=== PATIENT | female | born 1995 | race Caucasian/White ===

== ENCOUNTER 2017-09-11 07:09 | Emergency (ER) | payer OTHER ==
[~2017-09-11] VITALS: Ht 165.1 cm; Wt 75.0 kg
[2017-09-11] MEDS ORDERED: QUET100T PO (07:24)
[2017-09-11] MEDS ORDERED: LURA20TA PO (07:24)
[2017-09-11 08:03] LABS: BASOPHILS % (AUTO) 0.9 % (0.0-2.0); EOSINOPHILS % (AUTO) 3.6 % (1.0-6.0); HEMATOCRIT 35.6 % (36-46); HEMOGLOBIN 11.6 g/dL (12.0-16.0); LYMPHOCYTES % (AUTO) 23.6 % (22.0-44.0); MEAN CORPUSCULAR HEMOGLOBIN 25.1 pg (26.0-34.0); MEAN CORPUSCULAR HGB CONC 32.7 G/dL (31.0-37.0); MEAN CORPUSCULAR VOLUME 77 fL (80-100); MONOCYTES # (AUTO) 0.4 K/uL (0.1-1.0); MONOCYTES % (AUTO) 4.6 % (2.0-9.0); NEUTROPHILS # (AUTO) 5.8 K/uL (1.8-7.7); NEUTROPHILS % (AUTO) 67.3 % (40.0-70.0); PLATELET COUNT (AUTO) 332 K/uL (150-450); RED BLOOD CELL COUNT(AUTO) 4.64 MIL/uL (4.00-5.20); RED CELL DISTRIBUTION WIDTH 16.2 % (11.5-14.5)
[2017-09-11 08:12] LABS: ANION GAP 6 mmol/L (8-16); CALCIUM, TOTAL 8.3 mg/dL (8.8-10.5); CARBON DIOXIDE 27 mmol/L (22-29); CHLORIDE 103 mmol/L (98-107); CREATININE 0.93 mg/dL (0.60-1.30); GLOMERULAR FILTR. RATE CALC > 60 mL/min (>60); GLUCOSE,RANDOM 90 mg/dL (70-110); POTASSIUM 3.7 mmol/L (3.5-5.1); SODIUM SERUM 136 mmol/L (136-145); UREA NITROGEN, BLOOD 14 mg/dL (7-18)
[2017-09-11 08:18] LABS: ALANINE AMINOTRANSFERASE 30 U/L (12-78); ALKALINE PHOSPHATASE 80 U/L (46-116); ASPARTATE AMINOTRANSFERASE 17 U/L (15-37); BILIRUBIN,TOTAL 0.3 mg/dL (0.1-1.0); LIPASE 106 U/L (73-393); TOTAL PROTEIN, SERUM 7.5 g/dL (6.4-8.2)
[2017-09-11 08:30] VITALS: BP 125/68
== END 2017-09-11 09:12 | disposition home or self-care (01) ==
LOC: EMS 07:13
DX: S20.211A Contusion of right front wall of thorax, initial encounter (principal); M94.0 Chondrocostal junction syndrome [Tietze]; F17.210 Nicotine dependence, cigarettes, uncomplicated; X58.XXXA Exposure to other specified factors, initial encounter; Y93.89 Activity, other specified; Y92.89 Other specified places as the place of occurrence of the external cause; Y99.8 Other external cause status
CPT/HCPCS: 71046; 93005; 99285

== ENCOUNTER 2019-12-15 07:29 | Inpatient (IN) | payer MEDICAID, OTHER ==
[~2019-12-15] VITALS: Ht 167.6 cm; Wt 100.0 kg
[~2019-12-15 07:29] MED LIST: LURA20TA PO; QUET100T PO
[2019-12-15 08:11] LABS: BASOPHILS % (AUTO) 0.7 % (0.0-2.0); EOSINOPHILS % (AUTO) 1.8 % (1.0-6.0); HEMATOCRIT 36.5 % (36-46); HEMOGLOBIN 11.8 g/dL (12.0-16.0); LYMPHOCYTES # (AUTO) 2.5 K/uL (1.0-4.8); LYMPHOCYTES % (AUTO) 24.6 % (22.0-44.0); MEAN CORPUSCULAR HEMOGLOBIN 25.4 pg (26.0-34.0); MEAN CORPUSCULAR HGB CONC 32.3 G/dL (31.0-37.0); MEAN CORPUSCULAR VOLUME 79 fL (80-100); MONOCYTES # (AUTO) 0.4 K/uL (0.1-1.0); MONOCYTES % (AUTO) 4.1 % (2.0-9.0); NEUTROPHILS # (AUTO) 7.1 K/uL (1.8-7.7); NEUTROPHILS % (AUTO) 68.8 % (40.0-70.0); PLATELET COUNT (AUTO) 355 K/uL (150-450); RED BLOOD CELL COUNT(AUTO) 4.64 MIL/uL (4.00-5.20); RED CELL DISTRIBUTION WIDTH 14.9 % (11.5-14.5)
[2019-12-15 08:21] LABS: ANION GAP 7 mmol/L (8-16); CALCIUM, TOTAL 8.7 mg/dL (8.8-10.5); CARBON DIOXIDE 27 mmol/L (22-29); CHLORIDE 103 mmol/L (98-107); CREATININE 1.06 mg/dL (0.60-1.30); GLOMERULAR FILTR. RATE CALC > 60 mL/min (>60); GLUCOSE,RANDOM 97 mg/dL (70-110); POTASSIUM 3.6 mmol/L (3.5-5.1); SODIUM SERUM 137 mmol/L (136-145); UREA NITROGEN, BLOOD 12 mg/dL (7-18)
[2019-12-15 08:27] LABS: ALANINE AMINOTRANSFERASE 41 U/L (12-78); ALBUMIN 4.1 g/dL (3.4-5.0); ALKALINE PHOSPHATASE 79 U/L (46-116); ASPARTATE AMINOTRANSFERASE 15 U/L (15-37); BILIRUBIN,TOTAL 0.3 mg/dL (0.1-1.0); TOTAL PROTEIN, SERUM 7.5 g/dL (6.4-8.2)
[2019-12-15] MEDS ORDERED: DiphenhydrAMINE HCL 50 MG/ML VIAL IM ONE (08:30)
[2019-12-15] MEDS ORDERED: HALOPERIDOL LACTATE 5 MG/ML VIAL IM ONE (08:30)
[2019-12-15] MEDS ORDERED: LORazepam 2 MG/ML VIAL IM ONE (08:30)
[2019-12-15 08:57] LABS: AMPHET/METH SCREEN,URINE POSITIVE (NEGATIVE); BARBITURATE SCREEN, URINE NEGATIVE (NEGATIVE); BENZODIAZEPINES SCREEN,URINE NEGATIVE (NEGATIVE); CANNABINOID SCREEN,URINE NEGATIVE (NEGATIVE); COCAINE SCREEN,URINE NEGATIVE (NEGATIVE); METHADONE SCREEN, URINE NEGATIVE (NEGATIVE); OPIATE SCREEN,URINE NEGATIVE (NEGATIVE)
[2019-12-15 08:59] LABS: PHENCYCLIDINE SCREEN,URINE NEGATIVE (NEGATIVE)
[2019-12-15] MEDS ORDERED: LORazepam 2 MG TABLET PO PRN (09:30)
[2019-12-15] MEDS ORDERED: ZOLPIDEM TARTRATE 10 MG TABLET PO PRN (09:30)
[2019-12-15] MEDS ORDERED: HALOPERIDOL 5 MG TABLET PO PRN (09:30)
[2019-12-15 09:39] LABS: COVID AG,FIA SOURCE NASOPHARYNGEAL
[2019-12-15 17:52] VITALS: BP 115/67
[2019-12-16] MEDS ORDERED: LOPERAMIDE HCL 2 MG CAPSULE PO PRN (07:30)
[2019-12-16] MEDS ORDERED: ALBUTEROL SULFATE HFA 90 MCG/PUFF 8 GM INHALER IH PRN (07:30)
[2019-12-16] MEDS ORDERED: DOCUSATE SODIUM 100 MG CAPSULE PO PRN (07:30)
[2019-12-16] MEDS ORDERED: PETROLATUM,WHITE 28 GM JELLY TP PRN (07:30)
[2019-12-16] MEDS ORDERED: MAG HYDROX/AL HYDROX/SIMETH ES 30 ML SUSPENSION UDCUP PO PRN (07:30)
[2019-12-16] MEDS ORDERED: MAGNESIUM HYDROXIDE SUSPENSION 30 ML UDCUP PO PRN (07:30)
[2019-12-16] MEDS ORDERED: GuaiFENesin/D-METHORPHAN [SUGAR-FREE] 200-20MG/10 ML SYRUP UDCUP PO PRN (07:30)
[2019-12-16] MEDS ORDERED: ACETAMINOPHEN 325 MG TABLET PO PRN (07:30)
[2019-12-16] MEDS ORDERED: NICOTINE 14 MG/24 HOUR PATCH TD PRN (07:30)
[2019-12-16] MEDS ORDERED: ONDANSETRON HCL 4 MG TABLET PO PRN (07:30)
[2019-12-16] MEDS ORDERED: IBUPROFEN 400 MG TABLET PO PRN (07:30)
[2019-12-16] MEDS ORDERED: CloNIDine HCL 0.1 MG TABLET PO PRN (07:30)
[2019-12-16 08:00] VITALS: BP 122/70
[2019-12-16] MEDS: QUEtiapine FUMARATE 100 MG TABLET PO SCH (11:03)
[2019-12-16 16:14] VITALS: BP 112/65
[2019-12-16] MEDS: LURASIDONE HCL 20 MG TABLET PO SCH (20:27)
[2019-12-17 07:38] LABS: CHOL/HDL RATIO 2.8 (3.9-5.7)
[2019-12-17] MEDS: QUEtiapine FUMARATE 100 MG TABLET PO SCH (08:42)
[2019-12-17] MEDS: LURASIDONE HCL 20 MG TABLET PO SCH (20:30)
[2019-12-18 08:00] VITALS: BP 124/61
[2019-12-18] MEDS: QUEtiapine FUMARATE 100 MG TABLET PO SCH (08:15)
[2019-12-18] MEDS ORDERED: QUET100T PO (14:44)
[2019-12-18] MEDS ORDERED: LURA20TA PO (14:44)
== END 2019-12-18 14:55 | disposition home or self-care (01) | DRG 750 ==
LOC: EMS 07:30 → 3EC 09:21
PROVIDERS: ADMIT Psychiatry & Neurology Psychiatry; ATTEND Psychiatry & Neurology Psychiatry
DX: F20.9 Schizophrenia, unspecified (principal); F10.10 Alcohol abuse, uncomplicated; F17.200 Nicotine dependence, unspecified, uncomplicated; G44.209 Tension-type headache, unspecified, not intractable; F29 Unspecified psychosis not due to a substance or known physiological condition; R45.850 Homicidal ideations; Z59.0 Homelessness; Z79.899 Other long term (current) drug therapy; Z03.818 Encounter for observation for suspected exposure to other biological agents ruled out
CPT/HCPCS: 87426; 99291; G0480; J1200; J1630; J2060

== ENCOUNTER 2020-08-19 17:39 | Inpatient (IN) | payer MEDICAID ==
[~2020-08-19] VITALS: Ht 170.2 cm; Wt 109.3 kg
[2020-08-20] MEDS ORDERED: LORazepam 2 MG TABLET PO PRN (08:45)
[2020-08-20] MEDS ORDERED: HALOPERIDOL 5 MG TABLET PO PRN (08:45)
[2020-08-20] MEDS ORDERED: ZOLPIDEM TARTRATE 10 MG TABLET PO PRN (08:45)
[2020-08-20 16:25] VITALS: BP 122/73
[2020-08-20] MEDS ORDERED: ONDANSETRON HCL 4 MG TABLET PO PRN (23:45)
[2020-08-20] MEDS ORDERED: PETROLATUM,WHITE 28 GM JELLY TP PRN (23:45)
[2020-08-20] MEDS ORDERED: MAGNESIUM HYDROXIDE SUSPENSION 30 ML UDCUP PO PRN (23:45)
[2020-08-20] MEDS ORDERED: LOPERAMIDE HCL 2 MG CAPSULE PO PRN (23:45)
[2020-08-20] MEDS ORDERED: BACITRACIN 28 GM OINTMENT TP PRN (23:45)
[2020-08-20] MEDS ORDERED: ACETAMINOPHEN 325 MG TABLET PO PRN (23:45)
[2020-08-20] MEDS ORDERED: ALBUTEROL SULFATE HFA 90 MCG/PUFF 8 GM INHALER IH PRN (23:45)
[2020-08-20] MEDS ORDERED: OMEPRAZOLE 20 MG CAPSULE PO PRN (23:45)
[2020-08-20] MEDS ORDERED: MAG HYDROX/AL HYDROX/SIMETH ES 30 ML SUSPENSION UDCUP PO PRN (23:45)
[2020-08-20] MEDS ORDERED: BENZOCAINE/MENTHOL LOZENGE PO PRN (23:45)
[2020-08-20] MEDS ORDERED: CloNIDine HCL 0.1 MG TABLET PO PRN (23:45)
[2020-08-20] MEDS ORDERED: DOCUSATE SODIUM 100 MG CAPSULE PO PRN (23:45)
[2020-08-21 04:18] VITALS: BP 118/76
[2020-08-21 07:36] LABS: BASOPHILS % (AUTO) 1.1 % (0.0-2.0); EOSINOPHILS % (AUTO) 4.4 % (1.0-6.0); HEMATOCRIT 36.4 % (36-46); HEMOGLOBIN 11.5 g/dL (12.0-16.0); LYMPHOCYTES # (AUTO) 2.6 K/uL (1.0-4.8); LYMPHOCYTES % (AUTO) 36.8 % (22.0-44.0); MEAN CORPUSCULAR HGB CONC 31.5 G/dL (31.0-37.0); MEAN CORPUSCULAR VOLUME 82 fL (80-100); MONOCYTES # (AUTO) 0.3 K/uL (0.1-1.0); MONOCYTES % (AUTO) 4.1 % (2.0-9.0); NEUTROPHILS # (AUTO) 3.8 K/uL (1.8-7.7); NEUTROPHILS % (AUTO) 53.6 % (40.0-70.0); PLATELET COUNT (AUTO) 289 K/uL (150-450); RED BLOOD CELL COUNT(AUTO) 4.42 MIL/uL (4.00-5.20); RED CELL DISTRIBUTION WIDTH 14.3 % (11.5-14.5)
[2020-08-21 07:51] LABS: HEMOGLOBIN A1C 5.6 % (3.8-5.6)
[2020-08-21 08:08] LABS: ALANINE AMINOTRANSFERASE 51 U/L (12-78); ALBUMIN 2.8 g/dL (3.4-5.0); ALKALINE PHOSPHATASE 104 U/L (46-116); ANION GAP 10 mmol/L (8-16); ASPARTATE AMINOTRANSFERASE 23 U/L (15-37); BILIRUBIN,TOTAL 0.3 mg/dL (0.1-1.0); CALCIUM, TOTAL 8.2 mg/dL (8.8-10.5); CARBON DIOXIDE 23 mmol/L (22-29); CHLORIDE 110 mmol/L (98-107); CHOLESTEROL 131 mg/dL (131-200); CREATININE 0.87 mg/dL (0.60-1.30); FREE T4 (FREE THYROXINE) 0.72 ng/dL (0.76-1.46); GLOMERULAR FILTR. RATE CALC > 60 mL/min (>60); GLUCOSE,RANDOM 92 mg/dL (70-110); HCG,QUANTITATIVE 1 mIU/mL (0-6); HDL CHOLESTEROL 44 mg/dL (40-60); LDL CHOL (CALC.) 72 mg/dL (0-130); POTASSIUM 4.2 mmol/L (3.5-5.1); SODIUM SERUM 143 mmol/L (136-145); THYROID STIMULATING HORMONE 0.61 uIU/mL (0.36-3.74); TOTAL PROTEIN, SERUM 5.8 g/dL (6.4-8.2); TRIGLYCERIDES 77 mg/dL (15-150); UREA NITROGEN, BLOOD 14 mg/dL (7-18)
[2020-08-21 08:19] VITALS: BP 101/56
[2020-08-21 16:06] VITALS: BP 109/63
[2020-08-21] MEDS: OLANZapine 5 MG TABLET PO SCH (20:29)
[2020-08-22 04:06] VITALS: BP 126/76
[2020-08-22 16:08] VITALS: BP 103/68
[2020-08-22] MEDS: OLANZapine 5 MG TABLET PO SCH (19:54)
[2020-08-22] MEDS: IBUPROFEN 600 MG TABLET PO PRN (20:00)
[2020-08-23 00:54] VITALS: BP 141/85
[2020-08-23 08:15] VITALS: BP 119/58
[2020-08-23 16:12] VITALS: BP 112/63
[2020-08-23] MEDS: OLANZapine 5 MG TABLET PO SCH (20:22)
[2020-08-24 03:03] VITALS: BP 116/75
[2020-08-24 08:05] VITALS: BP 114/72
[2020-08-24 13:53] VITALS: BP 128/66
[2020-08-24] MEDS: IBUPROFEN 600 MG TABLET PO PRN ×2 (13:53→20:39)
[2020-08-24 16:21] VITALS: BP 121/72
[2020-08-24] MEDS: OLANZapine 5 MG TABLET PO SCH (20:23)
[2020-08-25 00:16] VITALS: BP 135/86
[2020-08-25] MEDS: IBUPROFEN 600 MG TABLET PO PRN ×2 (04:14→11:55)
[2020-08-25 08:48] VITALS: BP 120/71
[2020-08-25] MEDS ORDERED: OLAN5TAB52 PO (11:06)
[2020-08-25 11:48] VITALS: BP 120/74
== END 2020-08-25 12:45 | disposition home or self-care (01) | DRG 750 ==
LOC: B3A 08-20 08:45
PROVIDERS: ADMIT Psychiatry & Neurology Psychiatry; ATTEND Psychiatry & Neurology Psychiatry
DX: F20.0 Paranoid schizophrenia (principal); Z59.0 Homelessness; R45.851 Suicidal ideations; F41.9 Anxiety disorder, unspecified; G47.00 Insomnia, unspecified; K59.00 Constipation, unspecified; F15.10 Other stimulant abuse, uncomplicated
CPT/HCPCS: 80053; 80061; 83036; 84436; 84439; 84443; 84702; 85025

== ENCOUNTER 2021-07-22 09:05 | Inpatient (IN) | payer MEDICAID, OTHER ==
[~2021-07-22] VITALS: Ht 170.2 cm; Wt 115.6 kg
[~2021-07-22 09:05] MED LIST changes: -LURA20TA PO; +OLAN5TAB52 PO; -QUET100T PO
[2021-07-22 09:54] LABS: BASOPHILS % (AUTO) 0.9 % (0.0-2.0); HEMATOCRIT 37.5 % (36-46); HEMOGLOBIN 12.3 g/dL (12.0-16.0); LYMPHOCYTES # (AUTO) 2.3 K/uL (1.0-4.8); LYMPHOCYTES % (AUTO) 23.8 % (22.0-44.0); MEAN CORPUSCULAR HEMOGLOBIN 25.5 pg (26.0-34.0); MEAN CORPUSCULAR HGB CONC 32.7 G/dL (31.0-37.0); MEAN CORPUSCULAR VOLUME 78 fL (80-100); MONOCYTES # (AUTO) 0.4 K/uL (0.1-1.0); MONOCYTES % (AUTO) 4.2 % (2.0-9.0); NEUTROPHILS # (AUTO) 6.7 K/uL (1.8-7.7); NEUTROPHILS % (AUTO) 70.1 % (40.0-70.0); PLATELET COUNT (AUTO) 345 K/uL (150-450); RED BLOOD CELL COUNT(AUTO) 4.82 MIL/uL (4.00-5.20); RED CELL DISTRIBUTION WIDTH 14.7 % (11.5-14.5)
[2021-07-22 10:09] LABS: ANION GAP 9 mmol/L (8-16); CALCIUM, TOTAL 9.1 mg/dL (8.8-10.5); CARBON DIOXIDE 26 mmol/L (22-29); CHLORIDE 105 mmol/L (98-107); GLOMERULAR FILTR. RATE CALC > 60 mL/min (>60); GLUCOSE,RANDOM 90 mg/dL (70-110); POTASSIUM 3.5 mmol/L (3.5-5.1); SODIUM SERUM 140 mmol/L (136-145); UREA NITROGEN, BLOOD 13 mg/dL (7-18)
[2021-07-22 10:12] LABS: ALANINE AMINOTRANSFERASE 62 U/L (12-78); ALBUMIN 4.2 g/dL (3.4-5.0); ALKALINE PHOSPHATASE 134 U/L (46-116); ASPARTATE AMINOTRANSFERASE 21 U/L (15-37); BILIRUBIN,TOTAL 0.5 mg/dL (0.1-1.0); TOTAL PROTEIN, SERUM 8.1 g/dL (6.4-8.2)
[2021-07-22 10:12] LABS: AMPHET/METH SCREEN,URINE POSITIVE (NEGATIVE); BARBITURATE SCREEN, URINE NEGATIVE (NEGATIVE); BENZODIAZEPINES SCREEN,URINE NEGATIVE (NEGATIVE); CANNABINOID SCREEN,URINE NEGATIVE (NEGATIVE); COCAINE SCREEN,URINE NEGATIVE (NEGATIVE); METHADONE SCREEN, URINE NEGATIVE (NEGATIVE); OPIATE SCREEN,URINE NEGATIVE (NEGATIVE)
[2021-07-22 10:15] LABS: PHENCYCLIDINE SCREEN,URINE NEGATIVE (NEGATIVE)
[2021-07-22 15:43] LABS: COVID AG,FIA SOURCE NASOPHARYNGEAL
[2021-07-22 22:27] VITALS: BP 130/81
[2021-07-23] VITALS: BP 126/76
[2021-07-23 08:10] LABS: FREE T4 (FREE THYROXINE) 1.03 ng/dL (0.76-1.46); THYROID STIMULATING HORMONE 0.48 uIU/mL (0.36-3.74)
[2021-07-23] MEDS ORDERED: ALBUTEROL SULFATE HFA 90 MCG/PUFF 8 GM INHALER IH PRN (12:00)
[2021-07-23] MEDS ORDERED: ONDANSETRON HCL 4 MG TABLET PO PRN (12:00)
[2021-07-23] MEDS ORDERED: DOCUSATE SODIUM 100 MG CAPSULE PO PRN (12:00)
[2021-07-23] MEDS ORDERED: ACETAMINOPHEN 325 MG TABLET PO PRN (12:00)
[2021-07-23] MEDS ORDERED: GuaiFENesin/D-METHORPHAN [SUGAR-FREE] 200-20MG/10 ML SYRUP UDCUP PO PRN (12:00)
[2021-07-23] MEDS ORDERED: MAG HYDROX/AL HYDROX/SIMETH ES 30 ML SUSPENSION UDCUP PO PRN (12:00)
[2021-07-23] MEDS ORDERED: IBUPROFEN 400 MG TABLET PO PRN (12:00)
[2021-07-23] MEDS ORDERED: PETROLATUM,WHITE 28 GM JELLY TP PRN (12:00)
[2021-07-23] MEDS ORDERED: LOPERAMIDE HCL 2 MG CAPSULE PO PRN (12:00)
[2021-07-23] MEDS ORDERED: CloNIDine HCL 0.1 MG TABLET PO PRN (12:00)
[2021-07-23] MEDS ORDERED: MAGNESIUM HYDROXIDE SUSPENSION 30 ML UDCUP PO PRN (12:00)
[2021-07-23] MEDS: OLANZapine 5 MG TABLET PO SCH ×2 (12:45→20:01)
[2021-07-23] MEDS ORDERED: LORazepam 2 MG/ML VIAL ONE (13:42)
[2021-07-23] MEDS ORDERED: HALOPERIDOL LACTATE 5 MG/ML VIAL ONE (13:42)
[2021-07-23] MEDS ORDERED: DiphenhydrAMINE HCL 50 MG/ML VIAL ONE (13:43)
[2021-07-23] MEDS ORDERED: HALOPERIDOL LACTATE 5 MG/ML VIAL IM ONE (14:00)
[2021-07-23] MEDS ORDERED: DiphenhydrAMINE HCL 50 MG/ML VIAL IM ONE (14:00)
[2021-07-23] MEDS ORDERED: LORazepam 2 MG/ML VIAL IM ONE (14:00)
[2021-07-23 16:13] VITALS: BP 104/66
[2021-07-24 00:46] VITALS: BP 101/63
[2021-07-24 08:10] VITALS: BP 110/69
[2021-07-24] MEDS: OLANZapine 5 MG TABLET PO SCH ×2 (09:54→20:08)
[2021-07-24] MEDS: LORazepam 2 MG TABLET PO PRN (12:11)
[2021-07-24 16:12] VITALS: BP 133/87
[2021-07-25 07:27] VITALS: BP 133/85
[2021-07-25 08:07] VITALS: BP 118/79
[2021-07-25] MEDS: OLANZapine 5 MG TABLET PO SCH ×2 (09:37→20:10)
[2021-07-25 16:18] VITALS: BP 110/60
[2021-07-25] MEDS: OLANZapine 5 MG RAPDIS TABLET PO PRN (16:51)
[2021-07-26 04:30] VITALS: BP 100/60
[2021-07-26 08:09] VITALS: BP 126/74
[2021-07-26] MEDS: OLANZapine 5 MG RAPDIS TABLET PO PRN ×5 (08:29→16:13)
[2021-07-26] MEDS: OLANZapine 5 MG TABLET PO SCH ×3 (08:29→20:05)
[2021-07-26 16:39] VITALS: BP 106/52
[2021-07-27 00:15] VITALS: BP 112/68
[2021-07-27] MEDS: OLANZapine 5 MG TABLET PO SCH ×2 (08:00→20:08)
[2021-07-27 08:59] VITALS: BP 105/61
[2021-07-27 16:02] VITALS: BP 146/82
[2021-07-27] MEDS: NICOTINE 14 MG/24 HOUR PATCH TD PRN (21:32)
[2021-07-28 05:10] VITALS: BP 112/72
[2021-07-28] MEDS: OLANZapine 5 MG TABLET PO SCH (08:11)
[2021-07-28 08:17] VITALS: BP 112/66
[2021-07-28 16:01] VITALS: BP 113/74
[2021-07-28] MEDS: LORazepam 2 MG TABLET PO PRN (16:37)
[2021-07-28] MEDS: OLANZapine 5 MG RAPDIS TABLET PO PRN (16:38)
[2021-07-28] MEDS: OLANZapine 7.5 MG TABLET PO SCH (20:25)
[2021-07-28] MEDS: ZOLPIDEM TARTRATE 10 MG TABLET PO PRN (20:25)
[2021-07-29 05:29] VITALS: BP 112/68
[2021-07-29 08:04] VITALS: BP 110/62
[2021-07-29 08:20] LABS: CHOL/HDL RATIO 3.4 (3.9-5.7)
[2021-07-29] MEDS: OLANZapine 7.5 MG TABLET PO SCH ×2 (09:17→20:30)
[2021-07-29] MEDS: OLANZapine 5 MG RAPDIS TABLET PO PRN (16:27)
[2021-07-29] MEDS: LORazepam 2 MG TABLET PO PRN (16:27)
[2021-07-29 16:36] VITALS: BP 108/63
[2021-07-29] MEDS: ZOLPIDEM TARTRATE 10 MG TABLET PO PRN (20:30)
[2021-07-30 00:52] VITALS: BP 110/68
[2021-07-30 08:00] VITALS: BP 118/60
[2021-07-30] MEDS: OLANZapine 7.5 MG TABLET PO SCH ×2 (08:06→20:08)
[2021-07-30 17:23] VITALS: BP 116/67
[2021-07-31 00:44] VITALS: BP 113/73
[2021-07-31] MEDS: OLANZapine 5 MG RAPDIS TABLET PO PRN (08:11)
[2021-07-31] MEDS: OLANZapine 7.5 MG TABLET PO SCH ×2 (09:14→20:23)
[2021-07-31] MEDS: CIPROFLOXACIN HCL 0.2%/HYDROCORT 1% 10 ML OTIC SUSPENSION AS SCH (16:05)
[2021-07-31 16:23] VITALS: BP 116/65
[2021-08-01 07:16] VITALS: BP 124/68
[2021-08-01 07:57] VITALS: BP 132/76
[2021-08-01] MEDS: CIPROFLOXACIN HCL 0.2%/HYDROCORT 1% 10 ML OTIC SUSPENSION AS SCH ×3 (08:02→16:13)
[2021-08-01] MEDS: OLANZapine 7.5 MG TABLET PO SCH ×2 (08:03→20:18)
[2021-08-01 08:06] VITALS: BP 123/66
[2021-08-01 16:19] VITALS: BP 118/80
[2021-08-01] MEDS: ZOLPIDEM TARTRATE 10 MG TABLET PO PRN (20:18)
[2021-08-02 05:52] VITALS: BP 121/65
[2021-08-02 08:10] VITALS: BP 126/74
[2021-08-02] MEDS: CIPROFLOXACIN HCL 0.2%/HYDROCORT 1% 10 ML OTIC SUSPENSION AS SCH ×3 (08:24→16:16)
[2021-08-02] MEDS: OLANZapine 7.5 MG TABLET PO SCH ×2 (08:24→20:08)
[2021-08-02 16:22] VITALS: BP 118/71
[2021-08-03 01:09] VITALS: BP 112/68
[2021-08-03 08:09] VITALS: BP 120/89
[2021-08-03] MEDS: OLANZapine 7.5 MG TABLET PO SCH ×2 (08:10→20:13)
[2021-08-03] MEDS: CIPROFLOXACIN HCL 0.2%/HYDROCORT 1% 10 ML OTIC SUSPENSION AS SCH ×3 (08:10→16:14)
[2021-08-03 16:03] VITALS: BP 118/79
[2021-08-04 00:51] VITALS: BP 114/72
[2021-08-04 08:13] VITALS: BP 120/66
[2021-08-04] MEDS: OLANZapine 7.5 MG TABLET PO SCH ×2 (08:29→20:03)
[2021-08-04] MEDS: CIPROFLOXACIN HCL 0.2%/HYDROCORT 1% 10 ML OTIC SUSPENSION AS SCH ×3 (08:30→16:03)
[2021-08-04 16:25] VITALS: BP 136/64
[2021-08-04] MEDS: ZOLPIDEM TARTRATE 10 MG TABLET PO PRN (21:39)
[2021-08-05 00:04] VITALS: BP 131/60
[2021-08-05 08:00] VITALS: BP 133/67
[2021-08-05] MEDS: OLANZapine 7.5 MG TABLET PO SCH ×2 (08:08→20:18)
[2021-08-05] MEDS: CIPROFLOXACIN HCL 0.2%/HYDROCORT 1% 10 ML OTIC SUSPENSION AS SCH ×3 (08:08→16:12)
[2021-08-05 16:21] LABS: GLUCOMETER DEV NAME(LOC) POC.BV
[2021-08-05 17:12] VITALS: BP 129/82
[2021-08-05] MEDS: NICOTINE 14 MG/24 HOUR PATCH TD PRN (20:18)
[2021-08-05] MEDS: ZOLPIDEM TARTRATE 10 MG TABLET PO PRN (20:49)
[2021-08-06 05:42] VITALS: BP 151/84
[2021-08-06 07:12] VITALS: BP 112/67
[2021-08-06] MEDS: OLANZapine 7.5 MG TABLET PO SCH ×2 (08:06→20:04)
[2021-08-06] MEDS: CIPROFLOXACIN HCL 0.2%/HYDROCORT 1% 10 ML OTIC SUSPENSION AS SCH ×3 (08:07→16:07)
[2021-08-06 16:05] VITALS: BP 131/68
[2021-08-06] MEDS: ZOLPIDEM TARTRATE 10 MG TABLET PO PRN (20:05)
[2021-08-06] MEDS: NICOTINE 14 MG/24 HOUR PATCH TD PRN (20:06)
[2021-08-07 00:09] VITALS: BP 126/70
[2021-08-07] MEDS ORDERED: OLAN7.5T22 PO (04:51)
[2021-08-07 08:37] VITALS: BP 118/65
[2021-08-07] MEDS: CIPROFLOXACIN HCL 0.2%/HYDROCORT 1% 10 ML OTIC SUSPENSION AS SCH (09:03)
[2021-08-07] MEDS: OLANZapine 7.5 MG TABLET PO SCH (09:07)
== END 2021-08-07 10:00 | disposition home or self-care (01) | DRG 750 ==
LOC: EMS 09:05 → B3A 14:59
PROVIDERS: ADMIT Psychiatry & Neurology Psychiatry; ATTEND Psychiatry & Neurology Psychiatry
DX: F20.0 Paranoid schizophrenia (principal); R45.850 Homicidal ideations; E66.9 Obesity, unspecified; Z20.822 Contact with and (suspected) exposure to COVID-19; F15.20 Other stimulant dependence, uncomplicated; G47.00 Insomnia, unspecified; F17.210 Nicotine dependence, cigarettes, uncomplicated; F41.9 Anxiety disorder, unspecified; Z68.39 Body mass index [BMI] 39.0-39.9, adult; Z91.51 Personal history of suicidal behavior
CPT/HCPCS: 80053; 80061; 84439; 84443; 85025; 99285; G0480; J1200; J1630; J2060

== ENCOUNTER 2021-10-18 03:49 | Emergency (ER) | payer MEDICAID ==
[~2021-10-18] VITALS: Ht 162.6 cm; Wt 113.6 kg
[~2021-10-18 03:49] MED LIST changes: -OLAN5TAB52 PO; +OLAN7.5T22 PO
[2021-10-18 04:00] VITALS: BP 108/66
[2021-10-18] MEDS ORDERED: OLANZapine 5 MG TABLET PO ONE (04:45)
== END 2021-10-18 06:27 | disposition home or self-care (01) ==
LOC: EMS 03:49
DX: F20.9 Schizophrenia, unspecified (principal); F15.10 Other stimulant abuse, uncomplicated; F41.9 Anxiety disorder, unspecified; F17.210 Nicotine dependence, cigarettes, uncomplicated; Z79.899 Other long term (current) drug therapy
CPT/HCPCS: 99283; Z7502

== ENCOUNTER 2022-01-25 23:14 | Emergency (ER) | payer OTHER ==
[~2022-01-25] VITALS: Ht 172.7 cm; Wt 113.6 kg
[2022-01-26 00:28] LABS: BASOPHILS % (AUTO) 0.8 % (0.0-2.0); EOSINOPHILS % (AUTO) 2.6 % (1.0-6.0); HEMATOCRIT 37.2 % (36-46); HEMOGLOBIN 11.6 g/dL (12.0-16.0); LYMPHOCYTES # (AUTO) 3.1 K/uL (1.0-4.8); LYMPHOCYTES % (AUTO) 32.9 % (22.0-44.0); MEAN CORPUSCULAR HGB CONC 31.3 G/dL (31.0-37.0); MEAN CORPUSCULAR VOLUME 80 fL (80-100); MONOCYTES # (AUTO) 0.4 K/uL (0.1-1.0); MONOCYTES % (AUTO) 4.8 % (2.0-9.0); NEUTROPHILS # (AUTO) 5.5 K/uL (1.8-7.7); NEUTROPHILS % (AUTO) 58.9 % (40.0-70.0); PLATELET COUNT (AUTO) 315 K/uL (150-450); RED BLOOD CELL COUNT(AUTO) 4.65 MIL/uL (4.00-5.20); RED CELL DISTRIBUTION WIDTH 14.5 % (11.5-14.5)
[2022-01-26] MEDS ORDERED: HALOPERIDOL 5 MG TABLET PO ONE (00:30)
[2022-01-26 00:36] LABS: ANION GAP 8 mmol/L (8-16); CALCIUM, TOTAL 9.3 mg/dL (8.8-10.5); CARBON DIOXIDE 27 mmol/L (22-29); CHLORIDE 104 mmol/L (98-107); CREATININE 0.99 mg/dL (0.60-1.30); GLUCOSE,RANDOM 73 mg/dL (70-110); POTASSIUM 3.3 mmol/L (3.5-5.1); SODIUM SERUM 139 mmol/L (136-145); UREA NITROGEN, BLOOD 17 mg/dL (7-18)
[2022-01-26 00:40] LABS: GLOMERULAR FILTR. RATE CALC > 60 mL/min (>60)
[2022-01-26 00:42] LABS: ALANINE AMINOTRANSFERASE 44 U/L (12-78); ALBUMIN 3.8 g/dL (3.4-5.0); ALKALINE PHOSPHATASE 120 U/L (46-116); ASPARTATE AMINOTRANSFERASE 14 U/L (15-37); BILIRUBIN,TOTAL 0.4 mg/dL (0.1-1.0); TOTAL PROTEIN, SERUM 7.1 g/dL (6.4-8.2)
[2022-01-26 02:13] LABS: COVID AG,FIA SOURCE NASAL SWAB
[2022-01-26 06:50] VITALS: BP 137/79
== END 2022-01-26 10:23 ==
LOC: EMS 23:15
DX: F20.9 Schizophrenia, unspecified (principal); F15.10 Other stimulant abuse, uncomplicated; F41.9 Anxiety disorder, unspecified; F17.210 Nicotine dependence, cigarettes, uncomplicated; Z20.822 Contact with and (suspected) exposure to COVID-19
CPT/HCPCS: 99285; 87426; 80053; 85025; 36415; G0480

== ENCOUNTER 2022-03-01 17:37 | Emergency (ER) | payer OTHER ==
[~2022-03-01] VITALS: Ht 167.6 cm; Wt 68.0 kg
[2022-03-01 19:44] VITALS: BP 120/73
[2022-03-01 20:42] LABS: BASOPHILS % (AUTO) 0.5 % (0.0-2.0); EOSINOPHILS % (AUTO) 2.4 % (1.0-6.0); HEMATOCRIT 38.2 % (36-46); LYMPHOCYTES # (AUTO) 3.1 K/uL (1.0-4.8); LYMPHOCYTES % (AUTO) 26.9 % (22.0-44.0); MEAN CORPUSCULAR HEMOGLOBIN 24.7 pg (26.0-34.0); MEAN CORPUSCULAR HGB CONC 31.5 G/dL (31.0-37.0); MEAN CORPUSCULAR VOLUME 78 fL (80-100); MONOCYTES # (AUTO) 0.6 K/uL (0.1-1.0); NEUTROPHILS # (AUTO) 7.4 K/uL (1.8-7.7); NEUTROPHILS % (AUTO) 65.2 % (40.0-70.0); PLATELET COUNT (AUTO) 319 K/uL (150-450); RED BLOOD CELL COUNT(AUTO) 4.88 MIL/uL (4.00-5.20); RED CELL DISTRIBUTION WIDTH 14.6 % (11.5-14.5)
[2022-03-01 20:51] LABS: ANION GAP 6 mmol/L (8-16); CALCIUM, TOTAL 9.3 mg/dL (8.8-10.5); CARBON DIOXIDE 28 mmol/L (22-29); CHLORIDE 103 mmol/L (98-107); CREATININE 0.98 mg/dL (0.60-1.30); GLUCOSE,RANDOM 82 mg/dL (70-110); POTASSIUM 3.8 mmol/L (3.5-5.1); SODIUM SERUM 137 mmol/L (136-145); UREA NITROGEN, BLOOD 12 mg/dL (7-18)
[2022-03-01 20:54] LABS: GLOMERULAR FILTR. RATE CALC > 60 mL/min (>60)
[2022-03-01 20:55] LABS: INR 1.1 (0.9-1.1); PROTHROMBIN TIME 11.3 SEC (9.4-11.6)
[2022-03-01 20:57] LABS: ALANINE AMINOTRANSFERASE 47 U/L (12-78); ALBUMIN 3.6 g/dL (3.4-5.0); ALKALINE PHOSPHATASE 120 U/L (46-116); ASPARTATE AMINOTRANSFERASE 16 U/L (15-37); BILIRUBIN,TOTAL 0.4 mg/dL (0.1-1.0); LIPASE 116 U/L (73-393); TOTAL PROTEIN, SERUM 7.3 g/dL (6.4-8.2)
== END 2022-03-02 01:49 | disposition home or self-care (01) ==
LOC: EMS 17:54
DX: K52.9 Noninfective gastroenteritis and colitis, unspecified (principal); F41.9 Anxiety disorder, unspecified; J45.909 Unspecified asthma, uncomplicated; F20.9 Schizophrenia, unspecified; F17.210 Nicotine dependence, cigarettes, uncomplicated; F15.90 Other stimulant use, unspecified, uncomplicated
CPT/HCPCS: 80053; 83690; 85025; 85610; 85730; 99285

== ENCOUNTER 2022-03-02 01:40 | Emergency (ER) | payer OTHER ==
[~2022-03-02] VITALS: Ht 167.6 cm; Wt 84.0 kg
[2022-03-02 01:43] VITALS: BP 120/75
== END 2022-03-02 04:36 | disposition home or self-care (01) ==
LOC: EMS 01:43
DX: K52.9 Noninfective gastroenteritis and colitis, unspecified (principal); F41.9 Anxiety disorder, unspecified; J45.909 Unspecified asthma, uncomplicated; F20.9 Schizophrenia, unspecified; F17.210 Nicotine dependence, cigarettes, uncomplicated; F15.90 Other stimulant use, unspecified, uncomplicated; Z02.79 Encounter for issue of other medical certificate
CPT/HCPCS: 99283

== ENCOUNTER 2022-12-26 08:57 | Inpatient (IN) | payer MEDICAID, OTHER ==
[~2022-12-26] VITALS: Ht 170.2 cm; Wt 133.4 kg
[2022-12-26 09:17] LABS: COVID AG,FIA SOURCE NASAL SWAB
[2022-12-26 09:39] LABS: SARS-COV2 (COVID) ANTIGEN,FIA Negative (Negative)
[2022-12-26] MEDS ORDERED: DiphenhydrAMINE HCL 50 MG/ML VIAL IM ONE (10:00)
[2022-12-26] MEDS ORDERED: HALOPERIDOL LACTATE 5 MG/ML VIAL IM ONE (10:00)
[2022-12-26] MEDS ORDERED: LORazepam 2 MG/ML VIAL IM ONE (10:00)
[2022-12-26] MEDS ORDERED: ZOLPIDEM TARTRATE 10 MG TABLET PO PRN (10:15)
[2022-12-26] MEDS ORDERED: TUBERCULIN, PURIFIED PROTEIN DERIVATIVE 5 TU/0.1 ML SYRINGE ID ONE (10:15)
[2022-12-26] MEDS ORDERED: HydrOXYzine PAMOATE 50 MG CAPSULE PO PRN (10:15)
[2022-12-26] MEDS ORDERED: ACETAMINOPHEN 325 MG TABLET PO PRN (10:15)
[2022-12-26] MEDS ORDERED: OLANZapine 5 MG RAPDIS TABLET PO PRN (10:15)
[2022-12-26] MEDS ORDERED: GuaiFENesin/D-METHORPHAN [SUGAR-FREE] 200-20MG/10 ML SYRUP UDCUP PO PRN (10:15)
[2022-12-26] MEDS ORDERED: LOPERAMIDE HCL 2 MG CAPSULE PO PRN (10:15)
[2022-12-26] MEDS ORDERED: MAG HYDROX/AL HYDROX/SIMETH ES 30 ML SUSPENSION UDCUP PO PRN (10:15)
[2022-12-26] MEDS ORDERED: PROMETHAZINE HCL 25 MG TABLET PO PRN (10:15)
[2022-12-26] MEDS ORDERED: MAGNESIUM HYDROXIDE SUSPENSION 30 ML UDCUP PO PRN (10:15)
[2022-12-26 10:37] LABS: BASOPHILS % (AUTO) 0.8 % (0.0-2.0); EOSINOPHILS % (AUTO) 1.4 % (1.0-6.0); HEMATOCRIT 39.4 % (36-46); HEMOGLOBIN 12.6 g/dL (12.0-16.0); LYMPHOCYTES # (AUTO) 2.7 K/uL (1.0-4.8); LYMPHOCYTES % (AUTO) 26.8 % (22.0-44.0); MEAN CORPUSCULAR HEMOGLOBIN 25.1 pg (26.0-34.0); MEAN CORPUSCULAR HGB CONC 31.9 G/dL (31.0-37.0); MEAN CORPUSCULAR VOLUME 79 fL (80-100); MONOCYTES # (AUTO) 0.4 K/uL (0.1-1.0); MONOCYTES % (AUTO) 4.2 % (2.0-9.0); NEUTROPHILS # (AUTO) 6.7 K/uL (1.8-7.7); NEUTROPHILS % (AUTO) 66.8 % (40.0-70.0); PLATELET COUNT (AUTO) 308 K/uL (150-450); RED CELL DISTRIBUTION WIDTH 14.3 % (11.5-14.5)
[2022-12-26 10:45] LABS: ANION GAP 14 mmol/L (8-16); CALCIUM, TOTAL 9.2 mg/dL (8.8-10.5); CARBON DIOXIDE 22 mmol/L (22-29); CHLORIDE 103 mmol/L (98-107); CREATININE 0.86 mg/dL (0.60-1.30); GLOMERULAR FILTR. RATE CALC > 60 mL/min (>60); GLUCOSE,RANDOM 235 mg/dL (70-110); POTASSIUM 3.4 mmol/L (3.5-5.1); SODIUM SERUM 139 mmol/L (136-145); UREA NITROGEN, BLOOD 17 mg/dL (7-18)
[2022-12-26 10:51] LABS: ALANINE AMINOTRANSFERASE 55 U/L (12-78); ALBUMIN 3.7 g/dL (3.4-5.0); ALKALINE PHOSPHATASE 131 U/L (46-116); ASPARTATE AMINOTRANSFERASE 33 U/L (15-37); BILIRUBIN,TOTAL 0.5 mg/dL (0.1-1.0); TOTAL PROTEIN, SERUM 7.4 g/dL (6.4-8.2)
[2022-12-26 11:02] LABS: PH,URINE DRUG SCREEN 5.5 (5.0-8.0)
[2022-12-26 11:08] LABS: ALCOHOL, URINE DRUG SCREEN NEGATIVE (NEGATIVE); AMPHET/METH SCREEN,URINE POSITIVE (NEGATIVE); BARBITURATE SCREEN, URINE NEGATIVE (NEGATIVE); BENZODIAZEPINES SCREEN,URINE NEGATIVE (NEGATIVE); CANNABINOID SCREEN,URINE NEGATIVE (NEGATIVE); COCAINE SCREEN,URINE NEGATIVE (NEGATIVE); METHADONE SCREEN, URINE NEGATIVE (NEGATIVE); OPIATE SCREEN,URINE NEGATIVE (NEGATIVE); PHENCYCLIDINE SCREEN,URINE NEGATIVE (NEGATIVE)
[2022-12-26 11:15] LABS: ALCOHOL, BLOOD (SERUM) < 3 mg/dL (0-10)
[2022-12-26] MEDS ORDERED: PALIPERIDONE PALMITATE 234 MG/1.5 ML SYRINGE IM ONE (15:00)
[2022-12-26 16:00] VITALS: BP 120/71; PULSE 103; RESP 18; TEMP 97.8; O2SAT 97
[2022-12-26] MEDS ORDERED: POTASSIUM CHLORIDE 20 MEQ ER TABLET PO ONE (16:00)
[2022-12-26] MEDS: THIAMINE 100 MG TABLET PO SCH (18:21)
[2022-12-26] MEDS: DIVALPROEX SODIUM 500 MG ER TABLET PO SCH (20:00)
[2022-12-26] MEDS: MELATONIN 5 MG TABLET PO SCH (20:01)
[2022-12-26] MEDS: OLANZapine 5 MG RAPDIS TABLET PO SCH (20:01)
[2022-12-26 20:05] VITALS: BP 121/72; PULSE 100; RESP 19; TEMP 97.7; O2SAT 97
[2022-12-27] MEDS: OMEGA-3/DHA/EPA/FISH OIL 1,000 MG CAPSULE PO SCH (08:01)
[2022-12-27] MEDS: MULTIVITAMINS WITH MINERALS, THERAPEUTIC TABLET PO SCH (08:01)
[2022-12-27] MEDS: LORazepam 2 MG TABLET PO PRN ×2 (08:01→16:18)
[2022-12-27] MEDS: THIAMINE 100 MG TABLET PO SCH ×2 (08:01→16:18)
[2022-12-27] MEDS: FOLIC ACID 1 MG TABLET PO SCH (08:01)
[2022-12-27 08:47] LABS: ANION GAP 10 mmol/L (8-16); CALCIUM, TOTAL 8.3 mg/dL (8.8-10.5); CARBON DIOXIDE 22 mmol/L (22-29); CHLORIDE 103 mmol/L (98-107); CHOL/HDL RATIO 5.1 (3.9-5.7); CHOLESTEROL 152 mg/dL (131-200); CREATININE 0.81 mg/dL (0.60-1.30); FREE T4 (FREE THYROXINE) 0.97 ng/dL (0.76-1.46); GLOMERULAR FILTR. RATE CALC > 60 mL/min (>60); GLUCOSE,RANDOM 294 mg/dL (70-110); HDL CHOLESTEROL 30 mg/dL (40-60); LDL CHOL (CALC.) 88 mg/dL (0-130); POTASSIUM 4.2 mmol/L (3.5-5.1); SODIUM SERUM 135 mmol/L (136-145); THYROID STIMULATING HORMONE 1.98 uIU/mL (0.36-3.74); TRIGLYCERIDES 171 mg/dL (15-150); UREA NITROGEN, BLOOD 14 mg/dL (7-18)
[2022-12-27 08:55] LABS: HEMOGLOBIN A1C 9.7 % (3.8-5.6)
[2022-12-27 10:24] VITALS: BP 118/69; PULSE 88; RESP 18; TEMP 98; O2SAT 98
[2022-12-27 19:59] VITALS: BP 142/67; PULSE 100; RESP 17; TEMP 97.5; O2SAT 98
[2022-12-27] MEDS: DIVALPROEX SODIUM 500 MG ER TABLET PO SCH (20:13)
[2022-12-27] MEDS: MELATONIN 5 MG TABLET PO SCH (20:13)
[2022-12-27] MEDS: OLANZapine 5 MG RAPDIS TABLET PO SCH (20:14)
[2022-12-28 03:12] VITALS: RESP 16
[2022-12-28] MEDS: FOLIC ACID 1 MG TABLET PO SCH (08:11)
[2022-12-28] MEDS: OMEGA-3/DHA/EPA/FISH OIL 1,000 MG CAPSULE PO SCH (08:11)
[2022-12-28] MEDS: MULTIVITAMINS WITH MINERALS, THERAPEUTIC TABLET PO SCH (08:11)
[2022-12-28] MEDS: THIAMINE 100 MG TABLET PO SCH ×2 (08:11→16:06)
[2022-12-28 12:30] VITALS: BP 126/64; PULSE 88; RESP 18; TEMP 97.3; O2SAT 98
[2022-12-28 20:06] VITALS: BP 123/72; PULSE 98; RESP 18; TEMP 98; O2SAT 97
[2022-12-28] MEDS: MELATONIN 5 MG TABLET PO SCH (20:13)
[2022-12-28] MEDS: DIVALPROEX SODIUM 500 MG ER TABLET PO SCH (20:13)
[2022-12-28] MEDS ORDERED: OLANZapine 5 MG RAPDIS TABLET PO SCH (21:00)
[2022-12-29 08:16] VITALS: BP 120/77; PULSE 90; RESP 18; TEMP 97.7; O2SAT 99
[2022-12-29] MEDS: OMEGA-3/DHA/EPA/FISH OIL 1,000 MG CAPSULE PO SCH (08:37)
[2022-12-29] MEDS: THIAMINE 100 MG TABLET PO SCH ×2 (08:37→17:12)
[2022-12-29] MEDS: FOLIC ACID 1 MG TABLET PO SCH (08:37)
[2022-12-29] MEDS: MULTIVITAMINS WITH MINERALS, THERAPEUTIC TABLET PO SCH (08:37)
[2022-12-29] MEDS ORDERED: MELA5TAB40 PO (16:00)
[2022-12-29] MEDS ORDERED: DIVA500T69 PO (16:00)
[2022-12-29] MEDS ORDERED: OMEG-135 PO (16:00)
[2022-12-29] MEDS ORDERED: PALI117D IM (16:00)
[2022-12-29] MEDS ORDERED: NALT50TA6 PO (16:00)
[2022-12-29] MEDS: MELATONIN 5 MG TABLET PO SCH (20:13)
[2022-12-29] MEDS: DIVALPROEX SODIUM 500 MG ER TABLET PO SCH (20:13)
[2022-12-29 21:12] VITALS: BP 115/65; PULSE 94; RESP 18; TEMP 97.1; O2SAT 98
[2022-12-30] MEDS ORDERED: PALIPERIDONE PALMITATE 156 MG/ML SYRINGE IM ONE (09:00)
[2022-12-30] MEDS: OMEGA-3/DHA/EPA/FISH OIL 1,000 MG CAPSULE PO SCH (09:49)
[2022-12-30] MEDS: MULTIVITAMINS WITH MINERALS, THERAPEUTIC TABLET PO SCH (09:49)
[2022-12-30] MEDS: THIAMINE 100 MG TABLET PO SCH (09:50)
[2022-12-30] MEDS: FOLIC ACID 1 MG TABLET PO SCH (09:50)
== END 2022-12-30 13:16 | disposition home or self-care (01) | DRG 750 ==
LOC: EMS 08:57 → B3A 12:40
PROVIDERS: ADMIT Psychiatry & Neurology Psychiatry; ATTEND Psychiatry & Neurology Psychiatry
DX: F25.9 Schizoaffective disorder, unspecified (principal); R45.851 Suicidal ideations; E87.6 Hypokalemia; F41.1 Generalized anxiety disorder; F12.20 Cannabis dependence, uncomplicated; F15.20 Other stimulant dependence, uncomplicated; Z20.822 Contact with and (suspected) exposure to COVID-19; F10.20 Alcohol dependence, uncomplicated; J45.909 Unspecified asthma, uncomplicated; F17.210 Nicotine dependence, cigarettes, uncomplicated; T43.506A Underdosing of unspecified antipsychotics and neuroleptics, initial encounter; Y92.89 Other specified places as the place of occurrence of the external cause; Z55.9 Problems related to education and literacy, unspecified; Z59.9 Problem related to housing and economic circumstances, unspecified; Z63.9 Problem related to primary support group, unspecified; Z65.3 Problems related to other legal circumstances; Z88.6 Allergy status to analgesic agent
CPT/HCPCS: 80048; 80053; 80061; 80164; 80307; 83036; 84439; 84443; 85025; 86592; G0480; J1200; J1630; J2060; Q9967

== ENCOUNTER 2023-01-01 20:26 | Emergency (ER) | payer MEDICAID, OTHER ==
[~2023-01-01] VITALS: Ht 170.2 cm; Wt 133.0 kg
[~2023-01-01 20:26] MED LIST changes: +DIVA500T69 PO; +MELA5TAB40 PO; +NALT50TA6 PO; -OLAN7.5T22 PO; +OMEG-135 PO; +PALI117D IM
[2023-01-01 20:40] VITALS: BP 130/65; PULSE 97; RESP 18; TEMP 98.3
[2023-01-01] MEDS ORDERED: ACETAMINOPHEN 500 MG TABLET PO ONE (21:00)
[2023-01-01] MEDS ORDERED: CEPHALEXIN MONOHYDRATE 500 MG CAPSULE PO ONE (21:00)
[2023-01-01] MEDS ORDERED: PHENAZOPYRIDINE HCL 100 MG TABLET PO ONE (21:00)
[2023-01-01] MEDS ORDERED: CEPH-558 PO (21:03)
[2023-01-01] MEDS ORDERED: ACET-66 PO (21:03)
[2023-01-01] MEDS ORDERED: PHEN-674 PO (21:03)
== END 2023-01-01 21:11 | disposition home or self-care (01) ==
LOC: EMS 20:30
DX: N39.0 Urinary tract infection, site not specified (principal); F25.9 Schizoaffective disorder, unspecified; F41.9 Anxiety disorder, unspecified; J45.909 Unspecified asthma, uncomplicated; F17.210 Nicotine dependence, cigarettes, uncomplicated; F15.90 Other stimulant use, unspecified, uncomplicated; Z88.6 Allergy status to analgesic agent
CPT/HCPCS: 99284; Z7502; Z7610

== ENCOUNTER 2023-02-13 15:17 | Inpatient (IN) | payer OTHER ==
[~2023-02-13] VITALS: Ht 157.5 cm; Wt 118.2 kg
[~2023-02-13 15:17] MED LIST changes: +ACET-66 PO; +CEPH-558 PO; +PHEN-674 PO
[2023-02-13] MEDS ORDERED: OLANZapine 5 MG TABLET PO ONE (16:30)
[2023-02-13] MEDS ORDERED: LORazepam 1 MG TABLET PO ONE (16:30)
[2023-02-13] MEDS ORDERED: OLANZapine 5 MG RAPDIS TABLET PO PRN (16:45)
[2023-02-13] MEDS ORDERED: ZOLPIDEM TARTRATE 10 MG TABLET PO PRN (16:45)
[2023-02-13] MEDS ORDERED: LORazepam 2 MG TABLET PO PRN (16:45)
[2023-02-13] MEDS ORDERED: OLAN20TA35 PO (16:52)
[2023-02-13 16:53] LABS: BASOPHILS % (AUTO) 0.6 % (0.0-2.0); EOSINOPHILS % (AUTO) 1.8 % (1.0-6.0); HEMATOCRIT 38.5 % (36-46); HEMOGLOBIN 12.7 g/dL (12.0-16.0); LYMPHOCYTES # (AUTO) 2.8 K/uL (1.0-4.8); LYMPHOCYTES % (AUTO) 26.4 % (22.0-44.0); MEAN CORPUSCULAR HEMOGLOBIN 26.1 pg (26.0-34.0); MEAN CORPUSCULAR HGB CONC 32.9 G/dL (31.0-37.0); MEAN CORPUSCULAR VOLUME 79 fL (80-100); MONOCYTES # (AUTO) 0.4 K/uL (0.1-1.0); NEUTROPHILS # (AUTO) 7.2 K/uL (1.8-7.7); NEUTROPHILS % (AUTO) 67.2 % (40.0-70.0); PLATELET COUNT (AUTO) 335 K/uL (150-450); RED BLOOD CELL COUNT(AUTO) 4.85 MIL/uL (4.00-5.20); RED CELL DISTRIBUTION WIDTH 14.6 % (11.5-14.5); WHITE BLOOD COUNT (AUTO) 10.7 K/uL (4.5-11.0)
[2023-02-13 17:02] LABS: ANION GAP 12 mmol/L (8-16); CALCIUM, TOTAL 8.9 mg/dL (8.8-10.5); CARBON DIOXIDE 24 mmol/L (22-29); CHLORIDE 104 mmol/L (98-107); CREATININE 1.06 mg/dL (0.60-1.30); GLOMERULAR FILTR. RATE CALC > 60 mL/min (>60); GLUCOSE,RANDOM 150 mg/dL (70-110); POTASSIUM 3.2 mmol/L (3.5-5.1); SODIUM SERUM 139 mmol/L (136-145); UREA NITROGEN, BLOOD 15 mg/dL (7-18)
[2023-02-13 17:11] LABS: ALCOHOL, BLOOD (SERUM) < 3 mg/dL (0-10)
[2023-02-13 17:13] LABS: ALANINE AMINOTRANSFERASE 101 U/L (12-78); ALKALINE PHOSPHATASE 129 U/L (46-116); ASPARTATE AMINOTRANSFERASE 41 U/L (15-37); BILIRUBIN,TOTAL 0.4 mg/dL (0.1-1.0); HCG,QUANTITATIVE < 1 mIU/mL (0-6); TOTAL PROTEIN, SERUM 8.2 g/dL (6.4-8.2)
[2023-02-13 18:59] LABS: ALCOHOL, URINE DRUG SCREEN NEGATIVE (NEGATIVE); AMPHET/METH SCREEN,URINE POSITIVE (NEGATIVE); BARBITURATE SCREEN, URINE NEGATIVE (NEGATIVE); BENZODIAZEPINES SCREEN,URINE NEGATIVE (NEGATIVE); CANNABINOID SCREEN,URINE NEGATIVE (NEGATIVE); COCAINE SCREEN,URINE NEGATIVE (NEGATIVE); METHADONE SCREEN, URINE NEGATIVE (NEGATIVE); OPIATE SCREEN,URINE NEGATIVE (NEGATIVE); PHENCYCLIDINE SCREEN,URINE NEGATIVE (NEGATIVE)
[2023-02-13 19:02] LABS: COVID AG,FIA SOURCE NASAL SWAB
[2023-02-13 19:31] LABS: APPEARANCE,URINE TURBID (CLEAR); BILIRUBIN,URINE NEGATIVE (NEGATIVE); COLOR,URINE ORANGE (YELLOW); GLUCOSE, URINE (UA) TRACE mg/dL (NEGATIVE); KETONES,URINE NEGATIVE (NEGATIVE); LEUKOCYTE ESTERASE ,URINE TRACE (NEGATIVE); NITRATE,URINE NEGATIVE (NEGATIVE); OCCULT BLOOD,URINE NEGATIVE (NEGATIVE); PROTEIN,URINE 30-70 mg/dL (NEGATIVE); SPECIFIC GRAVITIY, URINE 1.042 (1.003-1.030); UROBILINOGEN,URINE <=1.0 mg/dL (<=1.0)
[2023-02-13 19:50] LABS: RBC,URINE None Seen /HPF (0-2)
[2023-02-13 19:52] LABS: BACTERIA,URINE Moderate /HPF (None Seen)
[2023-02-13 20:10] LABS: SARS-COV2 (COVID) ANTIGEN,FIA Positive (Negative)
[2023-02-13] MEDS ORDERED: PANTOPRAZOLE SODIUM 40 MG DR TABLET PO ONE (22:45)
[2023-02-13] MEDS ORDERED: IPRATROPIUM BROMIDE 0.5 MG/2.5 ML NEB SOLUTION NEB PRN (22:45)
[2023-02-13] MEDS ORDERED: ONDANSETRON HCL 4 MG/2 ML VIAL IVP PRN ×2 (22:45)
[2023-02-13] MEDS ORDERED: MAGNESIUM HYDROXIDE SUSPENSION 30 ML UDCUP PO PRN (22:45)
[2023-02-13] MEDS ORDERED: BISACODYL 10 MG RECTAL RECTAL SUPPOSITORY PR PRN (22:45)
[2023-02-13] MEDS ORDERED: ZOLPIDEM TARTRATE 5 MG TABLET PO PRN (22:45)
[2023-02-13] MEDS ORDERED: 0.9% SODIUM CHLORIDE 10 ML SYRINGE IVP PRN (22:45)
[2023-02-13] MEDS ORDERED: ACETAMINOPHEN 325 MG TABLET PO PRN ×2 (22:45)
[2023-02-13] MEDS ORDERED: ALBUTEROL SULFATE 2.5 MG/0.5 ML NEB SOLUTION NEB PRN (22:45)
[2023-02-14] MEDS: HEPARIN SODIUM,PORCINE 5,000 UNITS/ML VIAL SQ SCH ×4 (08:00→23:59)
[2023-02-14 08:20] LABS: BASOPHILS % (AUTO) 0.9 % (0.0-2.0); HEMATOCRIT 38.8 % (36-46); HEMOGLOBIN 12.8 g/dL (12.0-16.0); LYMPHOCYTES # (AUTO) 2.5 K/uL (1.0-4.8); LYMPHOCYTES % (AUTO) 25.1 % (22.0-44.0); MEAN CORPUSCULAR HEMOGLOBIN 26.4 pg (26.0-34.0); MEAN CORPUSCULAR HGB CONC 33.1 G/dL (31.0-37.0); MEAN CORPUSCULAR VOLUME 80 fL (80-100); MONOCYTES # (AUTO) 0.5 K/uL (0.1-1.0); MONOCYTES % (AUTO) 4.7 % (2.0-9.0); NEUTROPHILS # (AUTO) 6.5 K/uL (1.8-7.7); NEUTROPHILS % (AUTO) 66.3 % (40.0-70.0); PLATELET COUNT (AUTO) 331 K/uL (150-450); RED BLOOD CELL COUNT(AUTO) 4.86 MIL/uL (4.00-5.20); RED CELL DISTRIBUTION WIDTH 14.6 % (11.5-14.5); WHITE BLOOD COUNT (AUTO) 9.8 K/uL (4.5-11.0)
[2023-02-14 08:57] LABS: ALANINE AMINOTRANSFERASE 151 U/L (12-78); ALBUMIN 3.6 g/dL (3.4-5.0); ALKALINE PHOSPHATASE 127 U/L (46-116); ANION GAP 12 mmol/L (8-16); ASPARTATE AMINOTRANSFERASE 65 U/L (15-37); BILIRUBIN,TOTAL 0.2 mg/dL (0.1-1.0); CALCIUM, TOTAL 8.7 mg/dL (8.8-10.5); CARBON DIOXIDE 22 mmol/L (22-29); CHLORIDE 104 mmol/L (98-107); CREATININE 0.91 mg/dL (0.60-1.30); GLOMERULAR FILTR. RATE CALC > 60 mL/min (>60); GLUCOSE,RANDOM 135 mg/dL (70-110); POTASSIUM 4.2 mmol/L (3.5-5.1); SODIUM SERUM 138 mmol/L (136-145); TOTAL PROTEIN, SERUM 7.8 g/dL (6.4-8.2); UREA NITROGEN, BLOOD 15 mg/dL (7-18)
[2023-02-14 09:00] VITALS: BP 114/58; PULSE 74; RESP 18; TEMP 98.1
[2023-02-14] MEDS ORDERED: OLANZapine 5 MG RAPDIS TABLET PO PRN (10:15)
[2023-02-14] MEDS ORDERED: PALIPERIDONE PALMITATE 117 MG/0.75 ML SYRINGE IM ONE (11:00)
[2023-02-14 16:02] VITALS: BP 125/79; PULSE 95; RESP 19; TEMP 97.9
[2023-02-14 20:38] VITALS: BP 117/57; PULSE 98; RESP 19; TEMP 98.4
[2023-02-14] MEDS: MELATONIN 5 MG TABLET PO SCH (21:00)
[2023-02-14] MEDS: DIVALPROEX SODIUM 500 MG ER TABLET PO SCH (21:15)
[2023-02-14] MEDS: OLANZapine 5 MG RAPDIS TABLET PO SCH (21:15)
[2023-02-15 05:12] VITALS: BP 109/54; PULSE 68; RESP 18; TEMP 98.3
[2023-02-15 07:19] VITALS: BP 114/56; PULSE 86; RESP 18; TEMP 98.4
[2023-02-15] MEDS: NALTREXONE HCL 50 MG TABLET PO SCH (08:01)
[2023-02-15] MEDS: HEPARIN SODIUM,PORCINE 5,000 UNITS/ML VIAL SQ SCH ×2 (08:01→16:12)
[2023-02-15] MEDS: OMEGA-3/DHA/EPA/FISH OIL 1,000 MG CAPSULE PO SCH (08:01)
[2023-02-15 15:10] VITALS: BP 122/76; PULSE 90; RESP 19; TEMP 98.1
[2023-02-15 19:23] VITALS: BP 107/52; PULSE 97; RESP 18; TEMP 98.2
[2023-02-15] MEDS: MELATONIN 5 MG TABLET PO SCH (20:43)
[2023-02-15] MEDS: OLANZapine 5 MG RAPDIS TABLET PO SCH (20:43)
[2023-02-15] MEDS: DIVALPROEX SODIUM 500 MG ER TABLET PO SCH (20:43)
[2023-02-16] MEDS: HEPARIN SODIUM,PORCINE 5,000 UNITS/ML VIAL SQ SCH ×3 (00:22→16:31)
[2023-02-16 05:14] VITALS: BP 119/75; PULSE 82; RESP 19; TEMP 98.4
[2023-02-16 08:07] VITALS: BP 126/94; PULSE 90; RESP 20; TEMP 98.5
[2023-02-16] MEDS: NALTREXONE HCL 50 MG TABLET PO SCH (08:29)
[2023-02-16] MEDS: OMEGA-3/DHA/EPA/FISH OIL 1,000 MG CAPSULE PO SCH (08:29)
[2023-02-16 15:00] VITALS: BP 106/60; PULSE 75; RESP 20; TEMP 98.8
[2023-02-16 19:30] VITALS: BP 87/52; PULSE 83; RESP 18; TEMP 98.2
[2023-02-16] MEDS: MELATONIN 5 MG TABLET PO SCH (20:45)
[2023-02-16] MEDS: OLANZapine 5 MG RAPDIS TABLET PO SCH (20:46)
[2023-02-16 20:49] VITALS: BP 118/59; PULSE 90; RESP 17
[2023-02-16] MEDS: DIVALPROEX SODIUM 500 MG ER TABLET PO SCH (21:39)
[2023-02-17] MEDS: HEPARIN SODIUM,PORCINE 5,000 UNITS/ML VIAL SQ SCH ×2 (01:02→08:51)
[2023-02-17 04:00] VITALS: BP 117/62; PULSE 88; RESP 18; TEMP 98.3
[2023-02-17 06:17] VITALS: BP 135/67; PULSE 86; RESP 18; TEMP 98.5
[2023-02-17] MEDS: OMEGA-3/DHA/EPA/FISH OIL 1,000 MG CAPSULE PO SCH (08:53)
[2023-02-17] MEDS: NALTREXONE HCL 50 MG TABLET PO SCH (08:53)
[2023-02-17 14:57] VITALS: BP 96/48; PULSE 66; RESP 20; TEMP 99
[2023-03-14] MEDS ORDERED: PALIPERIDONE PALMITATE 117 MG/0.75 ML SYRINGE IM SCH (09:00)
== END 2023-02-17 17:55 | disposition home or self-care (01) | DRG 137 ==
LOC: EMS 15:17 → AHU 02-14 07:15 → 6N 02-14 08:02
PROVIDERS: ADMIT Hospitalist; ATTEND Hospitalist
DX: U07.1 COVID-19 (principal); F25.9 Schizoaffective disorder, unspecified; E66.01 Morbid (severe) obesity due to excess calories; F15.10 Other stimulant abuse, uncomplicated; N39.0 Urinary tract infection, site not specified; F32.A Depression, unspecified; F17.210 Nicotine dependence, cigarettes, uncomplicated; J45.909 Unspecified asthma, uncomplicated; Z88.6 Allergy status to analgesic agent; Z79.899 Other long term (current) drug therapy; Z68.42 Body mass index [BMI] 45.0-49.9, adult
CPT/HCPCS: 80053; 80307; 81001; 84702; 85025; 87086; 87186; 99285; G0480; J1644; Q9967

== ENCOUNTER 2023-02-22 12:32 | Inpatient (IN) | payer MEDICAID ==
[~2023-02-22] VITALS: Ht 170.2 cm; Wt 134.7 kg
[~2023-02-22 12:32] MED LIST changes: -CEPH-558 PO; +NALT50TA33 PO; -NALT50TA6 PO; +OLAN20TA35 PO; -PHEN-674 PO
[2023-02-22] MEDS ORDERED: LOPERAMIDE HCL 2 MG CAPSULE PO PRN (13:30)
[2023-02-22] MEDS ORDERED: HydrOXYzine PAMOATE 50 MG CAPSULE PO PRN (13:30)
[2023-02-22] MEDS ORDERED: LORazepam 2 MG TABLET PO PRN (13:30)
[2023-02-22] MEDS ORDERED: MAG HYDROX/ALUMINUM HYD/SIMETH ES 30 ML SUSPENSION UDCUP PO PRN (13:30)
[2023-02-22] MEDS ORDERED: ZOLPIDEM TARTRATE 10 MG TABLET PO PRN (13:30)
[2023-02-22] MEDS ORDERED: GuaiFENesin/D-METHORPHAN [SUGAR-FREE] 200-20MG/10 ML SYRUP UDCUP PO PRN (13:30)
[2023-02-22] MEDS ORDERED: ACET650S24 PR (15:25)
[2023-02-22 16:15] VITALS: BP 133/66; PULSE 83; RESP 18; TEMP 97.6; O2SAT 100
[2023-02-22] MEDS ORDERED: INFLUENZA VIRUS VACCINE QVS 2023-24 (6MO+)/PF 60 MCG/0.5 ML SYRINGE IM. ONE (16:30)
[2023-02-22] MEDS ORDERED: ALBUTEROL SULFATE HFA 90 MCG/PUFF 8 GM INHALER IH PRN (17:00)
[2023-02-22] MEDS: THIAMINE 100 MG TABLET PO SCH (18:46)
[2023-02-22] MEDS ORDERED: PALIPERIDONE PALMITATE 117 MG/0.75 ML SYRINGE IM ONE (20:00)
[2023-02-22] MEDS: MELATONIN 5 MG TABLET PO SCH (20:53)
[2023-02-22] MEDS: DIVALPROEX SODIUM 500 MG ER TABLET PO SCH (20:53)
[2023-02-22] MEDS: OLANZapine 5 MG RAPDIS TABLET PO SCH (20:53)
[2023-02-22 21:42] VITALS: BP 111/57; PULSE 83; RESP 18; TEMP 97.3; O2SAT 96
[2023-02-22] MEDS ORDERED: GLUCAGON,HUMAN RECOMBINANT 1 MG VIAL IM PRN (23:00)
[2023-02-23] MEDS: MetFORMIN HCL 500 MG TABLET PO SCH ×2 (06:54→16:29)
[2023-02-23] MEDS: INSULIN LISPRO 100 UNITS/ML SQ PRN ×2 (07:02→17:04)
[2023-02-23] MEDS: NALTREXONE HCL 50 MG TABLET PO SCH (09:25)
[2023-02-23] MEDS: MULTIVITAMINS WITH MINERALS, THERAPEUTIC TABLET PO SCH (09:25)
[2023-02-23] MEDS: OMEGA-3/DHA/EPA/FISH OIL 1,000 MG CAPSULE PO SCH (09:25)
[2023-02-23] MEDS: NICOTINE 14 MG/24 HOUR PATCH TD SCH (09:25)
[2023-02-23] MEDS: FOLIC ACID 1 MG TABLET PO SCH (09:26)
[2023-02-23] MEDS: THIAMINE 100 MG TABLET PO SCH ×2 (09:28→16:29)
[2023-02-23 17:06] LABS: GLUCOMETER DEV NAME(LOC) 3E.C; GLUCOSE,POINT OF CARE 158 MG/DL (70-110)
[2023-02-23 20:45] VITALS: BP 124/81; PULSE 76; RESP 18; TEMP 98.1; O2SAT 98
[2023-02-23] MEDS: DIVALPROEX SODIUM 500 MG ER TABLET PO SCH (21:06)
[2023-02-23] MEDS: OLANZapine 5 MG RAPDIS TABLET PO SCH (21:06)
[2023-02-23] MEDS: MELATONIN 5 MG TABLET PO SCH (21:06)
[2023-02-24 05:37] LABS: GLUCOMETER DEV NAME(LOC) 3E.C; GLUCOSE,POINT OF CARE 128 MG/DL (70-110)
[2023-02-24] MEDS: MetFORMIN HCL 500 MG TABLET PO SCH ×2 (06:34→16:57)
[2023-02-24 10:42] VITALS: BP 101/51; PULSE 72; RESP 18; TEMP 96.9; O2SAT 96
[2023-02-24] MEDS: THIAMINE 100 MG TABLET PO SCH ×2 (11:43→16:57)
[2023-02-24] MEDS: MULTIVITAMINS WITH MINERALS, THERAPEUTIC TABLET PO SCH (11:43)
[2023-02-24] MEDS: FOLIC ACID 1 MG TABLET PO SCH (11:44)
[2023-02-24] MEDS: NALTREXONE HCL 50 MG TABLET PO SCH (11:44)
[2023-02-24] MEDS: OMEGA-3/DHA/EPA/FISH OIL 1,000 MG CAPSULE PO SCH (11:44)
[2023-02-24] MEDS: NICOTINE 14 MG/24 HOUR PATCH TD SCH (11:46)
[2023-02-24] MEDS ORDERED: DEXTROSE 50%-WATER 25 GM/50 ML SYRINGE IVP PRN (17:00)
[2023-02-24 17:11] LABS: GLUCOMETER DEV NAME(LOC) 3E.C; GLUCOSE,POINT OF CARE 103 MG/DL (70-110)
[2023-02-24] MEDS ORDERED: ACET-2247 PO (17:22)
[2023-02-24] MEDS: MELATONIN 5 MG TABLET PO SCH (20:59)
[2023-02-24] MEDS: DIVALPROEX SODIUM 500 MG ER TABLET PO SCH (20:59)
[2023-02-24] MEDS: OLANZapine 10 MG RAPDIS TABLET PO SCH (21:00)
[2023-02-24 22:46] VITALS: BP 122/78; PULSE 78; RESP 18; TEMP 98; O2SAT 97
[2023-02-25 06:16] LABS: GLUCOMETER DEV NAME(LOC) 3E.C; GLUCOSE,POINT OF CARE 107 MG/DL (70-110)
[2023-02-25] MEDS: MetFORMIN HCL 500 MG TABLET PO SCH ×2 (07:00→16:25)
[2023-02-25] MEDS: INSULIN LISPRO 100 UNITS/ML SQ PRN (07:03)
[2023-02-25 08:57] VITALS: BP 106/59; PULSE 73; RESP 19; TEMP 98.1; O2SAT 95
[2023-02-25] MEDS: OMEGA-3/DHA/EPA/FISH OIL 1,000 MG CAPSULE PO SCH (08:57)
[2023-02-25] MEDS: FOLIC ACID 1 MG TABLET PO SCH (08:58)
[2023-02-25] MEDS: MULTIVITAMINS WITH MINERALS, THERAPEUTIC TABLET PO SCH (08:58)
[2023-02-25] MEDS: PARoxetine HCL 20 MG TABLET PO SCH (08:58)
[2023-02-25] MEDS: NALTREXONE HCL 50 MG TABLET PO SCH (08:58)
[2023-02-25] MEDS: THIAMINE 100 MG TABLET PO SCH ×2 (08:59→16:26)
[2023-02-25] MEDS: NICOTINE 14 MG/24 HOUR PATCH TD SCH ×2 (08:59→09:00)
[2023-02-25] MEDS ORDERED: PARoxetine HCL 20 MG TABLET PO SCH (09:00)
[2023-02-25 17:06] LABS: GLUCOMETER DEV NAME(LOC) 3E.C; GLUCOSE,POINT OF CARE 92 MG/DL (70-110)
[2023-02-25] MEDS: MELATONIN 5 MG TABLET PO SCH (20:50)
[2023-02-25] MEDS: DIVALPROEX SODIUM 500 MG ER TABLET PO SCH (20:51)
[2023-02-25] MEDS: OLANZapine 10 MG RAPDIS TABLET PO SCH (20:51)
[2023-02-25 21:09] VITALS: RESP 18
[2023-02-26 06:26] LABS: GLUCOMETER DEV NAME(LOC) 3E.C; GLUCOSE,POINT OF CARE 93 MG/DL (70-110)
[2023-02-26] MEDS: INSULIN LISPRO 100 UNITS/ML SQ PRN (06:32)
[2023-02-26] MEDS: MetFORMIN HCL 500 MG TABLET PO SCH ×2 (07:04→17:29)
[2023-02-26 08:00] VITALS: BP 118/75; PULSE 80; RESP 18; TEMP 98.4; O2SAT 95
[2023-02-26] MEDS: THIAMINE 100 MG TABLET PO SCH ×2 (09:49→17:29)
[2023-02-26] MEDS: MULTIVITAMINS WITH MINERALS, THERAPEUTIC TABLET PO SCH (09:49)
[2023-02-26] MEDS: NALTREXONE HCL 50 MG TABLET PO SCH (09:49)
[2023-02-26] MEDS: FOLIC ACID 1 MG TABLET PO SCH (09:49)
[2023-02-26] MEDS: OMEGA-3/DHA/EPA/FISH OIL 1,000 MG CAPSULE PO SCH (09:49)
[2023-02-26] MEDS: PARoxetine HCL 20 MG TABLET PO SCH (09:49)
[2023-02-26] MEDS: NICOTINE 14 MG/24 HOUR PATCH TD SCH (09:50)
[2023-02-26 17:36] LABS: GLUCOMETER DEV NAME(LOC) 3E.C; GLUCOSE,POINT OF CARE 96 MG/DL (70-110)
[2023-02-26 20:33] VITALS: BP 107/63; PULSE 86; RESP 18; TEMP 98; O2SAT 98
[2023-02-26] MEDS: DIVALPROEX SODIUM 500 MG ER TABLET PO SCH (20:50)
[2023-02-26] MEDS: MELATONIN 5 MG TABLET PO SCH (20:50)
[2023-02-26] MEDS: OLANZapine 10 MG RAPDIS TABLET PO SCH (20:50)
[2023-02-27] MEDS: MetFORMIN HCL 500 MG TABLET PO SCH ×2 (06:35→17:43)
[2023-02-27] MEDS: INSULIN LISPRO 100 UNITS/ML SQ PRN ×2 (06:36→18:04)
[2023-02-27 06:46] LABS: GLUCOMETER DEV NAME(LOC) 3E.C; GLUCOSE,POINT OF CARE 111 MG/DL (70-110)
[2023-02-27 08:42] VITALS: BP 128/57; PULSE 95; RESP 18; TEMP 97.5; O2SAT 100
[2023-02-27 08:56] LABS: GLUCOMETER DEV NAME(LOC) 3E.C; GLUCOSE,POINT OF CARE 178 MG/DL (70-110)
[2023-02-27] MEDS: FOLIC ACID 1 MG TABLET PO SCH (10:10)
[2023-02-27] MEDS: MULTIVITAMINS WITH MINERALS, THERAPEUTIC TABLET PO SCH (10:10)
[2023-02-27] MEDS: OMEGA-3/DHA/EPA/FISH OIL 1,000 MG CAPSULE PO SCH (10:10)
[2023-02-27] MEDS: NALTREXONE HCL 50 MG TABLET PO SCH (10:10)
[2023-02-27] MEDS: PARoxetine HCL 20 MG TABLET PO SCH (10:11)
[2023-02-27 10:56] LABS: GLUCOMETER DEV NAME(LOC) 3E.C; GLUCOSE,POINT OF CARE 119 MG/DL (70-110)
[2023-02-27] MEDS: THIAMINE 100 MG TABLET PO SCH ×2 (13:08→17:43)
[2023-02-27] MEDS: NICOTINE 14 MG/24 HOUR PATCH TD SCH (13:08)
[2023-02-27 17:57] LABS: GLUCOMETER DEV NAME(LOC) 3E.C; GLUCOSE,POINT OF CARE 118 MG/DL (70-110)
[2023-02-27] MEDS: DIVALPROEX SODIUM 500 MG ER TABLET PO SCH (20:41)
[2023-02-27] MEDS: MELATONIN 5 MG TABLET PO SCH (20:41)
[2023-02-27] MEDS: OLANZapine 10 MG RAPDIS TABLET PO SCH (20:47)
[2023-02-27 21:19] VITALS: RESP 18
[2023-02-27 21:20] VITALS: RESP 18; TEMP 98
[2023-02-28] MEDS: MetFORMIN HCL 500 MG TABLET PO SCH ×2 (06:23→16:33)
[2023-02-28] MEDS: INSULIN LISPRO 100 UNITS/ML SQ PRN (06:49)
[2023-02-28 07:05] LABS: GLUCOMETER DEV NAME(LOC) 3E.C; GLUCOSE,POINT OF CARE 103 MG/DL (70-110)
[2023-02-28 08:15] VITALS: BP 120/58; PULSE 92; RESP 18; TEMP 97.5; O2SAT 97
[2023-02-28] MEDS ORDERED: PARoxetine HCL 20 MG TABLET PO SCH (09:00)
[2023-02-28] MEDS: NICOTINE 14 MG/24 HOUR PATCH TD SCH (09:26)
[2023-02-28] MEDS: FOLIC ACID 1 MG TABLET PO SCH (09:26)
[2023-02-28] MEDS: OMEGA-3/DHA/EPA/FISH OIL 1,000 MG CAPSULE PO SCH (09:26)
[2023-02-28] MEDS: NALTREXONE HCL 50 MG TABLET PO SCH (09:26)
[2023-02-28] MEDS: MULTIVITAMINS WITH MINERALS, THERAPEUTIC TABLET PO SCH (09:26)
[2023-02-28] MEDS: THIAMINE 100 MG TABLET PO SCH ×2 (09:26→16:33)
[2023-02-28 16:45] LABS: GLUCOMETER DEV NAME(LOC) 3E.C; GLUCOSE,POINT OF CARE 116 MG/DL (70-110)
[2023-02-28 21:00] VITALS: BP 114/72; PULSE 74; RESP 18; TEMP 98; O2SAT 99
[2023-02-28] MEDS: MELATONIN 5 MG TABLET PO SCH (21:24)
[2023-02-28] MEDS: DIVALPROEX SODIUM 500 MG ER TABLET PO SCH (21:25)
[2023-02-28] MEDS: OLANZapine 10 MG RAPDIS TABLET PO SCH (21:26)
[2023-03-01 06:01] LABS: GLUCOMETER DEV NAME(LOC) 3E.C; GLUCOSE,POINT OF CARE 116 MG/DL (70-110)
[2023-03-01] MEDS: INSULIN LISPRO 100 UNITS/ML SQ PRN (06:44)
[2023-03-01] MEDS: MetFORMIN HCL 500 MG TABLET PO SCH ×2 (06:56→16:38)
[2023-03-01 08:30] VITALS: BP 142/99; PULSE 68; RESP 18; TEMP 98; O2SAT 99
[2023-03-01] MEDS ORDERED: PARoxetine HCL 20 MG TABLET PO SCH (09:00)
[2023-03-01] MEDS: NICOTINE 14 MG/24 HOUR PATCH TD SCH (09:57)
[2023-03-01] MEDS: OMEGA-3/DHA/EPA/FISH OIL 1,000 MG CAPSULE PO SCH (09:57)
[2023-03-01] MEDS: MULTIVITAMINS WITH MINERALS, THERAPEUTIC TABLET PO SCH (09:58)
[2023-03-01] MEDS: THIAMINE 100 MG TABLET PO SCH ×2 (09:59→16:38)
[2023-03-01] MEDS: FOLIC ACID 1 MG TABLET PO SCH (09:59)
[2023-03-01] MEDS: NALTREXONE HCL 50 MG TABLET PO SCH (09:59)
[2023-03-01 12:01] LABS: GLUCOMETER DEV NAME(LOC) 3E.C; GLUCOSE,POINT OF CARE 128 MG/DL (70-110)
[2023-03-01 17:31] LABS: GLUCOMETER DEV NAME(LOC) 3E.C; GLUCOSE,POINT OF CARE 100 MG/DL (70-110)
[2023-03-01 19:01] LABS: COVID AG,FIA SOURCE NASAL SWAB
[2023-03-01 19:22] LABS: SARS-COV2 (COVID) ANTIGEN,FIA Negative (Negative)
[2023-03-01] MEDS: DIVALPROEX SODIUM 500 MG ER TABLET PO SCH (20:55)
[2023-03-01] MEDS: OLANZapine 10 MG RAPDIS TABLET PO SCH (20:55)
[2023-03-01] MEDS: MELATONIN 5 MG TABLET PO SCH (20:56)
[2023-03-01 21:09] VITALS: BP 120/56; PULSE 70; RESP 18; TEMP 98.4; O2SAT 95
[2023-03-02 06:21] LABS: GLUCOMETER DEV NAME(LOC) 3E.C; GLUCOSE,POINT OF CARE 134 MG/DL (70-110)
[2023-03-02] MEDS: MetFORMIN HCL 500 MG TABLET PO SCH ×2 (06:56→16:37)
[2023-03-02] MEDS: INSULIN LISPRO 100 UNITS/ML SQ PRN ×2 (07:07→16:40)
[2023-03-02 08:00] VITALS: BP 104/62; PULSE 91; RESP 16; TEMP 98.3; O2SAT 97
[2023-03-02] MEDS: FOLIC ACID 1 MG TABLET PO SCH (08:27)
[2023-03-02] MEDS: THIAMINE 100 MG TABLET PO SCH ×2 (08:27→16:37)
[2023-03-02] MEDS: MULTIVITAMINS WITH MINERALS, THERAPEUTIC TABLET PO SCH (08:27)
[2023-03-02] MEDS: OMEGA-3/DHA/EPA/FISH OIL 1,000 MG CAPSULE PO SCH (08:27)
[2023-03-02] MEDS: PARoxetine HCL 20 MG TABLET PO SCH (08:28)
[2023-03-02] MEDS: NALTREXONE HCL 50 MG TABLET PO SCH (08:28)
[2023-03-02] MEDS: NICOTINE 14 MG/24 HOUR PATCH TD SCH (08:28)
[2023-03-02 15:19] LABS: HEMOGLOBIN A1C 7.3 % (3.8-5.6)
[2023-03-02 15:40] LABS: ALANINE AMINOTRANSFERASE 50 U/L (12-78); ALBUMIN 3.1 g/dL (3.4-5.0); ALKALINE PHOSPHATASE 101 U/L (46-116); ANION GAP 9 mmol/L (8-16); ASPARTATE AMINOTRANSFERASE 19 U/L (15-37); BILIRUBIN,TOTAL 0.2 mg/dL (0.1-1.0); CALCIUM, TOTAL 8.8 mg/dL (8.8-10.5); CARBON DIOXIDE 27 mmol/L (22-29); CHLORIDE 104 mmol/L (98-107); CREATININE 0.87 mg/dL (0.60-1.30); GLOMERULAR FILTR. RATE CALC > 60 mL/min (>60); GLUCOSE,RANDOM 155 mg/dL (70-110); POTASSIUM 3.9 mmol/L (3.5-5.1); SODIUM SERUM 140 mmol/L (136-145); UREA NITROGEN, BLOOD 10 mg/dL (7-18)
[2023-03-02 16:46] LABS: GLUCOMETER DEV NAME(LOC) 3E.C; GLUCOSE,POINT OF CARE 157 MG/DL (70-110)
[2023-03-02] MEDS: OLANZapine 10 MG RAPDIS TABLET PO SCH (20:01)
[2023-03-02] MEDS: MELATONIN 5 MG TABLET PO SCH (20:01)
[2023-03-02] MEDS: DIVALPROEX SODIUM 500 MG ER TABLET PO SCH (20:01)
[2023-03-02 20:30] VITALS: BP 125/74; PULSE 84; RESP 18; TEMP 98.5; O2SAT 97
[2023-03-03 06:21] LABS: GLUCOMETER DEV NAME(LOC) 3E.C; GLUCOSE,POINT OF CARE 120 MG/DL (70-110)
[2023-03-03] MEDS: MetFORMIN HCL 500 MG TABLET PO SCH ×2 (06:30→17:31)
[2023-03-03 07:21] LABS: CHOL/HDL RATIO 4.8 (3.9-5.7)
[2023-03-03] MEDS: MULTIVITAMINS WITH MINERALS, THERAPEUTIC TABLET PO SCH (09:56)
[2023-03-03] MEDS: THIAMINE 100 MG TABLET PO SCH ×2 (09:56→17:15)
[2023-03-03] MEDS: OMEGA-3/DHA/EPA/FISH OIL 1,000 MG CAPSULE PO SCH (09:56)
[2023-03-03] MEDS: PARoxetine HCL 20 MG TABLET PO SCH (09:56)
[2023-03-03] MEDS: FOLIC ACID 1 MG TABLET PO SCH (09:56)
[2023-03-03] MEDS: NALTREXONE HCL 50 MG TABLET PO SCH (09:57)
[2023-03-03] MEDS: MODAFINIL 100 MG TABLET PO SCH (09:57)
[2023-03-03] MEDS: NICOTINE 14 MG/24 HOUR PATCH TD SCH (09:58)
[2023-03-03 10:41] VITALS: BP 129/64; PULSE 89; RESP 19; TEMP 97.6; O2SAT 95
[2023-03-03 16:05] LABS: GLUCOMETER DEV NAME(LOC) 3E.C; GLUCOSE,POINT OF CARE 193 MG/DL (70-110)
[2023-03-03] MEDS ORDERED: GABAPENTIN 300 MG CAPSULE PO PRN (17:00)
[2023-03-03] MEDS ORDERED: ESZOPICLONE 3 MG TABLET PO PRN (17:00)
[2023-03-03] MEDS: INSULIN LISPRO 100 UNITS/ML SQ PRN (17:17)
[2023-03-03] MEDS: DIVALPROEX SODIUM 500 MG ER TABLET PO SCH (21:02)
[2023-03-03] MEDS: OLANZapine 10 MG RAPDIS TABLET PO SCH (21:02)
[2023-03-03] MEDS: MELATONIN 5 MG TABLET PO SCH (21:02)
[2023-03-03 21:25] VITALS: BP 133/60; PULSE 84; RESP 19; TEMP 98.9; O2SAT 98
[2023-03-04 06:42] LABS: GLUCOMETER DEV NAME(LOC) 3E.C; GLUCOSE,POINT OF CARE 164 MG/DL (70-110)
[2023-03-04] MEDS: MetFORMIN HCL 500 MG TABLET PO SCH ×2 (06:59→16:28)
[2023-03-04] MEDS: INSULIN LISPRO 100 UNITS/ML SQ PRN ×2 (07:06→16:31)
[2023-03-04 08:46] VITALS: BP 133/62; PULSE 74; RESP 18; TEMP 97.6; O2SAT 95
[2023-03-04] MEDS: FOLIC ACID 1 MG TABLET PO SCH (09:04)
[2023-03-04] MEDS: NICOTINE 14 MG/24 HOUR PATCH TD SCH (09:04)
[2023-03-04] MEDS: PARoxetine HCL 20 MG TABLET PO SCH (09:04)
[2023-03-04] MEDS: MODAFINIL 100 MG TABLET PO SCH (09:04)
[2023-03-04] MEDS: NALTREXONE HCL 50 MG TABLET PO SCH (09:04)
[2023-03-04] MEDS: MULTIVITAMINS WITH MINERALS, THERAPEUTIC TABLET PO SCH (09:04)
[2023-03-04] MEDS: THIAMINE 100 MG TABLET PO SCH (09:04)
[2023-03-04] MEDS: OMEGA-3/DHA/EPA/FISH OIL 1,000 MG CAPSULE PO SCH (09:05)
[2023-03-04 16:22] LABS: GLUCOMETER DEV NAME(LOC) 3E.C; GLUCOSE,POINT OF CARE 156 MG/DL (70-110)
[2023-03-04 21:40] VITALS: BP 116/70; PULSE 74; RESP 18; TEMP 97; O2SAT 96
[2023-03-04] MEDS: MELATONIN 5 MG TABLET PO SCH (21:42)
[2023-03-04] MEDS: OLANZapine 10 MG RAPDIS TABLET PO SCH (21:42)
[2023-03-04] MEDS: DIVALPROEX SODIUM 500 MG ER TABLET PO SCH (21:43)
[2023-03-05 06:06] LABS: GLUCOMETER DEV NAME(LOC) 3E.C; GLUCOSE,POINT OF CARE 192 MG/DL (70-110)
[2023-03-05] MEDS: INSULIN LISPRO 100 UNITS/ML SQ PRN ×2 (06:36→17:27)
[2023-03-05] MEDS: MetFORMIN HCL 500 MG TABLET PO SCH ×2 (06:51→16:14)
[2023-03-05 08:31] VITALS: BP 122/51; PULSE 66; RESP 18; TEMP 98.2; O2SAT 95
[2023-03-05] MEDS: OMEGA-3/DHA/EPA/FISH OIL 1,000 MG CAPSULE PO SCH (09:10)
[2023-03-05] MEDS: MULTIVITAMINS WITH MINERALS, THERAPEUTIC TABLET PO SCH (09:11)
[2023-03-05] MEDS: PARoxetine HCL 20 MG TABLET PO SCH (09:11)
[2023-03-05] MEDS: NALTREXONE HCL 50 MG TABLET PO SCH (09:11)
[2023-03-05] MEDS: MODAFINIL 100 MG TABLET PO SCH (09:11)
[2023-03-05] MEDS: NICOTINE 14 MG/24 HOUR PATCH TD SCH (09:12)
[2023-03-05 16:51] LABS: GLUCOMETER DEV NAME(LOC) 3E.C; GLUCOSE,POINT OF CARE 189 MG/DL (70-110)
[2023-03-05] MEDS: MELATONIN 5 MG TABLET PO SCH (21:09)
[2023-03-05] MEDS: DIVALPROEX SODIUM 500 MG ER TABLET PO SCH (21:09)
[2023-03-05] MEDS: OLANZapine 10 MG RAPDIS TABLET PO SCH (21:09)
[2023-03-05 21:13] VITALS: BP 134/84; PULSE 75; RESP 18; TEMP 97.7; O2SAT 98
[2023-03-06 06:36] LABS: GLUCOMETER DEV NAME(LOC) 3E.C; GLUCOSE,POINT OF CARE 202 MG/DL (70-110)
[2023-03-06] MEDS: INSULIN LISPRO 100 UNITS/ML SQ PRN ×2 (06:40→17:00)
[2023-03-06] MEDS: MetFORMIN HCL 500 MG TABLET PO SCH ×2 (07:08→17:00)
[2023-03-06] MEDS: NALTREXONE HCL 50 MG TABLET PO SCH (09:16)
[2023-03-06] MEDS: NICOTINE 14 MG/24 HOUR PATCH TD SCH (09:17)
[2023-03-06] MEDS: MULTIVITAMINS WITH MINERALS, THERAPEUTIC TABLET PO SCH (09:17)
[2023-03-06] MEDS: MODAFINIL 100 MG TABLET PO SCH (09:17)
[2023-03-06] MEDS: PARoxetine HCL 20 MG TABLET PO SCH (09:17)
[2023-03-06] MEDS: OMEGA-3/DHA/EPA/FISH OIL 1,000 MG CAPSULE PO SCH (09:17)
[2023-03-06 16:46] LABS: GLUCOMETER DEV NAME(LOC) 3E.C; GLUCOSE,POINT OF CARE 234 MG/DL (70-110)
[2023-03-06 17:21] VITALS: BP 94/54; PULSE 68; RESP 18; TEMP 97.7; O2SAT 95
[2023-03-06 20:23] VITALS: BP 109/51; PULSE 63; RESP 18; TEMP 97.1; O2SAT 97
[2023-03-06] MEDS: MELATONIN 5 MG TABLET PO SCH (20:45)
[2023-03-06] MEDS: DIVALPROEX SODIUM 500 MG ER TABLET PO SCH (20:46)
[2023-03-06] MEDS: OLANZapine 10 MG RAPDIS TABLET PO SCH (20:46)
[2023-03-07 05:41] LABS: GLUCOMETER DEV NAME(LOC) 3E.C; GLUCOSE,POINT OF CARE 192 MG/DL (70-110)
[2023-03-07] MEDS: INSULIN LISPRO 100 UNITS/ML SQ PRN ×2 (06:37→17:55)
[2023-03-07] MEDS: MetFORMIN HCL 500 MG TABLET PO SCH ×2 (06:41→17:41)
[2023-03-07 08:38] VITALS: RESP 18; TEMP 97.5
[2023-03-07] MEDS: OMEGA-3/DHA/EPA/FISH OIL 1,000 MG CAPSULE PO SCH (08:41)
[2023-03-07] MEDS: PARoxetine HCL 20 MG TABLET PO SCH (08:44)
[2023-03-07] MEDS: NALTREXONE HCL 50 MG TABLET PO SCH (08:44)
[2023-03-07] MEDS: MULTIVITAMINS WITH MINERALS, THERAPEUTIC TABLET PO SCH (08:44)
[2023-03-07] MEDS: NICOTINE 14 MG/24 HOUR PATCH TD SCH (08:46)
[2023-03-07] MEDS ORDERED: MODAFINIL 100 MG TABLET PO SCH (09:00)
[2023-03-07 16:46] LABS: GLUCOMETER DEV NAME(LOC) 3E.C; GLUCOSE,POINT OF CARE 207 MG/DL (70-110)
[2023-03-07] MEDS: MAGNESIUM HYDROXIDE SUSPENSION 30 ML UDCUP PO PRN (18:00)
[2023-03-07 21:01] VITALS: BP 107/63; PULSE 74; RESP 18; TEMP 98.9; O2SAT 95
[2023-03-07] MEDS: MELATONIN 5 MG TABLET PO SCH (21:19)
[2023-03-07] MEDS: OLANZapine 10 MG RAPDIS TABLET PO SCH (21:19)
[2023-03-07] MEDS: DIVALPROEX SODIUM 500 MG ER TABLET PO SCH (21:20)
[2023-03-08 06:36] LABS: GLUCOMETER DEV NAME(LOC) 3E.C; GLUCOSE,POINT OF CARE 233 MG/DL (70-110)
[2023-03-08] MEDS: INSULIN LISPRO 100 UNITS/ML SQ PRN ×2 (06:36→17:00)
[2023-03-08] MEDS: MetFORMIN HCL 500 MG TABLET PO SCH ×2 (07:01→16:59)
[2023-03-08] MEDS: MODAFINIL 100 MG TABLET PO SCH (08:40)
[2023-03-08] MEDS: NICOTINE 14 MG/24 HOUR PATCH TD SCH ×2 (08:40→09:00)
[2023-03-08] MEDS: MULTIVITAMINS WITH MINERALS, THERAPEUTIC TABLET PO SCH (08:40)
[2023-03-08] MEDS: OMEGA-3/DHA/EPA/FISH OIL 1,000 MG CAPSULE PO SCH (08:40)
[2023-03-08] MEDS: NALTREXONE HCL 50 MG TABLET PO SCH (08:41)
[2023-03-08] MEDS: PARoxetine HCL 20 MG TABLET PO SCH (08:41)
[2023-03-08 09:00] VITALS: BP 117/66; PULSE 79; RESP 18; TEMP 96.8; O2SAT 95
[2023-03-08 16:42] LABS: GLUCOMETER DEV NAME(LOC) 3E.C; GLUCOSE,POINT OF CARE 204 MG/DL (70-110)
[2023-03-08] MEDS: BusPIRone HCL 10 MG TABLET PO SCH (16:59)
[2023-03-08] MEDS: DIVALPROEX SODIUM 500 MG ER TABLET PO SCH (20:38)
[2023-03-08] MEDS: OLANZapine 10 MG RAPDIS TABLET PO SCH (20:38)
[2023-03-08] MEDS: MELATONIN 5 MG TABLET PO SCH (20:38)
[2023-03-08 22:03] VITALS: BP 129/86; PULSE 85; RESP 18; TEMP 96.8; O2SAT 97
[2023-03-09 06:01] LABS: GLUCOMETER DEV NAME(LOC) 3E.C; GLUCOSE,POINT OF CARE 245 MG/DL (70-110)
[2023-03-09] MEDS: MetFORMIN HCL 500 MG TABLET PO SCH ×2 (06:30→16:33)
[2023-03-09] MEDS: INSULIN LISPRO 100 UNITS/ML SQ PRN ×2 (06:31→17:47)
[2023-03-09] MEDS: NICOTINE 14 MG/24 HOUR PATCH TD SCH (09:00)
[2023-03-09] MEDS: OMEGA-3/DHA/EPA/FISH OIL 1,000 MG CAPSULE PO SCH (09:09)
[2023-03-09] MEDS: PARoxetine HCL 20 MG TABLET PO SCH (09:10)
[2023-03-09] MEDS: BusPIRone HCL 10 MG TABLET PO SCH ×2 (09:10→16:33)
[2023-03-09] MEDS: MODAFINIL 100 MG TABLET PO SCH (09:10)
[2023-03-09] MEDS: MULTIVITAMINS WITH MINERALS, THERAPEUTIC TABLET PO SCH (09:10)
[2023-03-09] MEDS: NALTREXONE HCL 50 MG TABLET PO SCH (09:10)
[2023-03-09 09:44] VITALS: BP 102/51; PULSE 71; RESP 18; TEMP 97.2
[2023-03-09 17:21] LABS: GLUCOMETER DEV NAME(LOC) 3E.C; GLUCOSE,POINT OF CARE 245 MG/DL (70-110)
[2023-03-09 18:03] VITALS: BP 118/60; PULSE 78; RESP 18; TEMP 98; O2SAT 98
[2023-03-09] MEDS: ACETAMINOPHEN 325 MG TABLET PO PRN (18:03)
[2023-03-09] MEDS: MELATONIN 5 MG TABLET PO SCH (20:56)
[2023-03-09] MEDS: OLANZapine 10 MG RAPDIS TABLET PO SCH (20:56)
[2023-03-09] MEDS: DIVALPROEX SODIUM 500 MG ER TABLET PO SCH (20:56)
[2023-03-09] MEDS: MAGNESIUM HYDROXIDE SUSPENSION 30 ML UDCUP PO PRN (21:43)
[2023-03-09 21:46] VITALS: BP 137/83; PULSE 74; RESP 18; TEMP 97; O2SAT 97
[2023-03-10 06:02] LABS: GLUCOMETER DEV NAME(LOC) 3E.C; GLUCOSE,POINT OF CARE 147 MG/DL (70-110)
[2023-03-10] MEDS: MetFORMIN HCL 500 MG TABLET PO SCH ×2 (06:31→17:59)
[2023-03-10] MEDS: INSULIN LISPRO 100 UNITS/ML SQ PRN ×2 (06:32→16:25)
[2023-03-10] MEDS: MULTIVITAMINS WITH MINERALS, THERAPEUTIC TABLET PO SCH (08:19)
[2023-03-10] MEDS: BusPIRone HCL 10 MG TABLET PO SCH ×2 (08:19→16:23)
[2023-03-10] MEDS: NALTREXONE HCL 50 MG TABLET PO SCH (08:19)
[2023-03-10] MEDS: PARoxetine HCL 20 MG TABLET PO SCH (08:19)
[2023-03-10] MEDS: MODAFINIL 100 MG TABLET PO SCH (08:19)
[2023-03-10] MEDS: OMEGA-3/DHA/EPA/FISH OIL 1,000 MG CAPSULE PO SCH (08:19)
[2023-03-10] MEDS: NICOTINE 14 MG/24 HOUR PATCH TD SCH (08:23)
[2023-03-10 09:17] VITALS: BP 113/65; PULSE 74; RESP 18; TEMP 97.8; O2SAT 96
[2023-03-10 16:36] LABS: GLUCOMETER DEV NAME(LOC) 3E.C; GLUCOSE,POINT OF CARE 276 MG/DL (70-110)
[2023-03-10] MEDS: DIVALPROEX SODIUM 500 MG ER TABLET PO SCH (20:38)
[2023-03-10] MEDS: OLANZapine 10 MG RAPDIS TABLET PO SCH (20:38)
[2023-03-10] MEDS: MELATONIN 5 MG TABLET PO SCH (20:38)
[2023-03-10] MEDS: MAGNESIUM HYDROXIDE SUSPENSION 30 ML UDCUP PO PRN (20:45)
[2023-03-10 20:54] VITALS: BP 123/72; PULSE 80; RESP 18; TEMP 97.3; O2SAT 96
[2023-03-11 06:26] LABS: GLUCOMETER DEV NAME(LOC) 3E.C; GLUCOSE,POINT OF CARE 184 MG/DL (70-110)
[2023-03-11] MEDS: MetFORMIN HCL 500 MG TABLET PO SCH ×2 (06:50→17:00)
[2023-03-11] MEDS: INSULIN LISPRO 100 UNITS/ML SQ PRN ×2 (06:55→17:01)
[2023-03-11] MEDS: PARoxetine HCL 20 MG TABLET PO SCH (08:22)
[2023-03-11] MEDS: MODAFINIL 100 MG TABLET PO SCH (08:22)
[2023-03-11] MEDS: NICOTINE 14 MG/24 HOUR PATCH TD SCH (08:22)
[2023-03-11] MEDS: MULTIVITAMINS WITH MINERALS, THERAPEUTIC TABLET PO SCH (08:23)
[2023-03-11] MEDS: BusPIRone HCL 10 MG TABLET PO SCH ×2 (08:23→17:00)
[2023-03-11] MEDS: OMEGA-3/DHA/EPA/FISH OIL 1,000 MG CAPSULE PO SCH (08:23)
[2023-03-11] MEDS: NALTREXONE HCL 50 MG TABLET PO SCH (08:23)
[2023-03-11 09:31] VITALS: BP 127/72; PULSE 66; RESP 17; TEMP 98.2; O2SAT 97
[2023-03-11 16:26] LABS: GLUCOMETER DEV NAME(LOC) 3E.C; GLUCOSE,POINT OF CARE 247 MG/DL (70-110)
[2023-03-11] MEDS: DIVALPROEX SODIUM 500 MG ER TABLET PO SCH (20:01)
[2023-03-11] MEDS: OLANZapine 10 MG RAPDIS TABLET PO SCH (20:01)
[2023-03-11] MEDS: MELATONIN 5 MG TABLET PO SCH (20:01)
[2023-03-11] MEDS: OLANZapine 5 MG RAPDIS TABLET PO PRN (21:17)
[2023-03-11 21:49] VITALS: BP 144/75; PULSE 86; RESP 18; TEMP 97.9; O2SAT 96
[2023-03-12 05:41] LABS: GLUCOMETER DEV NAME(LOC) 3E.C; GLUCOSE,POINT OF CARE 257 MG/DL (70-110)
[2023-03-12] MEDS: INSULIN LISPRO 100 UNITS/ML SQ PRN ×2 (06:31→17:28)
[2023-03-12] MEDS: MetFORMIN HCL 500 MG TABLET PO SCH ×2 (06:31→16:56)
[2023-03-12 09:38] VITALS: BP 98/52; PULSE 70; TEMP 97.4
[2023-03-12] MEDS: NALTREXONE HCL 50 MG TABLET PO SCH (10:21)
[2023-03-12] MEDS: MODAFINIL 100 MG TABLET PO SCH (10:21)
[2023-03-12] MEDS: BusPIRone HCL 10 MG TABLET PO SCH ×2 (10:21→16:55)
[2023-03-12] MEDS: OMEGA-3/DHA/EPA/FISH OIL 1,000 MG CAPSULE PO SCH (10:22)
[2023-03-12] MEDS: MULTIVITAMINS WITH MINERALS, THERAPEUTIC TABLET PO SCH (10:22)
[2023-03-12] MEDS: PARoxetine HCL 20 MG TABLET PO SCH (10:22)
[2023-03-12] MEDS: NICOTINE 14 MG/24 HOUR PATCH TD SCH (10:24)
[2023-03-12 17:16] VITALS: BP 110/65; PULSE 80; RESP 20; TEMP 97.8; O2SAT 96
[2023-03-12] MEDS: ACETAMINOPHEN 325 MG TABLET PO PRN (17:16)
[2023-03-12 17:27] LABS: GLUCOMETER DEV NAME(LOC) 3E.C; GLUCOSE,POINT OF CARE 232 MG/DL (70-110)
[2023-03-12 21:02] VITALS: BP 141/87; PULSE 83; RESP 18; TEMP 98.1; O2SAT 96
[2023-03-12] MEDS: OLANZapine 10 MG RAPDIS TABLET PO SCH (21:10)
[2023-03-12] MEDS: DIVALPROEX SODIUM 500 MG ER TABLET PO SCH (21:10)
[2023-03-12] MEDS: MELATONIN 5 MG TABLET PO SCH (21:10)
[2023-03-13 06:06] LABS: GLUCOMETER DEV NAME(LOC) 3E.C; GLUCOSE,POINT OF CARE 181 MG/DL (70-110)
[2023-03-13] MEDS: MetFORMIN HCL 500 MG TABLET PO SCH ×2 (06:31→17:31)
[2023-03-13] MEDS: INSULIN LISPRO 100 UNITS/ML SQ PRN ×3 (06:31→21:18)
[2023-03-13 08:52] VITALS: BP 150/90; PULSE 85; RESP 18; TEMP 97.6; O2SAT 98
[2023-03-13] MEDS: NALTREXONE HCL 50 MG TABLET PO SCH (09:41)
[2023-03-13] MEDS: MULTIVITAMINS WITH MINERALS, THERAPEUTIC TABLET PO SCH (09:41)
[2023-03-13] MEDS: OMEGA-3/DHA/EPA/FISH OIL 1,000 MG CAPSULE PO SCH (09:41)
[2023-03-13] MEDS: PARoxetine HCL 20 MG TABLET PO SCH (09:41)
[2023-03-13] MEDS: MODAFINIL 100 MG TABLET PO SCH (09:42)
[2023-03-13] MEDS: NICOTINE 14 MG/24 HOUR PATCH TD SCH (09:42)
[2023-03-13] MEDS: BusPIRone HCL 10 MG TABLET PO SCH ×2 (09:42→17:31)
[2023-03-13 16:31] LABS: GLUCOMETER DEV NAME(LOC) 3E.C; GLUCOSE,POINT OF CARE 228 MG/DL (70-110)
[2023-03-13 20:00] VITALS: BP 144/90; PULSE 93; RESP 20; TEMP 97.1; O2SAT 97
[2023-03-13 20:36] LABS: GLUCOMETER DEV NAME(LOC) 3E.C; GLUCOSE,POINT OF CARE 308 MG/DL (70-110)
[2023-03-13] MEDS: OLANZapine 10 MG RAPDIS TABLET PO SCH (21:08)
[2023-03-13] MEDS: MELATONIN 5 MG TABLET PO SCH (21:08)
[2023-03-13] MEDS: DIVALPROEX SODIUM 500 MG ER TABLET PO SCH (21:08)
[2023-03-14 06:21] LABS: GLUCOMETER DEV NAME(LOC) 3E.C; GLUCOSE,POINT OF CARE 172 MG/DL (70-110)
[2023-03-14] MEDS: INSULIN LISPRO 100 UNITS/ML SQ PRN ×4 (06:35→21:28)
[2023-03-14] MEDS: MetFORMIN HCL 500 MG TABLET PO SCH ×2 (06:51→16:20)
[2023-03-14 08:35] VITALS: BP_SYST 97; BP_DIAS 46; BP_DIAS 59; PULSE 70; RESP 18; TEMP 97.9; O2SAT 97
[2023-03-14] MEDS: OMEGA-3/DHA/EPA/FISH OIL 1,000 MG CAPSULE PO SCH (09:21)
[2023-03-14] MEDS: NALTREXONE HCL 50 MG TABLET PO SCH (09:21)
[2023-03-14] MEDS: PARoxetine HCL 20 MG TABLET PO SCH (09:22)
[2023-03-14] MEDS: NICOTINE 14 MG/24 HOUR PATCH TD SCH (09:22)
[2023-03-14] MEDS: BusPIRone HCL 10 MG TABLET PO SCH ×2 (09:22→16:20)
[2023-03-14] MEDS: MODAFINIL 100 MG TABLET PO SCH (09:22)
[2023-03-14] MEDS: MULTIVITAMINS WITH MINERALS, THERAPEUTIC TABLET PO SCH (09:22)
[2023-03-14 16:31] LABS: GLUCOMETER DEV NAME(LOC) 3E.C; GLUCOSE,POINT OF CARE 225 MG/DL (70-110)
[2023-03-14 20:25] LABS: GLUCOMETER DEV NAME(LOC) 3E.C; GLUCOSE,POINT OF CARE 245 MG/DL (70-110)
[2023-03-14 20:46] VITALS: BP 118/64; PULSE 82; RESP 18; TEMP 97.3; O2SAT 97
[2023-03-14] MEDS: MELATONIN 5 MG TABLET PO SCH (20:52)
[2023-03-14] MEDS: DIVALPROEX SODIUM 500 MG ER TABLET PO SCH (20:52)
[2023-03-14] MEDS: OLANZapine 10 MG RAPDIS TABLET PO SCH (20:53)
[2023-03-15 06:26] LABS: GLUCOMETER DEV NAME(LOC) 3E.C; GLUCOSE,POINT OF CARE 188 MG/DL (70-110)
[2023-03-15] MEDS: MetFORMIN HCL 500 MG TABLET PO SCH ×2 (07:02→16:27)
[2023-03-15] MEDS: INSULIN LISPRO 100 UNITS/ML SQ PRN ×2 (07:13→17:45)
[2023-03-15 08:00] VITALS: BP 105/57; PULSE 80; RESP 17; TEMP 98.5; O2SAT 99
[2023-03-15] MEDS: PARoxetine HCL 20 MG TABLET PO SCH (08:52)
[2023-03-15] MEDS: BusPIRone HCL 10 MG TABLET PO SCH ×2 (08:52→16:28)
[2023-03-15] MEDS: MULTIVITAMINS WITH MINERALS, THERAPEUTIC TABLET PO SCH (08:52)
[2023-03-15] MEDS: NALTREXONE HCL 50 MG TABLET PO SCH (08:52)
[2023-03-15] MEDS: MODAFINIL 100 MG TABLET PO SCH (08:52)
[2023-03-15] MEDS: NICOTINE 14 MG/24 HOUR PATCH TD SCH (08:53)
[2023-03-15] MEDS: OMEGA-3/DHA/EPA/FISH OIL 1,000 MG CAPSULE PO SCH (08:54)
[2023-03-15 16:41] LABS: GLUCOMETER DEV NAME(LOC) 3E.C; GLUCOSE,POINT OF CARE 217 MG/DL (70-110)
[2023-03-15] MEDS: MELATONIN 5 MG TABLET PO SCH (20:55)
[2023-03-15] MEDS: OLANZapine 10 MG RAPDIS TABLET PO SCH (20:55)
[2023-03-15] MEDS: DIVALPROEX SODIUM 500 MG ER TABLET PO SCH (20:55)
[2023-03-15 21:14] VITALS: BP 149/83; PULSE 71; RESP 18; TEMP 97.1; O2SAT 98
[2023-03-16 06:56] LABS: GLUCOMETER DEV NAME(LOC) 3E.C; GLUCOSE,POINT OF CARE 156 MG/DL (70-110)
[2023-03-16] MEDS: MetFORMIN HCL 500 MG TABLET PO SCH ×2 (07:00→17:38)
[2023-03-16] MEDS: INSULIN LISPRO 100 UNITS/ML SQ PRN ×2 (07:03→16:53)
[2023-03-16] MEDS: NICOTINE 14 MG/24 HOUR PATCH TD SCH (09:00)
[2023-03-16] MEDS: BusPIRone HCL 10 MG TABLET PO SCH ×2 (09:19→16:53)
[2023-03-16] MEDS: PARoxetine HCL 20 MG TABLET PO SCH (09:19)
[2023-03-16] MEDS: NALTREXONE HCL 50 MG TABLET PO SCH (09:20)
[2023-03-16] MEDS: MODAFINIL 100 MG TABLET PO SCH (09:20)
[2023-03-16] MEDS: OMEGA-3/DHA/EPA/FISH OIL 1,000 MG CAPSULE PO SCH (09:20)
[2023-03-16] MEDS: MULTIVITAMINS WITH MINERALS, THERAPEUTIC TABLET PO SCH (09:20)
[2023-03-16 10:10] VITALS: BP 113/62; PULSE 79; RESP 18; TEMP 98.1; O2SAT 95
[2023-03-16 16:47] LABS: GLUCOMETER DEV NAME(LOC) 3E.C; GLUCOSE,POINT OF CARE 151 MG/DL (70-110)
[2023-03-16 20:55] VITALS: BP 135/61; PULSE 86; RESP 19; TEMP 98; O2SAT 96
[2023-03-16] MEDS: DIVALPROEX SODIUM 500 MG ER TABLET PO SCH (21:28)
[2023-03-16] MEDS: MELATONIN 5 MG TABLET PO SCH (21:28)
[2023-03-16] MEDS: OLANZapine 10 MG RAPDIS TABLET PO SCH (21:29)
[2023-03-17 05:41] LABS: GLUCOMETER DEV NAME(LOC) 3E.C; GLUCOSE,POINT OF CARE 215 MG/DL (70-110)
[2023-03-17] MEDS: MetFORMIN HCL 500 MG TABLET PO SCH ×2 (06:32→17:26)
[2023-03-17] MEDS: INSULIN LISPRO 100 UNITS/ML SQ PRN ×2 (06:34→17:29)
[2023-03-17 08:45] VITALS: BP 104/62; PULSE 65; RESP 18; TEMP 97.5; O2SAT 97
[2023-03-17] MEDS: NICOTINE 14 MG/24 HOUR PATCH TD SCH (09:29)
[2023-03-17] MEDS: MULTIVITAMINS WITH MINERALS, THERAPEUTIC TABLET PO SCH (09:30)
[2023-03-17] MEDS: NALTREXONE HCL 50 MG TABLET PO SCH (09:30)
[2023-03-17] MEDS: MODAFINIL 100 MG TABLET PO SCH (09:30)
[2023-03-17] MEDS: PARoxetine HCL 20 MG TABLET PO SCH (09:30)
[2023-03-17] MEDS: OMEGA-3/DHA/EPA/FISH OIL 1,000 MG CAPSULE PO SCH (09:30)
[2023-03-17] MEDS: BusPIRone HCL 10 MG TABLET PO SCH ×2 (09:36→17:27)
[2023-03-17 16:11] LABS: GLUCOMETER DEV NAME(LOC) 3E.C; GLUCOSE,POINT OF CARE 286 MG/DL (70-110)
[2023-03-17] MEDS: OLANZapine 10 MG RAPDIS TABLET PO SCH (21:03)
[2023-03-17] MEDS: MELATONIN 5 MG TABLET PO SCH (21:03)
[2023-03-17] MEDS: DIVALPROEX SODIUM 500 MG ER TABLET PO SCH (21:03)
[2023-03-17 21:17] VITALS: BP 115/66; PULSE 85; RESP 19; TEMP 98.1; O2SAT 98
[2023-03-17 21:51] VITALS: BP 115/66; PULSE 80; RESP 19; TEMP 98.1; O2SAT 97
[2023-03-18 06:36] LABS: GLUCOMETER DEV NAME(LOC) 3E.C; GLUCOSE,POINT OF CARE 194 MG/DL (70-110)
[2023-03-18] MEDS: MetFORMIN HCL 500 MG TABLET PO SCH ×2 (06:56→16:52)
[2023-03-18] MEDS: INSULIN LISPRO 100 UNITS/ML SQ PRN ×2 (07:06→17:24)
[2023-03-18 09:14] VITALS: BP 120/56; PULSE 81; RESP 18; TEMP 98.4; O2SAT 97
[2023-03-18] MEDS: NALTREXONE HCL 50 MG TABLET PO SCH (09:21)
[2023-03-18] MEDS: PARoxetine HCL 20 MG TABLET PO SCH (09:21)
[2023-03-18] MEDS: BusPIRone HCL 10 MG TABLET PO SCH ×2 (09:21→16:52)
[2023-03-18] MEDS: MULTIVITAMINS WITH MINERALS, THERAPEUTIC TABLET PO SCH (09:21)
[2023-03-18] MEDS: MODAFINIL 100 MG TABLET PO SCH (09:21)
[2023-03-18] MEDS: OMEGA-3/DHA/EPA/FISH OIL 1,000 MG CAPSULE PO SCH (09:22)
[2023-03-18] MEDS: NICOTINE 14 MG/24 HOUR PATCH TD SCH (09:22)
[2023-03-18 17:26] LABS: GLUCOMETER DEV NAME(LOC) 3E.C; GLUCOSE,POINT OF CARE 198 MG/DL (70-110)
[2023-03-18 20:15] VITALS: BP 116/52; PULSE 71; RESP 18; TEMP 97.8; O2SAT 96
[2023-03-18] MEDS: MELATONIN 5 MG TABLET PO SCH (20:37)
[2023-03-18] MEDS: OLANZapine 10 MG RAPDIS TABLET PO SCH (20:37)
[2023-03-18] MEDS: DIVALPROEX SODIUM 500 MG ER TABLET PO SCH (20:37)
[2023-03-18 22:39] VITALS: BP 116/65; PULSE 71; RESP 18; TEMP 97.8; O2SAT 95
[2023-03-19] MEDS: OLANZapine 5 MG RAPDIS TABLET PO PRN (03:24)
[2023-03-19 06:22] LABS: GLUCOMETER DEV NAME(LOC) 3E.C; GLUCOSE,POINT OF CARE 208 MG/DL (70-110)
[2023-03-19] MEDS: INSULIN LISPRO 100 UNITS/ML SQ PRN ×2 (07:00→17:30)
[2023-03-19] MEDS: MetFORMIN HCL 500 MG TABLET PO SCH ×2 (07:00→16:42)
[2023-03-19] MEDS: NICOTINE 14 MG/24 HOUR PATCH TD SCH (09:00)
[2023-03-19] MEDS: OMEGA-3/DHA/EPA/FISH OIL 1,000 MG CAPSULE PO SCH (09:08)
[2023-03-19] MEDS: MULTIVITAMINS WITH MINERALS, THERAPEUTIC TABLET PO SCH (09:08)
[2023-03-19] MEDS: PARoxetine HCL 20 MG TABLET PO SCH (09:09)
[2023-03-19] MEDS: NALTREXONE HCL 50 MG TABLET PO SCH (09:09)
[2023-03-19] MEDS: BusPIRone HCL 10 MG TABLET PO SCH ×2 (09:10→17:32)
[2023-03-19] MEDS: MODAFINIL 100 MG TABLET PO SCH (09:10)
[2023-03-19 17:01] LABS: GLUCOMETER DEV NAME(LOC) 3E.C; GLUCOSE,POINT OF CARE 204 MG/DL (70-110)
[2023-03-19 20:42] VITALS: BP 113/64; PULSE 77; RESP 19; TEMP 97.5; O2SAT 96
[2023-03-19] MEDS: MELATONIN 5 MG TABLET PO SCH (20:57)
[2023-03-19] MEDS: DIVALPROEX SODIUM 500 MG ER TABLET PO SCH (20:57)
[2023-03-19] MEDS: OLANZapine 10 MG RAPDIS TABLET PO SCH (20:57)
[2023-03-20] MEDS: MetFORMIN HCL 500 MG TABLET PO SCH ×2 (06:37→17:28)
[2023-03-20] MEDS: INSULIN LISPRO 100 UNITS/ML SQ PRN ×2 (06:45→17:32)
[2023-03-20 06:51] LABS: GLUCOMETER DEV NAME(LOC) 3E.C; GLUCOSE,POINT OF CARE 193 MG/DL (70-110)
[2023-03-20 08:57] VITALS: RESP 18; TEMP 97.8
[2023-03-20] MEDS: NICOTINE 14 MG/24 HOUR PATCH TD SCH (09:00)
[2023-03-20] MEDS: BusPIRone HCL 10 MG TABLET PO SCH ×2 (09:50→17:28)
[2023-03-20] MEDS: MODAFINIL 100 MG TABLET PO SCH (09:50)
[2023-03-20] MEDS: NALTREXONE HCL 50 MG TABLET PO SCH (09:50)
[2023-03-20] MEDS: MULTIVITAMINS WITH MINERALS, THERAPEUTIC TABLET PO SCH (09:50)
[2023-03-20] MEDS: OMEGA-3/DHA/EPA/FISH OIL 1,000 MG CAPSULE PO SCH (09:51)
[2023-03-20] MEDS: PARoxetine HCL 20 MG TABLET PO SCH (09:51)
[2023-03-20 16:21] LABS: GLUCOMETER DEV NAME(LOC) 3E.C; GLUCOSE,POINT OF CARE 229 MG/DL (70-110)
[2023-03-20] MEDS: DIVALPROEX SODIUM 500 MG ER TABLET PO SCH (21:00)
[2023-03-20] MEDS: OLANZapine 10 MG RAPDIS TABLET PO SCH (21:01)
[2023-03-20] MEDS: MELATONIN 5 MG TABLET PO SCH (21:01)
[2023-03-20 21:05] VITALS: BP 119/80; PULSE 84; RESP 18; TEMP 97.5; O2SAT 97
[2023-03-21 06:36] LABS: GLUCOMETER DEV NAME(LOC) 3E.C; GLUCOSE,POINT OF CARE 189 MG/DL (70-110)
[2023-03-21] MEDS: INSULIN LISPRO 100 UNITS/ML SQ PRN ×2 (06:38→17:23)
[2023-03-21] MEDS: MetFORMIN HCL 500 MG TABLET PO SCH ×2 (06:58→16:42)
[2023-03-21] MEDS: NICOTINE 14 MG/24 HOUR PATCH TD SCH (09:00)
[2023-03-21 09:25] VITALS: BP 107/58; PULSE 73; RESP 17; TEMP 97.1; O2SAT 98
[2023-03-21] MEDS: MODAFINIL 100 MG TABLET PO SCH (10:32)
[2023-03-21] MEDS: OMEGA-3/DHA/EPA/FISH OIL 1,000 MG CAPSULE PO SCH (10:34)
[2023-03-21] MEDS: MULTIVITAMINS WITH MINERALS, THERAPEUTIC TABLET PO SCH (10:34)
[2023-03-21] MEDS: PARoxetine HCL 20 MG TABLET PO SCH (10:34)
[2023-03-21] MEDS: NALTREXONE HCL 50 MG TABLET PO SCH (10:34)
[2023-03-21] MEDS: BusPIRone HCL 10 MG TABLET PO SCH (10:35)
[2023-03-21] MEDS ORDERED: BusPIRone HCL 10 MG TABLET PO SCH (17:00)
[2023-03-21 17:01] LABS: GLUCOMETER DEV NAME(LOC) 3E.C; GLUCOSE,POINT OF CARE 205 MG/DL (70-110)
[2023-03-21] MEDS: DIVALPROEX SODIUM 500 MG ER TABLET PO SCH (21:17)
[2023-03-21] MEDS: OLANZapine 10 MG RAPDIS TABLET PO SCH (21:18)
[2023-03-21] MEDS: MELATONIN 5 MG TABLET PO SCH (21:19)
[2023-03-21 21:31] VITALS: BP 114/66; PULSE 72; RESP 18; TEMP 97.3; O2SAT 100
[2023-03-22 06:21] LABS: GLUCOMETER DEV NAME(LOC) 3E.C; GLUCOSE,POINT OF CARE 151 MG/DL (70-110)
[2023-03-22] MEDS: INSULIN LISPRO 100 UNITS/ML SQ PRN ×2 (06:39→17:42)
[2023-03-22] MEDS: MetFORMIN HCL 500 MG TABLET PO SCH ×2 (06:53→17:15)
[2023-03-22 07:07] LABS: BASOPHILS % (AUTO) 1.3 % (0.0-2.0); EOSINOPHILS % (AUTO) 3.6 % (1.0-6.0); HEMATOCRIT 36.9 % (36-46); LYMPHOCYTES # (AUTO) 3.6 K/uL (1.0-4.8); MEAN CORPUSCULAR HEMOGLOBIN 26.4 pg (26.0-34.0); MEAN CORPUSCULAR HGB CONC 32.6 G/dL (31.0-37.0); MEAN CORPUSCULAR VOLUME 81 fL (80-100); MONOCYTES # (AUTO) 0.4 K/uL (0.1-1.0); MONOCYTES % (AUTO) 4.7 % (2.0-9.0); NEUTROPHILS % (AUTO) 52.4 % (40.0-70.0); PLATELET COUNT (AUTO) 300 K/uL (150-450); RED BLOOD CELL COUNT(AUTO) 4.55 MIL/uL (4.00-5.20); RED CELL DISTRIBUTION WIDTH 15.6 % (11.5-14.5); WHITE BLOOD COUNT (AUTO) 9.5 K/uL (4.5-11.0)
[2023-03-22 07:25] LABS: ANION GAP 11 mmol/L (8-16); CARBON DIOXIDE 23 mmol/L (22-29); CHLORIDE 104 mmol/L (98-107); CREATININE 0.95 mg/dL (0.60-1.30); GLUCOSE,RANDOM 210 mg/dL (70-110); SODIUM SERUM 138 mmol/L (136-145); UREA NITROGEN, BLOOD 14 mg/dL (7-18)
[2023-03-22 07:26] LABS: ALANINE AMINOTRANSFERASE 26 U/L (12-78); ALKALINE PHOSPHATASE 93 U/L (46-116); ASPARTATE AMINOTRANSFERASE 15 U/L (15-37); BILIRUBIN,TOTAL 0.2 mg/dL (0.1-1.0); CALCIUM, TOTAL 8.4 mg/dL (8.8-10.5); CHOL/HDL RATIO 5.4 (3.9-5.7); CHOLESTEROL 172 mg/dL (131-200); GLOMERULAR FILTR. RATE CALC > 60 mL/min (>60); HDL CHOLESTEROL 32 mg/dL (40-60); LDL CHOL (CALC.) 103 mg/dL (0-130); TOTAL PROTEIN, SERUM 6.8 g/dL (6.4-8.2); TRIGLYCERIDES 183 mg/dL (15-150)
[2023-03-22 07:28] LABS: HEMOGLOBIN A1C 7.8 % (3.8-5.6)
[2023-03-22] MEDS ORDERED: PALIPERIDONE PALMITATE 117 MG/0.75 ML SYRINGE IM SCH (09:00)
[2023-03-22] MEDS: NICOTINE 14 MG/24 HOUR PATCH TD SCH (09:00)
[2023-03-22] MEDS: OMEGA-3/DHA/EPA/FISH OIL 1,000 MG CAPSULE PO SCH (09:54)
[2023-03-22] MEDS: MULTIVITAMINS WITH MINERALS, THERAPEUTIC TABLET PO SCH (09:54)
[2023-03-22] MEDS: PARoxetine HCL 20 MG TABLET PO SCH (09:54)
[2023-03-22] MEDS: NALTREXONE HCL 50 MG TABLET PO SCH (09:54)
[2023-03-22] MEDS: MODAFINIL 100 MG TABLET PO SCH (09:54)
[2023-03-22 09:55] VITALS: BP 108/62; PULSE 75; RESP 16; TEMP 97.9; O2SAT 97
[2023-03-22] MEDS: BusPIRone HCL 15 MG TABLET PO SCH ×2 (09:55→17:15)
[2023-03-22] MEDS: OLANZapine 5 MG RAPDIS TABLET PO PRN (17:14)
[2023-03-22 17:16] LABS: GLUCOMETER DEV NAME(LOC) 3E.C; GLUCOSE,POINT OF CARE 197 MG/DL (70-110)
[2023-03-22] MEDS: MELATONIN 5 MG TABLET PO SCH (21:01)
[2023-03-22] MEDS: OLANZapine 10 MG RAPDIS TABLET PO SCH (21:02)
[2023-03-22] MEDS: DIVALPROEX SODIUM 500 MG ER TABLET PO SCH (21:02)
[2023-03-22 22:28] VITALS: BP 153/86; PULSE 98; RESP 19; TEMP 97.1; O2SAT 98
[2023-03-23 06:42] LABS: GLUCOMETER DEV NAME(LOC) 3E.C; GLUCOSE,POINT OF CARE 163 MG/DL (70-110)
[2023-03-23] MEDS: MetFORMIN HCL 500 MG TABLET PO SCH ×2 (07:01→16:24)
[2023-03-23] MEDS: INSULIN LISPRO 100 UNITS/ML SQ PRN ×2 (07:02→17:06)
[2023-03-23] MEDS: OMEGA-3/DHA/EPA/FISH OIL 1,000 MG CAPSULE PO SCH (08:38)
[2023-03-23] MEDS: PARoxetine HCL 20 MG TABLET PO SCH (08:38)
[2023-03-23] MEDS: MULTIVITAMINS WITH MINERALS, THERAPEUTIC TABLET PO SCH (08:38)
[2023-03-23] MEDS: MODAFINIL 100 MG TABLET PO SCH (08:39)
[2023-03-23] MEDS: NICOTINE 14 MG/24 HOUR PATCH TD SCH (08:39)
[2023-03-23] MEDS: BusPIRone HCL 15 MG TABLET PO SCH ×2 (08:39→16:24)
[2023-03-23] MEDS: NALTREXONE HCL 50 MG TABLET PO SCH (08:39)
[2023-03-23 09:38] VITALS: BP 123/77; PULSE 77; RESP 18; TEMP 98.2; O2SAT 96
[2023-03-23 17:11] LABS: GLUCOMETER DEV NAME(LOC) 3E.C; GLUCOSE,POINT OF CARE 261 MG/DL (70-110)
[2023-03-23 20:11] VITALS: BP 138/78; PULSE 98; RESP 18; TEMP 97.1; O2SAT 98
[2023-03-23] MEDS: DIVALPROEX SODIUM 500 MG ER TABLET PO SCH (20:32)
[2023-03-23] MEDS: MELATONIN 5 MG TABLET PO SCH (20:32)
[2023-03-23] MEDS: OLANZapine 10 MG RAPDIS TABLET PO SCH (20:33)
[2023-03-24] MEDS: MetFORMIN HCL 500 MG TABLET PO SCH ×2 (06:45→16:32)
[2023-03-24 06:51] LABS: GLUCOMETER DEV NAME(LOC) 3E.C; GLUCOSE,POINT OF CARE 154 MG/DL (70-110)
[2023-03-24] MEDS: INSULIN LISPRO 100 UNITS/ML SQ PRN ×2 (06:53→17:38)
[2023-03-24] MEDS: OMEGA-3/DHA/EPA/FISH OIL 1,000 MG CAPSULE PO SCH (08:33)
[2023-03-24] MEDS: NALTREXONE HCL 50 MG TABLET PO SCH (08:34)
[2023-03-24] MEDS: MODAFINIL 100 MG TABLET PO SCH (08:34)
[2023-03-24] MEDS: MULTIVITAMINS WITH MINERALS, THERAPEUTIC TABLET PO SCH (08:34)
[2023-03-24] MEDS: PARoxetine HCL 20 MG TABLET PO SCH (08:34)
[2023-03-24] MEDS: NICOTINE 14 MG/24 HOUR PATCH TD SCH (08:34)
[2023-03-24] MEDS: BusPIRone HCL 15 MG TABLET PO SCH ×2 (08:35→16:32)
[2023-03-24 09:04] VITALS: BP 151/91; PULSE 83; RESP 18; TEMP 98.2; O2SAT 97
[2023-03-24 17:11] LABS: GLUCOMETER DEV NAME(LOC) 3E.C; GLUCOSE,POINT OF CARE 304 MG/DL (70-110)
[2023-03-24 20:15] VITALS: BP 152/90; PULSE 94; RESP 18; TEMP 97.5; O2SAT 98
[2023-03-24 20:17] VITALS: BP 152/90; PULSE 94; RESP 18; TEMP 97.5; O2SAT 97
[2023-03-24] MEDS: OLANZapine 10 MG RAPDIS TABLET PO SCH (20:42)
[2023-03-24] MEDS: MELATONIN 5 MG TABLET PO SCH (20:42)
[2023-03-24] MEDS: DIVALPROEX SODIUM 500 MG ER TABLET PO SCH (20:42)
[2023-03-25 06:36] LABS: GLUCOMETER DEV NAME(LOC) 3E.C; GLUCOSE,POINT OF CARE 181 MG/DL (70-110)
[2023-03-25] MEDS: MetFORMIN HCL 500 MG TABLET PO SCH ×2 (06:46→16:58)
[2023-03-25] MEDS: INSULIN LISPRO 100 UNITS/ML SQ PRN (06:47)
[2023-03-25 08:30] VITALS: BP 131/85; PULSE 87; RESP 18; TEMP 97.4; O2SAT 95
[2023-03-25] MEDS: BusPIRone HCL 15 MG TABLET PO SCH ×2 (11:12→16:58)
[2023-03-25] MEDS: PARoxetine HCL 20 MG TABLET PO SCH (11:15)
[2023-03-25] MEDS: OMEGA-3/DHA/EPA/FISH OIL 1,000 MG CAPSULE PO SCH (11:16)
[2023-03-25] MEDS: NALTREXONE HCL 50 MG TABLET PO SCH (11:19)
[2023-03-25] MEDS: MODAFINIL 100 MG TABLET PO SCH (11:19)
[2023-03-25] MEDS: MULTIVITAMINS WITH MINERALS, THERAPEUTIC TABLET PO SCH (11:20)
[2023-03-25] MEDS: LISINOPRIL 5 MG TABLET PO SCH (11:22)
[2023-03-25] MEDS: NICOTINE 14 MG/24 HOUR PATCH TD SCH (11:28)
[2023-03-25 17:01] LABS: GLUCOMETER DEV NAME(LOC) 3E.C; GLUCOSE,POINT OF CARE 137 MG/DL (70-110)
[2023-03-25 20:26] VITALS: BP 99/52; PULSE 82; RESP 18; TEMP 98.4; O2SAT 95
[2023-03-25] MEDS: MELATONIN 5 MG TABLET PO SCH (20:55)
[2023-03-25] MEDS: DIVALPROEX SODIUM 500 MG ER TABLET PO SCH (20:55)
[2023-03-25] MEDS: OLANZapine 10 MG RAPDIS TABLET PO SCH (20:56)
[2023-03-26] MEDS: MetFORMIN HCL 500 MG TABLET PO SCH ×2 (07:03→16:33)
[2023-03-26] MEDS: INSULIN LISPRO 100 UNITS/ML SQ PRN (07:04)
[2023-03-26 07:06] LABS: GLUCOMETER DEV NAME(LOC) 3E.C; GLUCOSE,POINT OF CARE 215 MG/DL (70-110)
[2023-03-26] MEDS: MULTIVITAMINS WITH MINERALS, THERAPEUTIC TABLET PO SCH (08:21)
[2023-03-26] MEDS: MODAFINIL 100 MG TABLET PO SCH (08:21)
[2023-03-26] MEDS: NALTREXONE HCL 50 MG TABLET PO SCH (08:22)
[2023-03-26] MEDS: OMEGA-3/DHA/EPA/FISH OIL 1,000 MG CAPSULE PO SCH (08:22)
[2023-03-26] MEDS: PARoxetine HCL 20 MG TABLET PO SCH (08:22)
[2023-03-26] MEDS: LISINOPRIL 5 MG TABLET PO SCH ×2 (08:22→08:27)
[2023-03-26] MEDS: NICOTINE 14 MG/24 HOUR PATCH TD SCH (08:23)
[2023-03-26] MEDS: BusPIRone HCL 15 MG TABLET PO SCH ×2 (08:23→16:33)
[2023-03-26 08:31] VITALS: BP 101/59; PULSE 75; RESP 17; TEMP 98.1; O2SAT 95
[2023-03-26 17:21] LABS: GLUCOMETER DEV NAME(LOC) 3E.C; GLUCOSE,POINT OF CARE 134 MG/DL (70-110)
[2023-03-26] MEDS: OLANZapine 10 MG RAPDIS TABLET PO SCH (20:04)
[2023-03-26] MEDS: DIVALPROEX SODIUM 500 MG ER TABLET PO SCH (20:04)
[2023-03-26] MEDS: MELATONIN 5 MG TABLET PO SCH (20:05)
[2023-03-26 21:21] VITALS: RESP 18; TEMP 98
[2023-03-27 06:06] LABS: GLUCOMETER DEV NAME(LOC) 3E.C; GLUCOSE,POINT OF CARE 187 MG/DL (70-110)
[2023-03-27] MEDS: INSULIN LISPRO 100 UNITS/ML SQ PRN ×2 (06:42→17:10)
[2023-03-27] MEDS: MetFORMIN HCL 500 MG TABLET PO SCH ×2 (06:42→16:43)
[2023-03-27 08:06] VITALS: BP 115/58; PULSE 93; RESP 18; TEMP 97.3; O2SAT 95
[2023-03-27] MEDS: NICOTINE 14 MG/24 HOUR PATCH TD SCH (09:06)
[2023-03-27] MEDS: BusPIRone HCL 15 MG TABLET PO SCH ×2 (09:06→16:43)
[2023-03-27] MEDS: NALTREXONE HCL 50 MG TABLET PO SCH (09:07)
[2023-03-27] MEDS: MULTIVITAMINS WITH MINERALS, THERAPEUTIC TABLET PO SCH (09:07)
[2023-03-27] MEDS: PARoxetine HCL 20 MG TABLET PO SCH (09:07)
[2023-03-27] MEDS: MODAFINIL 100 MG TABLET PO SCH (09:07)
[2023-03-27] MEDS: LinaGLIPtin 5 MG TABLET PO SCH (09:07)
[2023-03-27] MEDS: OMEGA-3/DHA/EPA/FISH OIL 1,000 MG CAPSULE PO SCH (09:07)
[2023-03-27] MEDS: LISINOPRIL 5 MG TABLET PO SCH (09:08)
[2023-03-27] MEDS ORDERED: BISACODYL 5 MG EC TABLET PO PRN (16:15)
[2023-03-27] MEDS: DOCUSATE SODIUM 100 MG CAPSULE PO SCH (16:43)
[2023-03-27 17:01] LABS: GLUCOMETER DEV NAME(LOC) 3E.C; GLUCOSE,POINT OF CARE 202 MG/DL (70-110)
[2023-03-27 20:14] VITALS: BP 122/76; PULSE 93; RESP 18; TEMP 98.1; O2SAT 98
[2023-03-27] MEDS ORDERED: HALOPERIDOL 10 MG TABLET PO ONE (20:30)
[2023-03-27] MEDS ORDERED: HALOPERIDOL 5 MG TABLET PO PRN (20:30)
[2023-03-27] MEDS: MELATONIN 5 MG TABLET PO SCH (20:42)
[2023-03-27] MEDS: DIVALPROEX SODIUM 500 MG ER TABLET PO SCH (20:42)
[2023-03-27] MEDS ORDERED: OLANZapine 10 MG RAPDIS TABLET PO SCH (21:00)
[2023-03-27] MEDS ORDERED: HALOPERIDOL 10 MG TABLET PO SCH (21:00)
[2023-03-28 06:41] LABS: GLUCOMETER DEV NAME(LOC) 3E.C; GLUCOSE,POINT OF CARE 136 MG/DL (70-110)
[2023-03-28] MEDS: MetFORMIN HCL 500 MG TABLET PO SCH ×2 (06:50→16:17)
[2023-03-28] MEDS: OMEGA-3/DHA/EPA/FISH OIL 1,000 MG CAPSULE PO SCH (08:23)
[2023-03-28] MEDS: NICOTINE 14 MG/24 HOUR PATCH TD SCH (08:23)
[2023-03-28] MEDS: MODAFINIL 100 MG TABLET PO SCH (08:24)
[2023-03-28] MEDS: PARoxetine HCL 20 MG TABLET PO SCH (08:24)
[2023-03-28] MEDS: MULTIVITAMINS WITH MINERALS, THERAPEUTIC TABLET PO SCH (08:24)
[2023-03-28] MEDS: BusPIRone HCL 15 MG TABLET PO SCH ×2 (08:24→16:17)
[2023-03-28] MEDS: NALTREXONE HCL 50 MG TABLET PO SCH (08:24)
[2023-03-28] MEDS: DOCUSATE SODIUM 100 MG CAPSULE PO SCH ×2 (08:24→16:17)
[2023-03-28] MEDS: LinaGLIPtin 5 MG TABLET PO SCH (08:24)
[2023-03-28] MEDS: LISINOPRIL 5 MG TABLET PO SCH (09:00)
[2023-03-28 09:45] VITALS: BP 108/55; PULSE 74; RESP 16; TEMP 98; O2SAT 96
[2023-03-28 11:56] LABS: GLUCOMETER DEV NAME(LOC) 3E.C; GLUCOSE,POINT OF CARE 137 MG/DL (70-110)
[2023-03-28 17:11] LABS: GLUCOMETER DEV NAME(LOC) 3E.C; GLUCOSE,POINT OF CARE 143 MG/DL (70-110)
[2023-03-28] MEDS: INSULIN LISPRO 100 UNITS/ML SQ PRN (17:14)
[2023-03-28 20:32] VITALS: BP 115/68; PULSE 78; RESP 18; TEMP 97.8; O2SAT 98
[2023-03-28] MEDS: HALOPERIDOL 10 MG TABLET PO SCH (20:43)
[2023-03-28] MEDS: MELATONIN 5 MG TABLET PO SCH (20:43)
[2023-03-28] MEDS: DIVALPROEX SODIUM 500 MG ER TABLET PO SCH (20:43)
[2023-03-28] MEDS ORDERED: OLANZapine 10 MG RAPDIS TABLET PO SCH (21:00)
[2023-03-28] MEDS ORDERED: HALOPERIDOL 10 MG TABLET PO SCH (21:00)
[2023-03-29] MEDS: INSULIN LISPRO 100 UNITS/ML SQ PRN ×2 (06:47→17:58)
[2023-03-29] MEDS: MetFORMIN HCL 500 MG TABLET PO SCH ×2 (06:48→17:56)
[2023-03-29 06:56] LABS: GLUCOMETER DEV NAME(LOC) 3E.C; GLUCOSE,POINT OF CARE 100 MG/DL (70-110)
[2023-03-29] MEDS: MULTIVITAMINS WITH MINERALS, THERAPEUTIC TABLET PO SCH (08:59)
[2023-03-29] MEDS: OMEGA-3/DHA/EPA/FISH OIL 1,000 MG CAPSULE PO SCH (08:59)
[2023-03-29] MEDS: DOCUSATE SODIUM 100 MG CAPSULE PO SCH ×2 (08:59→17:56)
[2023-03-29] MEDS: NALTREXONE HCL 50 MG TABLET PO SCH (08:59)
[2023-03-29] MEDS: PARoxetine HCL 20 MG TABLET PO SCH (08:59)
[2023-03-29] MEDS: MODAFINIL 100 MG TABLET PO SCH (09:00)
[2023-03-29] MEDS: LISINOPRIL 5 MG TABLET PO SCH (09:00)
[2023-03-29] MEDS: NICOTINE 14 MG/24 HOUR PATCH TD SCH (09:00)
[2023-03-29] MEDS: LinaGLIPtin 5 MG TABLET PO SCH (09:01)
[2023-03-29] MEDS: BusPIRone HCL 15 MG TABLET PO SCH ×2 (09:01→17:56)
[2023-03-29 09:05] VITALS: BP 100/56; PULSE 84; RESP 18; TEMP 98.4; O2SAT 95
[2023-03-29] MEDS: PROMETHAZINE HCL 25 MG TABLET PO PRN ×2 (15:20→20:24)
[2023-03-29 15:32] LABS: GLUCOMETER DEV NAME(LOC) 3E.C; GLUCOSE,POINT OF CARE 117 MG/DL (70-110)
[2023-03-29] MEDS ORDERED: HALO10TA21 PO (15:38)
[2023-03-29] MEDS ORDERED: PARO-37 PO (15:38)
[2023-03-29] MEDS ORDERED: OMEG-135 PO (15:38)
[2023-03-29] MEDS ORDERED: DIVA500T69 PO (15:38)
[2023-03-29] MEDS ORDERED: MODA100T65 PO (15:38)
[2023-03-29] MEDS ORDERED: MELA5TAB40 PO (15:38)
[2023-03-29] MEDS ORDERED: BUSP15 PO (15:38)
[2023-03-29] MEDS: DIVALPROEX SODIUM 500 MG ER TABLET PO SCH (20:15)
[2023-03-29] MEDS: MELATONIN 5 MG TABLET PO SCH (20:15)
[2023-03-29] MEDS: HALOPERIDOL 10 MG TABLET PO SCH (20:15)
[2023-03-29 21:34] VITALS: BP 119/75; PULSE 73; RESP 19; TEMP 97.3; O2SAT 99
[2023-03-30 06:11] LABS: GLUCOMETER DEV NAME(LOC) 3E.C; GLUCOSE,POINT OF CARE 138 MG/DL (70-110)
[2023-03-30] MEDS: MetFORMIN HCL 500 MG TABLET PO SCH (06:34)
[2023-03-30] MEDS: NICOTINE 14 MG/24 HOUR PATCH TD SCH (08:46)
[2023-03-30] MEDS: BusPIRone HCL 15 MG TABLET PO SCH (08:46)
[2023-03-30] MEDS: LinaGLIPtin 5 MG TABLET PO SCH (08:46)
[2023-03-30] MEDS: NALTREXONE HCL 50 MG TABLET PO SCH (08:46)
[2023-03-30] MEDS: MULTIVITAMINS WITH MINERALS, THERAPEUTIC TABLET PO SCH (08:47)
[2023-03-30] MEDS: OMEGA-3/DHA/EPA/FISH OIL 1,000 MG CAPSULE PO SCH (08:47)
[2023-03-30] MEDS: DOCUSATE SODIUM 100 MG CAPSULE PO SCH (08:47)
[2023-03-30] MEDS: MODAFINIL 100 MG TABLET PO SCH (08:47)
[2023-03-30] MEDS: PARoxetine HCL 20 MG TABLET PO SCH (08:48)
[2023-03-30] MEDS: LISINOPRIL 5 MG TABLET PO SCH (08:48)
[2023-03-30 09:30] VITALS: BP 106/56; PULSE 84; RESP 18; TEMP 96.8; O2SAT 96
[2023-03-30] MEDS ORDERED: NALT50TA33 PO (11:39)
[2023-03-30] MEDS ORDERED: DOCU-385 PO (14:39)
[2023-03-30] MEDS ORDERED: LISI-892 PO (14:39)
[2023-03-30] MEDS ORDERED: LINA5TAB PO (14:39)
[2023-03-30] MEDS ORDERED: METF-1211 PO (14:42)
[2023-03-30] MEDS ORDERED: [UNRECOGNIZED DRUG - CODE] PO (14:42)
== END 2023-03-30 16:39 | disposition home or self-care (01) | DRG 750 ==
LOC: 3EI 17:58
PROVIDERS: ADMIT Psychiatry & Neurology Psychiatry; ATTEND Psychiatry & Neurology Psychiatry
PROC: GZHZZZZ Group Psychotherapy (ICD-10-PCS; principal; 2023-02-22)
DX: F25.1 Schizoaffective disorder, depressive type (principal); E11.9 Type 2 diabetes mellitus without complications; R45.851 Suicidal ideations; G47.00 Insomnia, unspecified; J44.9 Chronic obstructive pulmonary disease, unspecified; F19.10 Other psychoactive substance abuse, uncomplicated; F17.200 Nicotine dependence, unspecified, uncomplicated; Z20.822 Contact with and (suspected) exposure to COVID-19; F41.9 Anxiety disorder, unspecified; E66.01 Morbid (severe) obesity due to excess calories; Z59.00 Homelessness unspecified; Z86.16 Personal history of COVID-19; Z88.6 Allergy status to analgesic agent; Z87.440 Personal history of urinary (tract) infections; Z91.199 Patient's noncompliance with other medical treatment and regimen due to unspecified reason; Z91.148 Patient's other noncompliance with medication regimen for other reason; Z79.899 Other long term (current) drug therapy; Z68.42 Body mass index [BMI] 45.0-49.9, adult
CPT/HCPCS: 80053; 80061; 80164; 82962; 83036; 85025; 87081; J3535; Q9967; 36415-L1; 36415-TC; J2416; J2426; Z7610

== ENCOUNTER 2023-03-31 12:44 | Emergency (ER) | payer MEDICAID, OTHER ==
[~2023-03-31] VITALS: Ht 165.1 cm; Wt 132.7 kg
[~2023-03-31 12:44] MED LIST changes: -ACET-66 PO; +BUSP15 PO; +DOCU-385 PO; +HALO10TA21 PO; +LINA5TAB PO; +LISI-892 PO; +METF-1211 PO; +MODA100T65 PO; -OLAN20TA35 PO; -PALI117D IM; +PARO-37 PO; +[UNRECOGNIZED DRUG - CODE] PO
[2023-03-31 12:55] VITALS: BP 143/76; PULSE 69; RESP 16; TEMP 97.8
[2023-03-31 14:15] LABS: BASOPHILS % (AUTO) 0.5 % (0.0-2.0); EOSINOPHILS % (AUTO) 2.1 % (1.0-6.0); HEMATOCRIT 37.3 % (36-46); HEMOGLOBIN 12.2 g/dL (12.0-16.0); LYMPHOCYTES # (AUTO) 1.6 K/uL (1.0-4.8); LYMPHOCYTES % (AUTO) 16.4 % (22.0-44.0); MEAN CORPUSCULAR HEMOGLOBIN 26.6 pg (26.0-34.0); MEAN CORPUSCULAR HGB CONC 32.8 G/dL (31.0-37.0); MEAN CORPUSCULAR VOLUME 81 fL (80-100); MONOCYTES # (AUTO) 0.5 K/uL (0.1-1.0); MONOCYTES % (AUTO) 4.8 % (2.0-9.0); NEUTROPHILS # (AUTO) 7.4 K/uL (1.8-7.7); NEUTROPHILS % (AUTO) 76.2 % (40.0-70.0); PLATELET COUNT (AUTO) 277 K/uL (150-450); RED CELL DISTRIBUTION WIDTH 15.6 % (11.5-14.5); WHITE BLOOD COUNT (AUTO) 9.7 K/uL (4.5-11.0)
[2023-03-31 14:30] LABS: ANION GAP 12 mmol/L (8-16); CALCIUM, TOTAL 8.1 mg/dL (8.8-10.5); CARBON DIOXIDE 24 mmol/L (22-29); CHLORIDE 105 mmol/L (98-107); CREATININE 0.83 mg/dL (0.60-1.30); GLOMERULAR FILTR. RATE CALC > 60 mL/min (>60); GLUCOSE,RANDOM 188 mg/dL (70-110); POTASSIUM 4.2 mmol/L (3.5-5.1); SODIUM SERUM 141 mmol/L (136-145); UREA NITROGEN, BLOOD 14 mg/dL (7-18)
[2023-03-31 14:36] LABS: ALANINE AMINOTRANSFERASE 47 U/L (12-78); ALBUMIN 3.6 g/dL (3.4-5.0); ALCOHOL, BLOOD (SERUM) < 3 mg/dL (0-10); ALKALINE PHOSPHATASE 98 U/L (46-116); ASPARTATE AMINOTRANSFERASE 31 U/L (15-37); BILIRUBIN,TOTAL 0.3 mg/dL (0.1-1.0); TOTAL PROTEIN, SERUM 7.3 g/dL (6.4-8.2)
== END 2023-03-31 19:19 | disposition left against medical advice (07) ==
LOC: EMS 12:44
DX: R44.3 Hallucinations, unspecified (principal); Z53.21 Procedure and treatment not carried out due to patient leaving prior to being seen by health care provider
CPT/HCPCS: 99281; 80053; 85025; G0480

== ENCOUNTER 2023-03-31 20:38 | Emergency (ER) | payer OTHER ==
[~2023-03-31] VITALS: Ht 165.1 cm; Wt 131.0 kg
[2023-03-31 21:13] VITALS: TEMP 98
[2023-03-31 22:17] LABS: BASOPHILS % (AUTO) 0.5 % (0.0-2.0); EOSINOPHILS % (AUTO) 0.6 % (1.0-6.0); HEMATOCRIT 38.4 % (36-46); HEMOGLOBIN 12.6 g/dL (12.0-16.0); LYMPHOCYTES # (AUTO) 1.8 K/uL (1.0-4.8); MEAN CORPUSCULAR HEMOGLOBIN 26.7 pg (26.0-34.0); MEAN CORPUSCULAR HGB CONC 32.9 G/dL (31.0-37.0); MEAN CORPUSCULAR VOLUME 81 fL (80-100); MONOCYTES # (AUTO) 0.4 K/uL (0.1-1.0); NEUTROPHILS # (AUTO) 8.1 K/uL (1.8-7.7); NEUTROPHILS % (AUTO) 77.9 % (40.0-70.0); PLATELET COUNT (AUTO) 314 K/uL (150-450); RED BLOOD CELL COUNT(AUTO) 4.73 MIL/uL (4.00-5.20); RED CELL DISTRIBUTION WIDTH 16.2 % (11.5-14.5); WHITE BLOOD COUNT (AUTO) 10.4 K/uL (4.5-11.0)
[2023-03-31 22:28] LABS: ANION GAP 16 mmol/L (8-16); CALCIUM, TOTAL 8.6 mg/dL (8.8-10.5); CARBON DIOXIDE 25 mmol/L (22-29); CHLORIDE 101 mmol/L (98-107); CREATININE 1.02 mg/dL (0.60-1.30); GLOMERULAR FILTR. RATE CALC > 60 mL/min (>60); GLUCOSE,RANDOM 210 mg/dL (70-110); POTASSIUM 3.7 mmol/L (3.5-5.1); SODIUM SERUM 142 mmol/L (136-145); UREA NITROGEN, BLOOD 12 mg/dL (7-18)
[2023-03-31 22:33] LABS: ALANINE AMINOTRANSFERASE 65 U/L (12-78); ALBUMIN 4.1 g/dL (3.4-5.0); ALKALINE PHOSPHATASE 112 U/L (46-116); ASPARTATE AMINOTRANSFERASE 41 U/L (15-37); BILIRUBIN,TOTAL 0.1 mg/dL (0.1-1.0); TOTAL PROTEIN, SERUM 7.9 g/dL (6.4-8.2)
[2023-03-31 22:35] LABS: ALCOHOL, BLOOD (SERUM) < 3 mg/dL (0-10)
[2023-04-01 00:14] LABS: COVID AG,FIA SOURCE NASAL SWAB
[2023-04-01 00:36] LABS: SARS-COV2 (COVID) ANTIGEN,FIA Negative (Negative)
[2023-04-01] MEDS: OLANZapine 5 MG TABLET PO ONE ×2 (01:21→01:47)
[2023-04-01] MEDS: LORazepam 2 MG TABLET PO ONE ×2 (01:21→01:47)
[2023-04-01] MEDS ORDERED: HALOPERIDOL LACTATE 5 MG/ML VIAL IM ONE (02:00)
[2023-04-01] MEDS ORDERED: LORazepam 2 MG/ML VIAL IM ONE (02:00)
[2023-04-01 05:11] VITALS: BP 122/64; PULSE 91; RESP 18
== END 2023-04-01 10:54 | disposition home or self-care (01) ==
LOC: EMS 20:39
DX: F20.9 Schizophrenia, unspecified (principal); F15.10 Other stimulant abuse, uncomplicated; F41.9 Anxiety disorder, unspecified; F31.9 Bipolar disorder, unspecified; J45.909 Unspecified asthma, uncomplicated; F17.210 Nicotine dependence, cigarettes, uncomplicated; Z88.6 Allergy status to analgesic agent; Z20.822 Contact with and (suspected) exposure to COVID-19
CPT/HCPCS: 99284; 87426; 80053; 84703; 85025; 96372; G0480; J1630; J2060

== ENCOUNTER 2023-04-02 15:09 | Inpatient (IN) | payer MEDICAID, OTHER ==
[~2023-04-02] VITALS: Ht 170.2 cm; Wt 121.1 kg
[2023-04-02 16:59] LABS: BASOPHILS % (AUTO) 0.7 % (0.0-2.0); EOSINOPHILS % (AUTO) 0.3 % (1.0-6.0); HEMOGLOBIN 12.4 g/dL (12.0-16.0); LYMPHOCYTES # (AUTO) 1.4 K/uL (1.0-4.8); LYMPHOCYTES % (AUTO) 11.1 % (22.0-44.0); MEAN CORPUSCULAR HEMOGLOBIN 26.6 pg (26.0-34.0); MEAN CORPUSCULAR HGB CONC 32.5 G/dL (31.0-37.0); MEAN CORPUSCULAR VOLUME 82 fL (80-100); MONOCYTES # (AUTO) 0.4 K/uL (0.1-1.0); NEUTROPHILS # (AUTO) 10.9 K/uL (1.8-7.7); NEUTROPHILS % (AUTO) 84.9 % (40.0-70.0); PLATELET COUNT (AUTO) 338 K/uL (150-450); RED BLOOD CELL COUNT(AUTO) 4.65 MIL/uL (4.00-5.20); RED CELL DISTRIBUTION WIDTH 15.9 % (11.5-14.5); WHITE BLOOD COUNT (AUTO) 12.8 K/uL (4.5-11.0)
[2023-04-02 17:08] LABS: ANION GAP 13 mmol/L (8-16); CARBON DIOXIDE 24 mmol/L (22-29); CHLORIDE 105 mmol/L (98-107); CREATININE 1.17 mg/dL (0.60-1.30); GLOMERULAR FILTR. RATE CALC > 60 mL/min (>60); GLUCOSE,RANDOM 192 mg/dL (70-110); POTASSIUM 4.1 mmol/L (3.5-5.1); SODIUM SERUM 142 mmol/L (136-145); UREA NITROGEN, BLOOD 19 mg/dL (7-18)
[2023-04-02 17:15] LABS: ALANINE AMINOTRANSFERASE 132 U/L (12-78); ALBUMIN 4.1 g/dL (3.4-5.0); ALCOHOL, BLOOD (SERUM) < 3 mg/dL (0-10); ALKALINE PHOSPHATASE 116 U/L (46-116); ASPARTATE AMINOTRANSFERASE 73 U/L (15-37); BILIRUBIN,TOTAL 0.1 mg/dL (0.1-1.0); TOTAL PROTEIN, SERUM 7.8 g/dL (6.4-8.2)
[2023-04-02 17:27] LABS: COVID AG,FIA SOURCE NASAL SWAB
[2023-04-02] MEDS: OLANZapine 5 MG TABLET PO ONE (17:37)
[2023-04-02 17:50] LABS: SARS-COV2 (COVID) ANTIGEN,FIA Negative (Negative)
[2023-04-02] MEDS: LORazepam 2 MG TABLET PO PRN (18:47)
[2023-04-02 21:32] VITALS: BP 120/82; PULSE 82; RESP 17; TEMP 98; O2SAT 98
[2023-04-02 21:56] LABS: GLUCOMETER DEV NAME(LOC) BV3S.; GLUCOSE,POINT OF CARE 141 MG/DL (70-110)
[2023-04-03] MEDS ORDERED: BACITRACIN 28 GM OINTMENT TP PRN (05:45)
[2023-04-03] MEDS ORDERED: INSULIN LISPRO 100 UNITS/ML SQ PRN (05:45)
[2023-04-03] MEDS ORDERED: MAG HYDROX/ALUMINUM HYD/SIMETH ES 30 ML SUSPENSION UDCUP PO PRN (05:45)
[2023-04-03] MEDS ORDERED: PETROLATUM,WHITE 28 GM JELLY TP PRN (05:45)
[2023-04-03] MEDS ORDERED: GLUCAGON,HUMAN RECOMBINANT 1 MG VIAL IM PRN ×2 (05:45→14:30)
[2023-04-03] MEDS ORDERED: LOPERAMIDE HCL 2 MG CAPSULE PO PRN (05:45)
[2023-04-03] MEDS ORDERED: ALBUTEROL SULFATE HFA 90 MCG/PUFF 8 GM INHALER IH PRN (05:45)
[2023-04-03] MEDS ORDERED: CloNIDine HCL 0.1 MG TABLET PO PRN (05:45)
[2023-04-03] MEDS ORDERED: OMEPRAZOLE 20 MG CAPSULE PO PRN (05:45)
[2023-04-03] MEDS: MetFORMIN HCL 500 MG TABLET PO SCH (06:43)
[2023-04-03 07:06] LABS: GLUCOMETER DEV NAME(LOC) BV3S.; GLUCOSE,POINT OF CARE 139 MG/DL (70-110)
[2023-04-03 08:37] VITALS: BP 116/74; PULSE 94; RESP 18; TEMP 97.9; O2SAT 99
[2023-04-03] MEDS: OMEGA-3/DHA/EPA/FISH OIL 1,000 MG CAPSULE PO SCH (09:30)
[2023-04-03] MEDS: MODAFINIL 100 MG TABLET PO SCH (09:36)
[2023-04-03] MEDS: NALTREXONE HCL 50 MG TABLET PO SCH (09:40)
[2023-04-03] MEDS: LinaGLIPtin 5 MG TABLET PO SCH (09:40)
[2023-04-03] MEDS: LISINOPRIL 5 MG TABLET PO SCH (09:40)
[2023-04-03 11:31] LABS: GLUCOMETER DEV NAME(LOC) BV3S.; GLUCOSE,POINT OF CARE 133 MG/DL (70-110)
[2023-04-03] MEDS: INSULIN LISPRO 100 UNITS/ML SQ PRN (16:36)
[2023-04-03 17:16] LABS: GLUCOMETER DEV NAME(LOC) BV3S.; GLUCOSE,POINT OF CARE 163 MG/DL (70-110)
[2023-04-03 20:05] VITALS: BP 129/62; PULSE 86; RESP 18; TEMP 97.8
[2023-04-03 21:46] LABS: GLUCOMETER DEV NAME(LOC) BV3S.; GLUCOSE,POINT OF CARE 97 MG/DL (70-110)
[2023-04-03] MEDS: ATORVASTATIN CALCIUM 10 MG TABLET PO SCH (21:54)
[2023-04-03] MEDS: MELATONIN 5 MG TABLET PO SCH (21:54)
[2023-04-04] MEDS: DIVALPROEX SODIUM 500 MG ER TABLET PO SCH (04:37)
[2023-04-04 06:07] LABS: GLUCOMETER DEV NAME(LOC) BV3S.; GLUCOSE,POINT OF CARE 140 MG/DL (70-110)
[2023-04-04 08:24] VITALS: BP 143/93; PULSE 85; RESP 18; TEMP 98.4; O2SAT 97
[2023-04-04] MEDS: PARoxetine HCL 10 MG TABLET PO SCH (08:26)
[2023-04-04] MEDS: BusPIRone HCL 15 MG TABLET PO SCH (08:26)
[2023-04-04 11:27] LABS: GLUCOMETER DEV NAME(LOC) BV3S.; GLUCOSE,POINT OF CARE 129 MG/DL (70-110)
[2023-04-04 17:01] LABS: GLUCOMETER DEV NAME(LOC) BV3S.; GLUCOSE,POINT OF CARE 120 MG/DL (70-110)
[2023-04-04] MEDS: ZOLPIDEM TARTRATE 10 MG TABLET PO PRN (20:03)
[2023-04-04 20:04] VITALS: BP 140/90; PULSE 98; RESP 18; TEMP 98.7; O2SAT 96
[2023-04-04 21:16] LABS: GLUCOMETER DEV NAME(LOC) BV3S.; GLUCOSE,POINT OF CARE 126 MG/DL (70-110)
[2023-04-05 05:57] LABS: GLUCOMETER DEV NAME(LOC) BV3S.; GLUCOSE,POINT OF CARE 106 MG/DL (70-110)
[2023-04-05 08:39] VITALS: BP 126/79; PULSE 86; RESP 18; TEMP 97.9; O2SAT 97
[2023-04-05 12:06] LABS: GLUCOMETER DEV NAME(LOC) BV3S.; GLUCOSE,POINT OF CARE 147 MG/DL (70-110)
[2023-04-05 17:21] LABS: GLUCOMETER DEV NAME(LOC) BV3S.; GLUCOSE,POINT OF CARE 138 MG/DL (70-110)
[2023-04-05 20:47] LABS: GLUCOMETER DEV NAME(LOC) BV3S.; GLUCOSE,POINT OF CARE 114 MG/DL (70-110)
[2023-04-05 21:12] VITALS: BP 104/70; PULSE 95; RESP 17; TEMP 98; O2SAT 98
[2023-04-06 06:31] LABS: GLUCOMETER DEV NAME(LOC) BV3S.; GLUCOSE,POINT OF CARE 128 MG/DL (70-110)
[2023-04-06 10:01] VITALS: BP 102/58; PULSE 79; RESP 18; TEMP 98.1; O2SAT 97
[2023-04-06 11:30] LABS: GLUCOMETER DEV NAME(LOC) BV3S.; GLUCOSE,POINT OF CARE 147 MG/DL (70-110)
[2023-04-06] MEDS: OLANZapine 5 MG RAPDIS TABLET PO PRN (14:57)
[2023-04-06 17:00] LABS: GLUCOMETER DEV NAME(LOC) BV3S.; GLUCOSE,POINT OF CARE 168 MG/DL (70-110)
[2023-04-06 20:16] LABS: GLUCOMETER DEV NAME(LOC) BV3S.; GLUCOSE,POINT OF CARE 105 MG/DL (70-110)
[2023-04-06 21:09] VITALS: BP 103/62; PULSE 89; RESP 18; TEMP 98.9; O2SAT 100
[2023-04-07 05:57] LABS: GLUCOMETER DEV NAME(LOC) BV3S.; GLUCOSE,POINT OF CARE 98 MG/DL (70-110)
[2023-04-07 08:58] VITALS: BP 122/63; PULSE 76; RESP 16; TEMP 97.9; O2SAT 96
[2023-04-07 11:26] LABS: GLUCOMETER DEV NAME(LOC) BV3S.; GLUCOSE,POINT OF CARE 88 MG/DL (70-110)
[2023-04-07 16:45] LABS: GLUCOMETER DEV NAME(LOC) BV3S.; GLUCOSE,POINT OF CARE 110 MG/DL (70-110)
[2023-04-07 20:36] LABS: GLUCOMETER DEV NAME(LOC) BV3S.; GLUCOSE,POINT OF CARE 119 MG/DL (70-110)
[2023-04-07 22:08] VITALS: BP 124/70; PULSE 87; TEMP 97.5; O2SAT 97
[2023-04-08 07:01] LABS: GLUCOMETER DEV NAME(LOC) BV3S.; GLUCOSE,POINT OF CARE 93 MG/DL (70-110)
[2023-04-08 10:38] VITALS: BP 118/64; PULSE 94; RESP 16; TEMP 98.5; O2SAT 98
[2023-04-08 11:56] LABS: GLUCOMETER DEV NAME(LOC) BV3S.; GLUCOSE,POINT OF CARE 109 MG/DL (70-110)
[2023-04-08] MEDS: NICOTINE 14 MG/24 HOUR PATCH TD SCH (18:28)
[2023-04-08 20:18] VITALS: BP 119/60; PULSE 76; RESP 17; TEMP 97.2; O2SAT 98
[2023-04-08 20:21] LABS: GLUCOMETER DEV NAME(LOC) BV3S.; GLUCOSE,POINT OF CARE 128 MG/DL (70-110)
[2023-04-09 06:41] LABS: GLUCOMETER DEV NAME(LOC) BV3S.; GLUCOSE,POINT OF CARE 142 MG/DL (70-110)
[2023-04-09 09:16] VITALS: RESP 18
[2023-04-09 11:31] LABS: GLUCOMETER DEV NAME(LOC) BV3S.; GLUCOSE,POINT OF CARE 121 MG/DL (70-110)
[2023-04-09 17:06] LABS: GLUCOMETER DEV NAME(LOC) BV3S.; GLUCOSE,POINT OF CARE 140 MG/DL (70-110)
[2023-04-09 20:52] LABS: GLUCOMETER DEV NAME(LOC) BV3S.; GLUCOSE,POINT OF CARE 134 MG/DL (70-110)
[2023-04-09 21:43] VITALS: BP 116/84; PULSE 94; RESP 18; TEMP 97.5; O2SAT 98
[2023-04-10 05:16] LABS: GLUCOMETER DEV NAME(LOC) BV3S.; GLUCOSE,POINT OF CARE 115 MG/DL (70-110)
[2023-04-10 08:28] VITALS: BP 122/86; PULSE 82; RESP 18; TEMP 97.8; O2SAT 98
[2023-04-10 12:26] LABS: GLUCOMETER DEV NAME(LOC) BV3S.; GLUCOSE,POINT OF CARE 131 MG/DL (70-110)
[2023-04-10 17:11] LABS: GLUCOMETER DEV NAME(LOC) BV3S.; GLUCOSE,POINT OF CARE 146 MG/DL (70-110)
[2023-04-10 20:19] VITALS: BP 117/66; PULSE 77; RESP 18; TEMP 97.6
[2023-04-10 20:51] LABS: GLUCOMETER DEV NAME(LOC) BV3S.; GLUCOSE,POINT OF CARE 141 MG/DL (70-110)
[2023-04-11 06:46] LABS: GLUCOMETER DEV NAME(LOC) BV3S.; GLUCOSE,POINT OF CARE 86 MG/DL (70-110)
[2023-04-11 08:09] VITALS: BP 126/74; PULSE 88; RESP 18; TEMP 98.6; O2SAT 99
[2023-04-11 11:56] LABS: GLUCOMETER DEV NAME(LOC) BV3S.; GLUCOSE,POINT OF CARE 153 MG/DL (70-110)
[2023-04-11 17:12] LABS: GLUCOMETER DEV NAME(LOC) BV3S.; GLUCOSE,POINT OF CARE 111 MG/DL (70-110)
[2023-04-11 20:17] VITALS: BP 130/79; PULSE 84; RESP 18; TEMP 96; O2SAT 99
[2023-04-11 20:27] LABS: GLUCOMETER DEV NAME(LOC) BV3S.; GLUCOSE,POINT OF CARE 156 MG/DL (70-110)
[2023-04-12 06:21] LABS: GLUCOMETER DEV NAME(LOC) BV3S.; GLUCOSE,POINT OF CARE 131 MG/DL (70-110)
[2023-04-12 08:07] VITALS: BP 123/79; PULSE 80; RESP 16; TEMP 98; O2SAT 99
[2023-04-12] MEDS: NICOTINE 21 MG/24 HOUR PATCH TD SCH (08:10)
[2023-04-12 12:01] LABS: GLUCOMETER DEV NAME(LOC) BV3S.; GLUCOSE,POINT OF CARE 142 MG/DL (70-110)
[2023-04-12 16:31] LABS: GLUCOMETER DEV NAME(LOC) BV3S.; GLUCOSE,POINT OF CARE 181 MG/DL (70-110)
[2023-04-12 20:17] LABS: GLUCOMETER DEV NAME(LOC) BV3S.; GLUCOSE,POINT OF CARE 163 MG/DL (70-110)
[2023-04-13 00:20] VITALS: RESP 16
[2023-04-13 06:11] LABS: GLUCOMETER DEV NAME(LOC) BV3N.; GLUCOSE,POINT OF CARE 93 MG/DL (70-110)
[2023-04-13 08:50] VITALS: BP 103/67; PULSE 76; RESP 18; TEMP 97.5; O2SAT 96
[2023-04-13 11:46] LABS: GLUCOMETER DEV NAME(LOC) BV3S.; GLUCOSE,POINT OF CARE 139 MG/DL (70-110)
[2023-04-13 16:41] LABS: GLUCOMETER DEV NAME(LOC) BV3S.; GLUCOSE,POINT OF CARE 109 MG/DL (70-110)
[2023-04-13 17:33] VITALS: BP 104/60; PULSE 87; RESP 17; TEMP 97; O2SAT 96
[2023-04-13 18:07] LABS: GLUCOMETER DEV NAME(LOC) BV3S.; GLUCOSE,POINT OF CARE 145 MG/DL (70-110)
[2023-04-13 20:46] LABS: GLUCOMETER DEV NAME(LOC) BV3S.; GLUCOSE,POINT OF CARE 125 MG/DL (70-110)
[2023-04-13 23:56] VITALS: BP 128/76; PULSE 81; RESP 18; TEMP 97.7
[2023-04-14 06:41] LABS: GLUCOMETER DEV NAME(LOC) BV3S.; GLUCOSE,POINT OF CARE 142 MG/DL (70-110)
[2023-04-14 08:48] VITALS: BP 127/85; PULSE 90; RESP 16; TEMP 98; O2SAT 97
[2023-04-14 11:41] LABS: GLUCOMETER DEV NAME(LOC) BV3S.; GLUCOSE,POINT OF CARE 119 MG/DL (70-110)
[2023-04-14 16:51] LABS: GLUCOMETER DEV NAME(LOC) BV3S.; GLUCOSE,POINT OF CARE 159 MG/DL (70-110)
[2023-04-14 20:26] LABS: GLUCOMETER DEV NAME(LOC) BV3S.; GLUCOSE,POINT OF CARE 90 MG/DL (70-110)
[2023-04-14 21:27] VITALS: BP 147/79; PULSE 81; RESP 18; TEMP 98.4; O2SAT 98
[2023-04-15 06:41] LABS: GLUCOMETER DEV NAME(LOC) BV3S.; GLUCOSE,POINT OF CARE 120 MG/DL (70-110)
[2023-04-15 08:27] VITALS: BP 133/88; PULSE 87; RESP 18; TEMP 98; O2SAT 98
[2023-04-15 11:46] LABS: GLUCOMETER DEV NAME(LOC) BV3S.; GLUCOSE,POINT OF CARE 119 MG/DL (70-110)
[2023-04-15 16:56] LABS: GLUCOMETER DEV NAME(LOC) BV3S.; GLUCOSE,POINT OF CARE 128 MG/DL (70-110)
[2023-04-15 20:46] LABS: GLUCOMETER DEV NAME(LOC) BV3S.; GLUCOSE,POINT OF CARE 165 MG/DL (70-110)
[2023-04-15 21:44] VITALS: BP 121/60; PULSE 89; RESP 18; TEMP 98.2; O2SAT 95
[2023-04-16 06:46] LABS: GLUCOMETER DEV NAME(LOC) BV3S.; GLUCOSE,POINT OF CARE 104 MG/DL (70-110)
[2023-04-16 08:17] VITALS: RESP 18
[2023-04-16 11:51] LABS: GLUCOMETER DEV NAME(LOC) BV3S.; GLUCOSE,POINT OF CARE 127 MG/DL (70-110)
[2023-04-16 16:46] LABS: GLUCOMETER DEV NAME(LOC) BV3S.; GLUCOSE,POINT OF CARE 125 MG/DL (70-110)
[2023-04-16 20:07] VITALS: BP 129/70; PULSE 71; RESP 18; TEMP 97.7; O2SAT 97
[2023-04-16 21:01] LABS: GLUCOMETER DEV NAME(LOC) BV3S.; GLUCOSE,POINT OF CARE 133 MG/DL (70-110)
[2023-04-17 06:56] LABS: GLUCOMETER DEV NAME(LOC) BV3S.; GLUCOSE,POINT OF CARE 82 MG/DL (70-110)
[2023-04-17 08:24] VITALS: BP 132/65; PULSE 73; RESP 16; TEMP 98; O2SAT 97
[2023-04-17 11:46] LABS: GLUCOMETER DEV NAME(LOC) BV3S.; GLUCOSE,POINT OF CARE 134 MG/DL (70-110)
[2023-04-17 16:46] LABS: GLUCOMETER DEV NAME(LOC) BV3S.; GLUCOSE,POINT OF CARE 156 MG/DL (70-110)
[2023-04-17] MEDS: HALOPERIDOL 10 MG TABLET PO ONE (20:53)
[2023-04-17 20:55] LABS: GLUCOMETER DEV NAME(LOC) BV3S.; GLUCOSE,POINT OF CARE 151 MG/DL (70-110)
[2023-04-17 22:05] VITALS: BP 113/67; PULSE 75; RESP 18; TEMP 97.5; O2SAT 99
[2023-04-18 06:26] LABS: GLUCOMETER DEV NAME(LOC) BV3S.; GLUCOSE,POINT OF CARE 102 MG/DL (70-110)
[2023-04-18 08:00] LABS: BASOPHILS % (AUTO) 0.7 % (0.0-2.0); EOSINOPHILS % (AUTO) 3.1 % (1.0-6.0); HEMATOCRIT 37.8 % (36-46); LYMPHOCYTES # (AUTO) 4.2 K/uL (1.0-4.8); LYMPHOCYTES % (AUTO) 36.2 % (22.0-44.0); MEAN CORPUSCULAR HGB CONC 31.7 G/dL (31.0-37.0); MEAN CORPUSCULAR VOLUME 82 fL (80-100); MONOCYTES # (AUTO) 0.6 K/uL (0.1-1.0); MONOCYTES % (AUTO) 4.8 % (2.0-9.0); NEUTROPHILS # (AUTO) 6.4 K/uL (1.8-7.7); NEUTROPHILS % (AUTO) 55.2 % (40.0-70.0); PLATELET COUNT (AUTO) 262 K/uL (150-450); RED BLOOD CELL COUNT(AUTO) 4.59 MIL/uL (4.00-5.20); RED CELL DISTRIBUTION WIDTH 15.1 % (11.5-14.5); WHITE BLOOD COUNT (AUTO) 11.7 K/uL (4.5-11.0)
[2023-04-18 08:56] VITALS: BP 104/60; PULSE 84; RESP 18; TEMP 98; O2SAT 97
[2023-04-18 11:57] LABS: GLUCOMETER DEV NAME(LOC) BV3S.; GLUCOSE,POINT OF CARE 110 MG/DL (70-110)
[2023-04-18] MEDS: CloZAPine 25 MG TABLET PO SCH (12:18)
[2023-04-18 16:46] LABS: GLUCOMETER DEV NAME(LOC) BV3S.; GLUCOSE,POINT OF CARE 189 MG/DL (70-110)
[2023-04-18 20:38] VITALS: BP 141/85; PULSE 78; RESP 18; TEMP 98; O2SAT 78
[2023-04-18] MEDS: HALOPERIDOL 10 MG TABLET PO SCH (20:44)
[2023-04-18 21:41] LABS: GLUCOMETER DEV NAME(LOC) BV3S.; GLUCOSE,POINT OF CARE 84 MG/DL (70-110)
[2023-04-19 05:51] LABS: GLUCOMETER DEV NAME(LOC) BV3S.; GLUCOSE,POINT OF CARE 104 MG/DL (70-110)
[2023-04-19] MEDS: CloZAPine 25 MG TABLET PO SCH ×2 (08:54→20:03)
[2023-04-19 09:54] VITALS: BP 125/92; PULSE 77; RESP 20; TEMP 97.1; O2SAT 77
[2023-04-19 17:31] LABS: GLUCOMETER DEV NAME(LOC) BV3S.; GLUCOSE,POINT OF CARE 102 MG/DL (70-110)
[2023-04-19 20:27] VITALS: BP 109/67; PULSE 80; RESP 18; TEMP 97.9; O2SAT 98
[2023-04-19 20:31] LABS: GLUCOMETER DEV NAME(LOC) BV3S.; GLUCOSE,POINT OF CARE 128 MG/DL (70-110)
[2023-04-20 06:10] LABS: GLUCOMETER DEV NAME(LOC) BV3S.; GLUCOSE,POINT OF CARE 90 MG/DL (70-110)
[2023-04-20 08:17] VITALS: BP 126/79; PULSE 92; RESP 18; TEMP 98.3; O2SAT 98
[2023-04-20] MEDS: CloZAPine 25 MG TABLET PO SCH ×2 (08:28→20:25)
[2023-04-20 11:56] LABS: GLUCOMETER DEV NAME(LOC) BV3S.; GLUCOSE,POINT OF CARE 99 MG/DL (70-110)
[2023-04-20 17:11] LABS: GLUCOMETER DEV NAME(LOC) BV3S.; GLUCOSE,POINT OF CARE 134 MG/DL (70-110)
[2023-04-20 20:21] VITALS: BP 113/60; PULSE 80; RESP 18; TEMP 97.8; O2SAT 99
[2023-04-20] MEDS: HALOPERIDOL 10 MG TABLET PO SCH (20:29)
[2023-04-21 06:21] LABS: GLUCOMETER DEV NAME(LOC) BV3S.; GLUCOSE,POINT OF CARE 105 MG/DL (70-110)
[2023-04-21] MEDS: PARoxetine HCL 20 MG TABLET PO SCH (08:28)
[2023-04-21] MEDS: CloZAPine 25 MG TABLET PO SCH (08:28)
[2023-04-21 08:36] VITALS: RESP 18
[2023-04-21 11:46] LABS: GLUCOMETER DEV NAME(LOC) BV3S.; GLUCOSE,POINT OF CARE 121 MG/DL (70-110)
[2023-04-21 16:36] LABS: GLUCOMETER DEV NAME(LOC) BV3S.; GLUCOSE,POINT OF CARE 144 MG/DL (70-110)
[2023-04-21 20:16] LABS: GLUCOMETER DEV NAME(LOC) BV3S.; GLUCOSE,POINT OF CARE 121 MG/DL (70-110)
[2023-04-21 20:23] VITALS: BP 122/67; PULSE 78; RESP 17; TEMP 97.7
[2023-04-22 06:31] LABS: GLUCOMETER DEV NAME(LOC) BV3S.; GLUCOSE,POINT OF CARE 98 MG/DL (70-110)
[2023-04-22] MEDS: PARoxetine HCL 20 MG TABLET PO SCH (08:41)
[2023-04-22 10:07] VITALS: RESP 18
[2023-04-22 11:51] LABS: GLUCOMETER DEV NAME(LOC) BV3S.; GLUCOSE,POINT OF CARE 92 MG/DL (70-110)
[2023-04-22 16:41] LABS: GLUCOMETER DEV NAME(LOC) BV3S.; GLUCOSE,POINT OF CARE 136 MG/DL (70-110)
[2023-04-22 20:21] VITALS: BP 124/74; PULSE 95; RESP 18; TEMP 98.4
[2023-04-22 20:36] LABS: GLUCOMETER DEV NAME(LOC) BV3S.; GLUCOSE,POINT OF CARE 122 MG/DL (70-110)
[2023-04-23 06:21] LABS: GLUCOMETER DEV NAME(LOC) BV3S.; GLUCOSE,POINT OF CARE 91 MG/DL (70-110)
[2023-04-23] MEDS: CloZAPine 25 MG TABLET PO SCH (08:51)
[2023-04-23 10:00] VITALS: BP 118/76; PULSE 88; RESP 18; TEMP 97.9; O2SAT 98
[2023-04-23 11:51] LABS: GLUCOMETER DEV NAME(LOC) BV3S.; GLUCOSE,POINT OF CARE 99 MG/DL (70-110)
[2023-04-23 16:56] LABS: GLUCOMETER DEV NAME(LOC) BV3S.; GLUCOSE,POINT OF CARE 154 MG/DL (70-110)
[2023-04-23] MEDS: CloZAPine 100 MG TABLET PO SCH (20:16)
[2023-04-23 20:26] LABS: GLUCOMETER DEV NAME(LOC) BV3S.; GLUCOSE,POINT OF CARE 109 MG/DL (70-110)
[2023-04-23 20:55] VITALS: BP 110/80; PULSE 86; RESP 16; TEMP 97.3; O2SAT 96
[2023-04-24 06:26] LABS: GLUCOMETER DEV NAME(LOC) BV3S.; GLUCOSE,POINT OF CARE 108 MG/DL (70-110)
[2023-04-24] MEDS: CloZAPine 25 MG TABLET PO SCH (08:48)
[2023-04-24 11:37] LABS: GLUCOMETER DEV NAME(LOC) BV3S.; GLUCOSE,POINT OF CARE 102 MG/DL (70-110)
[2023-04-24 14:40] VITALS: RESP 16; TEMP 97.8
[2023-04-24 16:26] LABS: GLUCOMETER DEV NAME(LOC) BV3S.; GLUCOSE,POINT OF CARE 168 MG/DL (70-110)
[2023-04-24 20:29] VITALS: BP 123/63; PULSE 96; RESP 18; TEMP 97.6; O2SAT 97
[2023-04-24 21:21] LABS: GLUCOMETER DEV NAME(LOC) BV3S.; GLUCOSE,POINT OF CARE 168 MG/DL (70-110)
[2023-04-24] MEDS: CloZAPine 100 MG TABLET PO SCH (21:21)
[2023-04-25 07:05] LABS: GLUCOMETER DEV NAME(LOC) BV3S.; GLUCOSE,POINT OF CARE 126 MG/DL (70-110)
[2023-04-25 08:17] VITALS: RESP 18
[2023-04-25] MEDS: CloZAPine 25 MG TABLET PO SCH (08:31)
[2023-04-25] MEDS: PARoxetine HCL 20 MG TABLET PO SCH (08:32)
[2023-04-25 12:06] LABS: GLUCOMETER DEV NAME(LOC) BV3S.; GLUCOSE,POINT OF CARE 187 MG/DL (70-110)
[2023-04-25 16:41] LABS: GLUCOMETER DEV NAME(LOC) BV3S.; GLUCOSE,POINT OF CARE 172 MG/DL (70-110)
[2023-04-25] MEDS ORDERED: GABAPENTIN 300 MG CAPSULE PO PRN (18:15)
[2023-04-25 21:16] LABS: GLUCOMETER DEV NAME(LOC) BV3S.; GLUCOSE,POINT OF CARE 159 MG/DL (70-110)
[2023-04-25] MEDS: CloZAPine 100 MG TABLET PO SCH (22:02)
[2023-04-25 23:27] VITALS: BP 128/66; PULSE 90; RESP 18; TEMP 97.8; O2SAT 98
[2023-04-26 06:41] LABS: GLUCOMETER DEV NAME(LOC) BV3S.; GLUCOSE,POINT OF CARE 109 MG/DL (70-110)
[2023-04-26] MEDS: CloZAPine 100 MG TABLET PO SCH (08:17)
[2023-04-26 08:31] VITALS: RESP 18
[2023-04-26 11:46] LABS: GLUCOMETER DEV NAME(LOC) BV3S.; GLUCOSE,POINT OF CARE 141 MG/DL (70-110)
[2023-04-26 17:06] LABS: GLUCOMETER DEV NAME(LOC) BV3S.; GLUCOSE,POINT OF CARE 192 MG/DL (70-110)
[2023-04-26] MEDS: ONDANSETRON HCL 4 MG TABLET PO PRN (17:21)
[2023-04-26 20:19] VITALS: BP 129/75; PULSE 92; RESP 18; TEMP 98.5; O2SAT 94
[2023-04-26 20:36] LABS: GLUCOMETER DEV NAME(LOC) BV3S.; GLUCOSE,POINT OF CARE 147 MG/DL (70-110)
[2023-04-26] MEDS: MAGNESIUM HYDROXIDE SUSPENSION 30 ML UDCUP PO PRN (22:06)
[2023-04-27 05:56] LABS: GLUCOMETER DEV NAME(LOC) BV3S.; GLUCOSE,POINT OF CARE 111 MG/DL (70-110)
[2023-04-27 11:51] LABS: GLUCOMETER DEV NAME(LOC) BV3S.; GLUCOSE,POINT OF CARE 193 MG/DL (70-110)
[2023-04-27 16:36] LABS: GLUCOMETER DEV NAME(LOC) BV3S.; GLUCOSE,POINT OF CARE 141 MG/DL (70-110)
[2023-04-27 20:36] LABS: GLUCOMETER DEV NAME(LOC) BV3S.; GLUCOSE,POINT OF CARE 161 MG/DL (70-110)
[2023-04-27 20:40] VITALS: BP 111/72; PULSE 100; RESP 19; TEMP 97.7; O2SAT 96
[2023-04-28 06:16] LABS: GLUCOMETER DEV NAME(LOC) BV3S.; GLUCOSE,POINT OF CARE 143 MG/DL (70-110)
[2023-04-28] MEDS: CloZAPine 25 MG TABLET PO SCH (08:31)
[2023-04-28 11:16] LABS: GLUCOMETER DEV NAME(LOC) BV3S.; GLUCOSE,POINT OF CARE 194 MG/DL (70-110)
[2023-04-28 16:51] LABS: GLUCOMETER DEV NAME(LOC) BV3S.; GLUCOSE,POINT OF CARE 191 MG/DL (70-110)
[2023-04-28] MEDS: CloZAPine 100 MG TABLET PO SCH (20:06)
[2023-04-28] MEDS: GuaiFENesin/D-METHORPHAN [SUGAR-FREE] 200-20MG/10 ML SYRUP UDCUP PO PRN (20:33)
[2023-04-28] MEDS: BENZOCAINE/MENTHOL LOZENGE PO PRN (20:33)
[2023-04-28 20:36] LABS: GLUCOMETER DEV NAME(LOC) BV3S.; GLUCOSE,POINT OF CARE 141 MG/DL (70-110)
[2023-04-28] MEDS: AZITHROMYCIN 500 MG TABLET PO ONE (21:33)
[2023-04-28 23:52] VITALS: RESP 18
[2023-04-29 06:17] LABS: GLUCOMETER DEV NAME(LOC) BV3S.; GLUCOSE,POINT OF CARE 102 MG/DL (70-110)
[2023-04-29 08:15] VITALS: RESP 16
[2023-04-29] MEDS: AZITHROMYCIN 250 MG TABLET PO SCH (08:16)
[2023-04-29] MEDS: CloZAPine 25 MG TABLET PO SCH (08:17)
[2023-04-29 08:20] VITALS: BP 115/78; PULSE 88; RESP 18; O2SAT 98
[2023-04-29 08:21] LABS: BASOPHILS % (AUTO) 0.3 % (0.0-2.0); EOSINOPHILS % (AUTO) 2.6 % (1.0-6.0); HEMOGLOBIN 12.3 g/dL (12.0-16.0); LYMPHOCYTES # (AUTO) 2.1 K/uL (1.0-4.8); LYMPHOCYTES % (AUTO) 24.2 % (22.0-44.0); MEAN CORPUSCULAR HEMOGLOBIN 26.4 pg (26.0-34.0); MEAN CORPUSCULAR HGB CONC 32.3 G/dL (31.0-37.0); MEAN CORPUSCULAR VOLUME 82 fL (80-100); MONOCYTES # (AUTO) 0.6 K/uL (0.1-1.0); MONOCYTES % (AUTO) 7.6 % (2.0-9.0); NEUTROPHILS # (AUTO) 5.5 K/uL (1.8-7.7); NEUTROPHILS % (AUTO) 65.3 % (40.0-70.0); PLATELET COUNT (AUTO) 307 K/uL (150-450); RED BLOOD CELL COUNT(AUTO) 4.64 MIL/uL (4.00-5.20); RED CELL DISTRIBUTION WIDTH 14.8 % (11.5-14.5); WHITE BLOOD COUNT (AUTO) 8.5 K/uL (4.5-11.0)
[2023-04-29 11:46] LABS: GLUCOMETER DEV NAME(LOC) BV3S.; GLUCOSE,POINT OF CARE 176 MG/DL (70-110)
[2023-04-29 17:01] LABS: GLUCOMETER DEV NAME(LOC) BV3S.; GLUCOSE,POINT OF CARE 206 MG/DL (70-110)
[2023-04-29] MEDS: HALOPERIDOL 5 MG TABLET PO PRN (17:42)
[2023-04-29] MEDS: CloZAPine 100 MG TABLET PO SCH (20:11)
[2023-04-29 20:31] LABS: GLUCOMETER DEV NAME(LOC) BV3S.; GLUCOSE,POINT OF CARE 182 MG/DL (70-110)
[2023-04-29 21:48] VITALS: BP 130/76; PULSE 99; RESP 20; TEMP 98.2
[2023-04-30 06:31] LABS: GLUCOMETER DEV NAME(LOC) BV3S.; GLUCOSE,POINT OF CARE 101 MG/DL (70-110)
[2023-04-30] MEDS: CloZAPine 100 MG TABLET PO SCH ×2 (08:49→20:39)
[2023-04-30 11:31] LABS: GLUCOMETER DEV NAME(LOC) BV3S.; GLUCOSE,POINT OF CARE 124 MG/DL (70-110)
[2023-04-30 17:00] LABS: GLUCOMETER DEV NAME(LOC) BV3S.; GLUCOSE,POINT OF CARE 123 MG/DL (70-110)
[2023-04-30] MEDS: DOCUSATE SODIUM 100 MG CAPSULE PO PRN (20:53)
[2023-04-30 21:14] VITALS: BP 134/81; PULSE 114; RESP 18; TEMP 96.9; O2SAT 99
[2023-04-30 21:16] LABS: GLUCOMETER DEV NAME(LOC) BV3S.; GLUCOSE,POINT OF CARE 168 MG/DL (70-110)
[2023-05-01 06:17] LABS: GLUCOMETER DEV NAME(LOC) BV3S.; GLUCOSE,POINT OF CARE 122 MG/DL (70-110)
[2023-05-01 10:02] VITALS: BP 95/52; PULSE 96; RESP 16; TEMP 98.5; O2SAT 96
[2023-05-01 16:41] LABS: GLUCOMETER DEV NAME(LOC) BV3S.; GLUCOSE,POINT OF CARE 196 MG/DL (70-110)
[2023-05-01 20:21] LABS: GLUCOMETER DEV NAME(LOC) BV3S.; GLUCOSE,POINT OF CARE 134 MG/DL (70-110)
[2023-05-01 20:28] VITALS: BP 119/84; PULSE 100; RESP 18; TEMP 98.6; O2SAT 95
[2023-05-02 05:09] LABS: CLOZAPINE & NORCLOZAPINE 317 ng/mL; NORCLOZAPINE 74 ng/mL (Not Estab.)
[2023-05-02 07:01] LABS: GLUCOMETER DEV NAME(LOC) BV3S.; GLUCOSE,POINT OF CARE 113 MG/DL (70-110)
[2023-05-02 09:16] VITALS: RESP 18
[2023-05-02 17:12] LABS: GLUCOMETER DEV NAME(LOC) BV3S.; GLUCOSE,POINT OF CARE 166 MG/DL (70-110)
[2023-05-02] MEDS: CloZAPine 100 MG TABLET PO SCH (20:21)
[2023-05-02] MEDS: IBUPROFEN 600 MG TABLET PO PRN (20:44)
[2023-05-02 21:01] LABS: GLUCOMETER DEV NAME(LOC) BV3S.; GLUCOSE,POINT OF CARE 166 MG/DL (70-110)
[2023-05-02 21:25] VITALS: BP 136/76; PULSE 107; RESP 18; TEMP 97.9; O2SAT 96
[2023-05-02 21:26] VITALS: RESP 18
[2023-05-02 21:44] VITALS: RESP 17
[2023-05-03 07:01] LABS: GLUCOMETER DEV NAME(LOC) BV3S.; GLUCOSE,POINT OF CARE 125 MG/DL (70-110)
[2023-05-03 08:23] VITALS: RESP 18
[2023-05-04 03:26] LABS: GLUCOMETER DEV NAME(LOC) BV3S.; GLUCOSE,POINT OF CARE 191 MG/DL (70-110)
[2023-05-04 03:26] LABS: GLUCOMETER DEV NAME(LOC) BV3S.; GLUCOSE,POINT OF CARE 176 MG/DL (70-110)
[2023-05-04 03:26] LABS: GLUCOMETER DEV NAME(LOC) BV3S.; GLUCOSE,POINT OF CARE 179 MG/DL (70-110)
[2023-05-04 06:16] LABS: GLUCOMETER DEV NAME(LOC) BV3S.; GLUCOSE,POINT OF CARE 143 MG/DL (70-110)
[2023-05-04] MEDS: PARoxetine HCL 20 MG TABLET PO SCH (08:27)
[2023-05-04 11:27] LABS: GLUCOMETER DEV NAME(LOC) BV3S.; GLUCOSE,POINT OF CARE 163 MG/DL (70-110)
[2023-05-04 17:21] LABS: GLUCOMETER DEV NAME(LOC) BV3S.; GLUCOSE,POINT OF CARE 202 MG/DL (70-110)
[2023-05-04] MEDS: BusPIRone HCL 15 MG TABLET PO SCH (20:35)
[2023-05-04 20:37] VITALS: BP 142/74; PULSE 102; RESP 18; TEMP 97.6; O2SAT 99
[2023-05-04 20:51] LABS: GLUCOMETER DEV NAME(LOC) BV3S.; GLUCOSE,POINT OF CARE 157 MG/DL (70-110)
[2023-05-04 23:05] VITALS: BP 138/88; PULSE 88; RESP 18; TEMP 97.2; O2SAT 98
[2023-05-05 06:21] LABS: GLUCOMETER DEV NAME(LOC) BV3S.; GLUCOSE,POINT OF CARE 110 MG/DL (70-110)
[2023-05-05] MEDS: FLUoxetine HCL 20 MG CAPSULE PO SCH (08:13)
[2023-05-05] MEDS: PARoxetine HCL 20 MG TABLET PO SCH (08:13)
[2023-05-05 08:35] VITALS: BP 120/68; PULSE 89; RESP 16; TEMP 98; O2SAT 96
[2023-05-05 17:42] LABS: GLUCOMETER DEV NAME(LOC) BV3S.; GLUCOSE,POINT OF CARE 197 MG/DL (70-110)
[2023-05-05 20:00] VITALS: BP 118/57; PULSE 110; RESP 18; TEMP 97.7; O2SAT 95
[2023-05-05 21:16] LABS: GLUCOMETER DEV NAME(LOC) BV3S.; GLUCOSE,POINT OF CARE 203 MG/DL (70-110)
[2023-05-05] MEDS: CloZAPine 100 MG TABLET PO SCH (21:30)
[2023-05-06 06:16] LABS: GLUCOMETER DEV NAME(LOC) BV3S.; GLUCOSE,POINT OF CARE 150 MG/DL (70-110)
[2023-05-06 08:26] VITALS: BP 126/74; PULSE 89; RESP 16; TEMP 97.9; O2SAT 99
[2023-05-06] MEDS: PARoxetine HCL 10 MG TABLET PO SCH (08:32)
[2023-05-06 11:51] LABS: GLUCOMETER DEV NAME(LOC) BV3S.; GLUCOSE,POINT OF CARE 126 MG/DL (70-110)
[2023-05-06 16:31] LABS: GLUCOMETER DEV NAME(LOC) BV3S.; GLUCOSE,POINT OF CARE 163 MG/DL (70-110)
[2023-05-06 19:56] LABS: GLUCOMETER DEV NAME(LOC) BV3S.; GLUCOSE,POINT OF CARE 161 MG/DL (70-110)
[2023-05-06 21:04] VITALS: BP 148/92; PULSE 106; RESP 16; TEMP 98; O2SAT 96
[2023-05-07 06:16] LABS: GLUCOMETER DEV NAME(LOC) BV3S.; GLUCOSE,POINT OF CARE 125 MG/DL (70-110)
[2023-05-07 09:42] VITALS: BP 117/61; PULSE 92; RESP 20; TEMP 97.1; O2SAT 99
[2023-05-07 17:31] LABS: GLUCOMETER DEV NAME(LOC) BV3S.; GLUCOSE,POINT OF CARE 163 MG/DL (70-110)
[2023-05-07 20:50] LABS: GLUCOMETER DEV NAME(LOC) BV3S.; GLUCOSE,POINT OF CARE 198 MG/DL (70-110)
[2023-05-07] MEDS: ACETAMINOPHEN 325 MG TABLET PO PRN (22:06)
[2023-05-07] MEDS: GABAPENTIN 300 MG CAPSULE PO PRN (22:07)
[2023-05-07 22:20] VITALS: BP 130/74; PULSE 134; RESP 16; TEMP 97; O2SAT 96
[2023-05-08 06:36] LABS: GLUCOMETER DEV NAME(LOC) BV3S.; GLUCOSE,POINT OF CARE 127 MG/DL (70-110)
[2023-05-08 07:56] LABS: EOSINOPHILS % (AUTO) 5.6 % (1.0-6.0); HEMATOCRIT 39.3 % (36-46); HEMOGLOBIN 12.7 g/dL (12.0-16.0); LYMPHOCYTES # (AUTO) 3.2 K/uL (1.0-4.8); LYMPHOCYTES % (AUTO) 34.3 % (22.0-44.0); MEAN CORPUSCULAR HEMOGLOBIN 26.6 pg (26.0-34.0); MEAN CORPUSCULAR HGB CONC 32.3 G/dL (31.0-37.0); MEAN CORPUSCULAR VOLUME 82 fL (80-100); MONOCYTES # (AUTO) 0.3 K/uL (0.1-1.0); MONOCYTES % (AUTO) 3.6 % (2.0-9.0); NEUTROPHILS # (AUTO) 5.2 K/uL (1.8-7.7); NEUTROPHILS % (AUTO) 55.5 % (40.0-70.0); PLATELET COUNT (AUTO) 376 K/uL (150-450); RED BLOOD CELL COUNT(AUTO) 4.76 MIL/uL (4.00-5.20); RED CELL DISTRIBUTION WIDTH 14.6 % (11.5-14.5); WHITE BLOOD COUNT (AUTO) 9.3 K/uL (4.5-11.0)
[2023-05-08 08:14] VITALS: BP 126/79; PULSE 82; RESP 16; TEMP 98.2; O2SAT 99
[2023-05-08 11:25] LABS: GLUCOMETER DEV NAME(LOC) BV3S.; GLUCOSE,POINT OF CARE 208 MG/DL (70-110)
[2023-05-08 17:07] LABS: GLUCOMETER DEV NAME(LOC) BV3S.; GLUCOSE,POINT OF CARE 233 MG/DL (70-110)
[2023-05-08 20:26] LABS: GLUCOMETER DEV NAME(LOC) BV3S.; GLUCOSE,POINT OF CARE 220 MG/DL (70-110)
[2023-05-09] MEDS: ESZOPICLONE 3 MG TABLET PO PRN (00:17)
[2023-05-09 00:32] VITALS: BP 137/72; PULSE 108; RESP 18; TEMP 98.2; O2SAT 95
[2023-05-09 06:17] LABS: GLUCOMETER DEV NAME(LOC) BV3S.; GLUCOSE,POINT OF CARE 179 MG/DL (70-110)
[2023-05-09 08:25] VITALS: RESP 16
[2023-05-09] MEDS: FLUoxetine HCL 20 MG CAPSULE PO SCH (09:01)
[2023-05-09 12:11] LABS: GLUCOMETER DEV NAME(LOC) BV3S.; GLUCOSE,POINT OF CARE 223 MG/DL (70-110)
[2023-05-09 17:32] LABS: GLUCOMETER DEV NAME(LOC) BV3S.; GLUCOSE,POINT OF CARE 181 MG/DL (70-110)
[2023-05-09] MEDS ORDERED: HYDROCORTISONE 2.5% 30 GM CREAM TP PRN (18:00)
[2023-05-09 21:16] LABS: GLUCOMETER DEV NAME(LOC) BV3S.; GLUCOSE,POINT OF CARE 172 MG/DL (70-110)
[2023-05-09 21:33] VITALS: BP 142/76; PULSE 102; RESP 18; TEMP 98.6; O2SAT 99
[2023-05-10 06:21] LABS: GLUCOMETER DEV NAME(LOC) BV3S.; GLUCOSE,POINT OF CARE 102 MG/DL (70-110)
[2023-05-10 08:25] VITALS: BP 126/82; PULSE 92; RESP 16; TEMP 98; O2SAT 99
[2023-05-10 18:02] LABS: GLUCOMETER DEV NAME(LOC) BV3S.; GLUCOSE,POINT OF CARE 306 MG/DL (70-110)
[2023-05-10] MEDS ORDERED: NALT50TA33 PO (19:24)
== END 2023-05-10 18:35 | disposition left against medical advice (07) | DRG 750 ==
LOC: EMS 15:09 → B3A 17:51
PROVIDERS: ADMIT Psychiatry & Neurology Psychiatry; ATTEND Psychiatry & Neurology Psychiatry
PROC: GZHZZZZ Group Psychotherapy (ICD-10-PCS; principal; 2023-05-10)
PROC: GZ51ZZZ Individual Psychotherapy, Behavioral (ICD-10-PCS; 2023-05-10)
DX: F25.1 Schizoaffective disorder, depressive type (principal); E11.9 Type 2 diabetes mellitus without complications; E78.5 Hyperlipidemia, unspecified; I10 Essential (primary) hypertension; K59.00 Constipation, unspecified; Z20.822 Contact with and (suspected) exposure to COVID-19; F41.9 Anxiety disorder, unspecified; F15.90 Other stimulant use, unspecified, uncomplicated; Z53.29 Procedure and treatment not carried out because of patient's decision for other reasons; G47.00 Insomnia, unspecified; Z87.891 Personal history of nicotine dependence; Z91.199 Patient's noncompliance with other medical treatment and regimen due to unspecified reason; Z91.148 Patient's other noncompliance with medication regimen for other reason
CPT/HCPCS: 80053; 80159; 80164; 82962; 84703; 85025; 87081; 99285; G0480; Q0162; Q9967

== ENCOUNTER 2023-05-11 20:46 | Emergency (ER) | payer MEDICAID, OTHER ==
[~2023-05-11] VITALS: Ht 170.2 cm; Wt 131.8 kg
[~2023-05-11 20:46] MED LIST changes: -BUSP15 PO; -DIVA500T69 PO; -DOCU-385 PO; -HALO10TA21 PO; -LINA5TAB PO; -LISI-892 PO; -MELA5TAB40 PO; -METF-1211 PO; -MODA100T65 PO; -OMEG-135 PO; -PARO-37 PO; -[UNRECOGNIZED DRUG - CODE] PO
[2023-05-11 21:27] VITALS: BP 112/68; PULSE 102; RESP 18; TEMP 97.9
[2023-05-11 22:13] LABS: APPEARANCE,URINE CLEAR (CLEAR); BILIRUBIN,URINE NEGATIVE (NEGATIVE); COLOR,URINE LIGHT YELLOW (YELLOW); GLUCOSE, URINE (UA) >=1000 mg/dL (NEGATIVE); KETONES,URINE TRACE mg/dL (NEGATIVE); LEUKOCYTE ESTERASE ,URINE NEGATIVE (NEGATIVE); NITRATE,URINE NEGATIVE (NEGATIVE); OCCULT BLOOD,URINE NEGATIVE (NEGATIVE); PH,URINE 5.5 (5.0-8.0); PH,URINE DRUG SCREEN 5.5 (5.0-8.0); PROTEIN,URINE TRACE mg/dL (NEGATIVE); SPECIFIC GRAVITIY, URINE 1.037 (1.003-1.030); UROBILINOGEN,URINE <=1.0 mg/dL (<=1.0)
[2023-05-11] MEDS: OLANZapine 10 MG TABLET PO ONE (22:14)
[2023-05-11 22:20] LABS: ALCOHOL, URINE DRUG SCREEN NEGATIVE (NEGATIVE); AMPHET/METH SCREEN,URINE POSITIVE (NEGATIVE); BARBITURATE SCREEN, URINE NEGATIVE (NEGATIVE); BENZODIAZEPINES SCREEN,URINE NEGATIVE (NEGATIVE); CANNABINOID SCREEN,URINE NEGATIVE (NEGATIVE); COCAINE SCREEN,URINE NEGATIVE (NEGATIVE); METHADONE SCREEN, URINE NEGATIVE (NEGATIVE); OPIATE SCREEN,URINE NEGATIVE (NEGATIVE); PHENCYCLIDINE SCREEN,URINE NEGATIVE (NEGATIVE)
[2023-05-11 22:41] LABS: SQUAMOUS EPITHELIAL CELL,UR Few /LPF (None Seen)
[2023-05-11 22:42] LABS: BACTERIA,URINE None Seen /HPF (None Seen); RBC,URINE None Seen /HPF (0-2)
[2023-05-11 23:32] LABS: BASOPHILS % (AUTO) 1.3 % (0.0-2.0); EOSINOPHILS % (AUTO) 5.8 % (1.0-6.0); HEMATOCRIT 38.2 % (36-46); HEMOGLOBIN 12.3 g/dL (12.0-16.0); LYMPHOCYTES # (AUTO) 2.5 K/uL (1.0-4.8); LYMPHOCYTES % (AUTO) 24.5 % (22.0-44.0); MEAN CORPUSCULAR HEMOGLOBIN 26.4 pg (26.0-34.0); MEAN CORPUSCULAR HGB CONC 32.2 G/dL (31.0-37.0); MEAN CORPUSCULAR VOLUME 82 fL (80-100); MONOCYTES # (AUTO) 0.5 K/uL (0.1-1.0); MONOCYTES % (AUTO) 4.8 % (2.0-9.0); NEUTROPHILS # (AUTO) 6.6 K/uL (1.8-7.7); NEUTROPHILS % (AUTO) 63.6 % (40.0-70.0); PLATELET COUNT (AUTO) 343 K/uL (150-450); RED BLOOD CELL COUNT(AUTO) 4.66 MIL/uL (4.00-5.20); RED CELL DISTRIBUTION WIDTH 14.9 % (11.5-14.5); WHITE BLOOD COUNT (AUTO) 10.4 K/uL (4.5-11.0)
[2023-05-11 23:55] LABS: ANION GAP 12 mmol/L (8-16); CALCIUM, TOTAL 9.2 mg/dL (8.8-10.5); CARBON DIOXIDE 26 mmol/L (22-29); CHLORIDE 101 mmol/L (98-107); CREATININE 1.01 mg/dL (0.60-1.30); GLOMERULAR FILTR. RATE CALC > 60 mL/min (>60); GLUCOSE,RANDOM 204 mg/dL (70-110); POTASSIUM 3.9 mmol/L (3.5-5.1); SODIUM SERUM 139 mmol/L (136-145); UREA NITROGEN, BLOOD 17 mg/dL (7-18)
[2023-05-11 23:56] LABS: ALCOHOL, BLOOD (SERUM) < 3 mg/dL (0-10)
[2023-05-12 00:03] LABS: ALANINE AMINOTRANSFERASE 39 U/L (12-78); ALBUMIN 3.7 g/dL (3.4-5.0); ALKALINE PHOSPHATASE 103 U/L (46-116); ASPARTATE AMINOTRANSFERASE 26 U/L (15-37); BILIRUBIN,TOTAL 0.2 mg/dL (0.1-1.0); TOTAL PROTEIN, SERUM 7.4 g/dL (6.4-8.2)
== END 2023-05-12 06:35 | disposition home or self-care (01) ==
LOC: EMS 20:54
DX: F25.1 Schizoaffective disorder, depressive type (principal); F15.10 Other stimulant abuse, uncomplicated; F41.9 Anxiety disorder, unspecified; J45.909 Unspecified asthma, uncomplicated; F17.210 Nicotine dependence, cigarettes, uncomplicated; F14.90 Cocaine use, unspecified, uncomplicated; Z88.6 Allergy status to analgesic agent
CPT/HCPCS: 99285; 80053; 81001; 84703; 85025; 36415; 80307; G0480; 81003

== ENCOUNTER 2023-05-12 10:47 | Emergency (ER) | payer OTHER ==
[~2023-05-12] VITALS: Ht 172.7 cm; Wt 132.7 kg
[2023-05-12 10:56] VITALS: TEMP 98.2
[2023-05-12 13:05] LABS: BASOPHILS % (AUTO) 0.9 % (0.0-2.0); EOSINOPHILS % (AUTO) 3.5 % (1.0-6.0); HEMATOCRIT 36.4 % (36-46); HEMOGLOBIN 11.9 g/dL (12.0-16.0); LYMPHOCYTES # (AUTO) 1.5 K/uL (1.0-4.8); LYMPHOCYTES % (AUTO) 13.5 % (22.0-44.0); MEAN CORPUSCULAR HEMOGLOBIN 26.8 pg (26.0-34.0); MEAN CORPUSCULAR HGB CONC 32.8 G/dL (31.0-37.0); MEAN CORPUSCULAR VOLUME 82 fL (80-100); MONOCYTES # (AUTO) 0.5 K/uL (0.1-1.0); MONOCYTES % (AUTO) 4.3 % (2.0-9.0); NEUTROPHILS # (AUTO) 8.4 K/uL (1.8-7.7); NEUTROPHILS % (AUTO) 77.8 % (40.0-70.0); PLATELET COUNT (AUTO) 319 K/uL (150-450); RED BLOOD CELL COUNT(AUTO) 4.45 MIL/uL (4.00-5.20); WHITE BLOOD COUNT (AUTO) 10.8 K/uL (4.5-11.0)
[2023-05-12 13:10] LABS: ANION GAP 10 mmol/L (8-16); CALCIUM, TOTAL 8.8 mg/dL (8.8-10.5); CARBON DIOXIDE 26 mmol/L (22-29); CHLORIDE 104 mmol/L (98-107); CREATININE 0.97 mg/dL (0.60-1.30); GLOMERULAR FILTR. RATE CALC > 60 mL/min (>60); GLUCOSE,RANDOM 199 mg/dL (70-110); POTASSIUM 4.3 mmol/L (3.5-5.1); SODIUM SERUM 140 mmol/L (136-145); UREA NITROGEN, BLOOD 17 mg/dL (7-18)
[2023-05-12 13:16] LABS: ALANINE AMINOTRANSFERASE 51 U/L (12-78); ALBUMIN 3.5 g/dL (3.4-5.0); ALKALINE PHOSPHATASE 102 U/L (46-116); ASPARTATE AMINOTRANSFERASE 35 U/L (15-37); BILIRUBIN,TOTAL 0.2 mg/dL (0.1-1.0); TOTAL PROTEIN, SERUM 6.9 g/dL (6.4-8.2)
[2023-05-12 13:28] LABS: ALCOHOL, BLOOD (SERUM) < 3 mg/dL (0-10)
[2023-05-12 15:00] VITALS: BP 122/76; PULSE 97; RESP 16
== END 2023-05-12 16:00 | disposition home or self-care (01) ==
LOC: EMS 10:47
DX: F20.9 Schizophrenia, unspecified (principal); F15.10 Other stimulant abuse, uncomplicated; F41.9 Anxiety disorder, unspecified; J45.909 Unspecified asthma, uncomplicated; F31.9 Bipolar disorder, unspecified; F17.210 Nicotine dependence, cigarettes, uncomplicated; F14.90 Cocaine use, unspecified, uncomplicated
CPT/HCPCS: 99285; 80053; 85025; 36415; G0480

== ENCOUNTER 2023-06-05 17:08 | Inpatient (IN) | payer MEDICAID ==
[~2023-06-05] VITALS: Ht 170.2 cm; Wt 138.0 kg
[2023-06-05] MEDS ORDERED: LOPERAMIDE HCL 2 MG CAPSULE PO PRN (17:45)
[2023-06-05] MEDS ORDERED: TUBERCULIN, PURIFIED PROTEIN DERIVATIVE 5 TU/0.1 ML SYRINGE ID ONE (17:45)
[2023-06-05 23:45] VITALS: BP 115/67; PULSE 81; RESP 17; TEMP 97.1; O2SAT 98
[2023-06-06] MEDS: DIVALPROEX SODIUM 500 MG ER TABLET PO SCH (01:04)
[2023-06-06] MEDS: MELATONIN 5 MG TABLET PO SCH (01:05)
[2023-06-06] MEDS: HALOPERIDOL 10 MG TABLET PO SCH (01:05)
[2023-06-06 08:33] VITALS: RESP 18
[2023-06-06] MEDS: NALTREXONE HCL 50 MG TABLET PO SCH (08:39)
[2023-06-06] MEDS: OMEGA-3/DHA/EPA/FISH OIL 1,000 MG CAPSULE PO SCH (08:42)
[2023-06-06] MEDS: BENZTROPINE MESYLATE 1 MG TABLET PO SCH (08:42)
[2023-06-06] MEDS: FOLIC ACID 1 MG TABLET PO SCH (08:42)
[2023-06-06] MEDS: MULTIVITAMINS WITH MINERALS, THERAPEUTIC TABLET PO SCH (08:42)
[2023-06-06] MEDS: THIAMINE 100 MG TABLET PO SCH (08:43)
[2023-06-06] MEDS: LORazepam 2 MG TABLET PO PRN (08:43)
[2023-06-06 17:59] VITALS: RESP 18
[2023-06-06] MEDS ORDERED: GLUCAGON,HUMAN RECOMBINANT 1 MG VIAL IM PRN (18:15)
[2023-06-06] MEDS: ATORVASTATIN CALCIUM 10 MG TABLET PO SCH (20:25)
[2023-06-06 20:57] VITALS: BP 111/43; PULSE 70; RESP 16; TEMP 97.5; O2SAT 96
[2023-06-07 05:56] LABS: GLUCOMETER DEV NAME(LOC) BV3S.; GLUCOSE,POINT OF CARE 127 MG/DL (70-110)
[2023-06-07] MEDS: MetFORMIN HCL 500 MG TABLET PO SCH (06:07)
[2023-06-07] MEDS: LISINOPRIL 5 MG TABLET PO SCH (08:13)
[2023-06-07] MEDS: LinaGLIPtin 5 MG TABLET PO SCH (08:14)
[2023-06-07 08:17] VITALS: BP 122/84; PULSE 76; RESP 16; TEMP 98.4; O2SAT 98
[2023-06-07] MEDS ORDERED: GABAPENTIN 300 MG CAPSULE PO PRN (13:45)
[2023-06-07 17:00] LABS: GLUCOMETER DEV NAME(LOC) BV3S.; GLUCOSE,POINT OF CARE 119 MG/DL (70-110)
[2023-06-07 22:05] LABS: GLUCOMETER DEV NAME(LOC) BV3S.; GLUCOSE,POINT OF CARE 126 MG/DL (70-110)
[2023-06-07 22:24] VITALS: BP 130/71; PULSE 98; RESP 16; TEMP 97.5; O2SAT 95
[2023-06-08 07:11] LABS: GLUCOMETER DEV NAME(LOC) BV3S.; GLUCOSE,POINT OF CARE 119 MG/DL (70-110)
[2023-06-08 08:30] VITALS: BP 122/84; PULSE 84; RESP 16; TEMP 98; O2SAT 99
[2023-06-08] MEDS ORDERED: HALOPERIDOL DECANOATE 100 MG/ML VIAL IM ONE (14:15)
[2023-06-08 16:41] LABS: GLUCOMETER DEV NAME(LOC) BV3S.; GLUCOSE,POINT OF CARE 140 MG/DL (70-110)
[2023-06-08] MEDS: BENZTROPINE MESYLATE 0.5 MG TABLET PO SCH (17:18)
[2023-06-08] MEDS: MAG HYDROX/ALUMINUM HYD/SIMETH ES 30 ML SUSPENSION UDCUP PO PRN (18:28)
[2023-06-08 20:52] VITALS: BP 139/67; PULSE 95; RESP 18; TEMP 97.2; O2SAT 97
[2023-06-08 21:36] LABS: GLUCOMETER DEV NAME(LOC) BV3S.; GLUCOSE,POINT OF CARE 136 MG/DL (70-110)
[2023-06-08] MEDS: HALOPERIDOL 10 MG TABLET PO ONE (22:30)
[2023-06-09 06:25] LABS: GLUCOMETER DEV NAME(LOC) BV3S.; GLUCOSE,POINT OF CARE 113 MG/DL (70-110)
[2023-06-09 07:26] LABS: BASOPHILS % (AUTO) 0.5 % (0.0-2.0); EOSINOPHILS % (AUTO) 4.6 % (1.0-6.0); HEMATOCRIT 38.4 % (36-46); HEMOGLOBIN 12.5 g/dL (12.0-16.0); LYMPHOCYTES # (AUTO) 4.3 K/uL (1.0-4.8); LYMPHOCYTES % (AUTO) 37.1 % (22.0-44.0); MEAN CORPUSCULAR HEMOGLOBIN 26.8 pg (26.0-34.0); MEAN CORPUSCULAR HGB CONC 32.7 G/dL (31.0-37.0); MEAN CORPUSCULAR VOLUME 82 fL (80-100); MONOCYTES # (AUTO) 0.6 K/uL (0.1-1.0); NEUTROPHILS # (AUTO) 6.1 K/uL (1.8-7.7); NEUTROPHILS % (AUTO) 52.8 % (40.0-70.0); PLATELET COUNT (AUTO) 336 K/uL (150-450); RED BLOOD CELL COUNT(AUTO) 4.68 MIL/uL (4.00-5.20); RED CELL DISTRIBUTION WIDTH 14.2 % (11.5-14.5); WHITE BLOOD COUNT (AUTO) 11.6 K/uL (4.5-11.0)
[2023-06-09 07:52] LABS: HEMOGLOBIN A1C 6.9 % (3.8-5.6)
[2023-06-09 08:09] LABS: ALANINE AMINOTRANSFERASE 41 U/L (12-78); ALBUMIN 3.3 g/dL (3.4-5.0); ALKALINE PHOSPHATASE 90 U/L (46-116); ANION GAP 11 mmol/L (8-16); ASPARTATE AMINOTRANSFERASE 17 U/L (15-37); BILIRUBIN,TOTAL 0.4 mg/dL (0.1-1.0); CALCIUM, TOTAL 8.5 mg/dL (8.8-10.5); CARBON DIOXIDE 24 mmol/L (22-29); CHLORIDE 104 mmol/L (98-107); CHOL/HDL RATIO 3.7 (3.9-5.7); CHOLESTEROL 130 mg/dL (131-200); CREATININE 1.01 mg/dL (0.60-1.30); GLOMERULAR FILTR. RATE CALC > 60 mL/min (>60); GLUCOSE,RANDOM 105 mg/dL (70-110); HCG,QUANTITATIVE < 1 mIU/mL (0-6); HDL CHOLESTEROL 35 mg/dL (40-60); LDL CHOL (CALC.) 69 mg/dL (0-130); POTASSIUM 3.9 mmol/L (3.5-5.1); SODIUM SERUM 139 mmol/L (136-145); THYROID STIMULATING HORMONE 1.54 uIU/mL (0.36-3.74); TOTAL PROTEIN, SERUM 7.1 g/dL (6.4-8.2); TRIGLYCERIDES 128 mg/dL (15-150); UREA NITROGEN, BLOOD 17 mg/dL (7-18)
[2023-06-09 08:22] VITALS: BP 118/79; PULSE 86; RESP 18; TEMP 97.8; O2SAT 98
[2023-06-09] MEDS: HydrOXYzine PAMOATE 50 MG CAPSULE PO PRN (08:43)
[2023-06-09] MEDS: CloZAPine 25 MG TABLET PO SCH (08:46)
[2023-06-09 16:46] LABS: GLUCOMETER DEV NAME(LOC) BV3S.; GLUCOSE,POINT OF CARE 90 MG/DL (70-110)
[2023-06-09] MEDS: HALOPERIDOL 10 MG TABLET PO SCH (20:05)
[2023-06-09 23:01] VITALS: BP 120/73; PULSE 80; RESP 17; TEMP 97; O2SAT 98
[2023-06-10 08:27] VITALS: RESP 18
[2023-06-10] MEDS: CloZAPine 25 MG TABLET PO SCH ×2 (08:59→21:20)
[2023-06-10] MEDS: INSULIN LISPRO 100 UNITS/ML SQ PRN (16:30)
[2023-06-10 16:50] LABS: GLUCOMETER DEV NAME(LOC) BV3S.; GLUCOSE,POINT OF CARE 156 MG/DL (70-110)
[2023-06-10 21:32] VITALS: BP 117/58; PULSE 77; RESP 16; TEMP 97; O2SAT 95
[2023-06-10] MEDS: ACETAMINOPHEN 325 MG TABLET PO PRN (21:32)
[2023-06-10 21:46] LABS: GLUCOMETER DEV NAME(LOC) BV3S.; GLUCOSE,POINT OF CARE 115 MG/DL (70-110)
[2023-06-10 22:19] VITALS: RESP 16; O2SAT 95
[2023-06-11 06:26] LABS: GLUCOMETER DEV NAME(LOC) BV3S.; GLUCOSE,POINT OF CARE 100 MG/DL (70-110)
[2023-06-11 08:18] VITALS: RESP 18
[2023-06-11] MEDS: CloZAPine 25 MG TABLET PO SCH ×2 (09:15→20:12)
[2023-06-11 16:21] LABS: GLUCOMETER DEV NAME(LOC) BV3S.; GLUCOSE,POINT OF CARE 104 MG/DL (70-110)
[2023-06-11 21:43] VITALS: BP 125/63; PULSE 82; RESP 18; TEMP 97.7; O2SAT 99
[2023-06-12 06:50] LABS: GLUCOMETER DEV NAME(LOC) BV3S.; GLUCOSE,POINT OF CARE 107 MG/DL (70-110)
[2023-06-12] MEDS: CloZAPine 25 MG TABLET PO SCH (08:07)
[2023-06-12 08:19] VITALS: RESP 16
[2023-06-12 16:40] LABS: GLUCOMETER DEV NAME(LOC) BV3S.; GLUCOSE,POINT OF CARE 159 MG/DL (70-110)
[2023-06-12 20:06] VITALS: BP 124/73; PULSE 84; RESP 17; TEMP 97.9
[2023-06-13 03:06] LABS: HIV 1-2 SCREEN 4TH GEN W/RFLX Non Reactive (Non Reactive)
[2023-06-13 06:55] LABS: GLUCOMETER DEV NAME(LOC) BV3S.; GLUCOSE,POINT OF CARE 109 MG/DL (70-110)
[2023-06-13] MEDS: FLUoxetine HCL 20 MG CAPSULE PO SCH (08:13)
[2023-06-13 08:18] VITALS: RESP 18
[2023-06-13] MEDS: NICOTINE 21 MG/24 HOUR PATCH TD SCH (12:30)
[2023-06-13 17:00] LABS: GLUCOMETER DEV NAME(LOC) BV3S.; GLUCOSE,POINT OF CARE 129 MG/DL (70-110)
[2023-06-13 21:31] VITALS: BP 119/67; PULSE 89; RESP 18; TEMP 98.2; O2SAT 94
[2023-06-14 06:31] LABS: GLUCOMETER DEV NAME(LOC) BV3S.; GLUCOSE,POINT OF CARE 98 MG/DL (70-110)
[2023-06-14] MEDS: CloZAPine 25 MG TABLET PO SCH (08:20)
[2023-06-14 19:01] LABS: GLUCOMETER DEV NAME(LOC) BV3S.; GLUCOSE,POINT OF CARE 112 MG/DL (70-110)
[2023-06-14] MEDS: CloZAPine 100 MG TABLET PO SCH (20:07)
[2023-06-14 22:28] VITALS: BP 108/74; PULSE 109; RESP 18; TEMP 98.1; O2SAT 95
[2023-06-14 22:29] VITALS: BP 108/74; PULSE 64; RESP 16; TEMP 98.1; O2SAT 96
[2023-06-15 06:40] LABS: GLUCOMETER DEV NAME(LOC) BV3S.; GLUCOSE,POINT OF CARE 95 MG/DL (70-110)
[2023-06-15 08:29] VITALS: BP 106/65; PULSE 95; RESP 20; TEMP 97.8; O2SAT 98
[2023-06-15 08:37] LABS: BASOPHILS % (AUTO) 0.6 % (0.0-2.0); EOSINOPHILS % (AUTO) 2.3 % (1.0-6.0); HEMATOCRIT 36.5 % (36-46); HEMOGLOBIN 11.8 g/dL (12.0-16.0); LYMPHOCYTES # (AUTO) 4.2 K/uL (1.0-4.8); LYMPHOCYTES % (AUTO) 37.6 % (22.0-44.0); MEAN CORPUSCULAR HEMOGLOBIN 26.7 pg (26.0-34.0); MEAN CORPUSCULAR HGB CONC 32.3 G/dL (31.0-37.0); MEAN CORPUSCULAR VOLUME 83 fL (80-100); MONOCYTES # (AUTO) 0.4 K/uL (0.1-1.0); MONOCYTES % (AUTO) 3.8 % (2.0-9.0); NEUTROPHILS # (AUTO) 6.2 K/uL (1.8-7.7); NEUTROPHILS % (AUTO) 55.7 % (40.0-70.0); PLATELET COUNT (AUTO) 300 K/uL (150-450); WHITE BLOOD COUNT (AUTO) 11.2 K/uL (4.5-11.0)
[2023-06-15] MEDS: CloZAPine 25 MG TABLET PO SCH (08:43)
[2023-06-15 16:36] LABS: GLUCOMETER DEV NAME(LOC) BV3S.; GLUCOSE,POINT OF CARE 148 MG/DL (70-110)
[2023-06-15] MEDS: CloZAPine 100 MG TABLET PO SCH (20:01)
[2023-06-15 20:11] LABS: GLUCOMETER DEV NAME(LOC) BV3S.; GLUCOSE,POINT OF CARE 129 MG/DL (70-110)
[2023-06-15 20:23] VITALS: BP 118/54; PULSE 80; TEMP 98; O2SAT 96
[2023-06-16 06:41] LABS: GLUCOMETER DEV NAME(LOC) BV3S.; GLUCOSE,POINT OF CARE 93 MG/DL (70-110)
[2023-06-16] MEDS: CloZAPine 25 MG TABLET PO SCH (08:23)
[2023-06-16] MEDS: FLUoxetine HCL 20 MG CAPSULE PO SCH (08:24)
[2023-06-16 08:29] VITALS: RESP 18
[2023-06-16 20:10] VITALS: BP 126/75; PULSE 86; RESP 18; TEMP 97.9
[2023-06-16] MEDS: CloZAPine 100 MG TABLET PO SCH (21:02)
[2023-06-17 08:48] VITALS: RESP 16
[2023-06-17] MEDS: CloZAPine 100 MG TABLET PO SCH (09:42)
[2023-06-17 17:35] LABS: GLUCOMETER DEV NAME(LOC) BV3S.; GLUCOSE,POINT OF CARE 229 MG/DL (70-110)
[2023-06-17 21:39] VITALS: BP 112/75; PULSE 85; RESP 16; TEMP 97.5
[2023-06-18 08:26] VITALS: BP 127/76; PULSE 86; RESP 17; TEMP 97.8; O2SAT 96
[2023-06-18 17:16] LABS: GLUCOMETER DEV NAME(LOC) BV3S.; GLUCOSE,POINT OF CARE 209 MG/DL (70-110)
[2023-06-18 20:24] VITALS: BP 126/77; PULSE 103; RESP 18; TEMP 98.2; O2SAT 98
[2023-06-19 06:46] LABS: GLUCOMETER DEV NAME(LOC) BV3S.; GLUCOSE,POINT OF CARE 117 MG/DL (70-110)
[2023-06-19 08:34] VITALS: RESP 18
[2023-06-19] MEDS: CloZAPine 25 MG TABLET PO SCH (08:51)
[2023-06-19 17:15] LABS: GLUCOMETER DEV NAME(LOC) BV3S.; GLUCOSE,POINT OF CARE 180 MG/DL (70-110)
[2023-06-19] MEDS: CloZAPine 100 MG TABLET PO SCH (20:17)
[2023-06-20 06:36] LABS: GLUCOMETER DEV NAME(LOC) BV3S.; GLUCOSE,POINT OF CARE 122 MG/DL (70-110)
[2023-06-20 08:17] VITALS: BP 127/83; PULSE 86; RESP 16; TEMP 98; O2SAT 98
[2023-06-20] MEDS: CloZAPine 25 MG TABLET PO SCH (08:25)
[2023-06-20] MEDS: FLUoxetine HCL 20 MG CAPSULE PO SCH (08:25)
[2023-06-20 16:50] LABS: GLUCOMETER DEV NAME(LOC) BV2S.; GLUCOSE,POINT OF CARE 177 MG/DL (70-110)
[2023-06-20 20:12] VITALS: BP 120/64; PULSE 94; RESP 20; TEMP 97.3; O2SAT 96
[2023-06-20] MEDS: CloZAPine 100 MG TABLET PO SCH (20:22)
[2023-06-21] MEDS: CloZAPine 100 MG TABLET PO SCH ×2 (10:08→21:00)
[2023-06-21 10:11] VITALS: BP 112/65; PULSE 101; RESP 18; TEMP 97.7; O2SAT 95
[2023-06-21 17:01] LABS: GLUCOMETER DEV NAME(LOC) BV2S.; GLUCOSE,POINT OF CARE 164 MG/DL (70-110)
[2023-06-21 20:34] VITALS: BP 115/76; PULSE 124; RESP 16; TEMP 97.3; O2SAT 95
[2023-06-21] MEDS ORDERED: CloZAPine 100 MG TABLET PO SCH (21:00)
[2023-06-21] MEDS: PROMETHAZINE HCL 25 MG TABLET PO PRN (21:45)
[2023-06-22] MEDS ORDERED: HALOPERIDOL DECANOATE 100 MG/ML VIAL IM SCH (09:00)
[2023-06-22 09:20] VITALS: BP 119/70; PULSE 102; RESP 17; TEMP 97.7; O2SAT 95
[2023-06-22 11:36] LABS: GLUCOMETER DEV NAME(LOC) BV2S.; GLUCOSE,POINT OF CARE 112 MG/DL (70-110)
[2023-06-22 16:45] LABS: GLUCOMETER DEV NAME(LOC) BV2S.; GLUCOSE,POINT OF CARE 158 MG/DL (70-110)
[2023-06-22 20:00] VITALS: BP 134/78; PULSE 102; RESP 20; TEMP 97.6; O2SAT 99
[2023-06-23 08:28] LABS: BASOPHILS % (AUTO) 0.6 % (0.0-2.0); EOSINOPHILS % (AUTO) 2.4 % (1.0-6.0); LYMPHOCYTES # (AUTO) 3.4 K/uL (1.0-4.8); LYMPHOCYTES % (AUTO) 35.8 % (22.0-44.0); MEAN CORPUSCULAR HEMOGLOBIN 26.5 pg (26.0-34.0); MEAN CORPUSCULAR HGB CONC 32.4 G/dL (31.0-37.0); MEAN CORPUSCULAR VOLUME 82 fL (80-100); MONOCYTES # (AUTO) 0.5 K/uL (0.1-1.0); MONOCYTES % (AUTO) 5.2 % (2.0-9.0); NEUTROPHILS # (AUTO) 5.3 K/uL (1.8-7.7); PLATELET COUNT (AUTO) 271 K/uL (150-450); RED BLOOD CELL COUNT(AUTO) 4.51 MIL/uL (4.00-5.20); RED CELL DISTRIBUTION WIDTH 13.6 % (11.5-14.5); WHITE BLOOD COUNT (AUTO) 9.4 K/uL (4.5-11.0)
[2023-06-23] MEDS: MODAFINIL 100 MG TABLET PO SCH (08:58)
[2023-06-23] MEDS: FLUoxetine HCL 20 MG CAPSULE PO SCH (08:58)
[2023-06-23 11:47] VITALS: BP 125/75; PULSE 94; RESP 18; TEMP 98.1; O2SAT 96
[2023-06-23 16:55] LABS: GLUCOMETER DEV NAME(LOC) BV2S.; GLUCOSE,POINT OF CARE 183 MG/DL (70-110)
[2023-06-23] MEDS: HALOPERIDOL 5 MG TABLET PO PRN (21:51)
[2023-06-23 22:06] VITALS: BP 133/78; PULSE 100; RESP 17; TEMP 98.4; O2SAT 99
[2023-06-24 12:04] VITALS: BP 105/63; PULSE 99; RESP 17; TEMP 98.2; O2SAT 99
[2023-06-24 17:00] LABS: GLUCOMETER DEV NAME(LOC) BV2S.; GLUCOSE,POINT OF CARE 206 MG/DL (70-110)
[2023-06-24 20:02] VITALS: BP 115/76; PULSE 108; RESP 18; TEMP 97.3; O2SAT 98
[2023-06-24 20:35] LABS: GLUCOMETER DEV NAME(LOC) BV2S.; GLUCOSE,POINT OF CARE 197 MG/DL (70-110)
[2023-06-24] MEDS: MAGNESIUM HYDROXIDE SUSPENSION 30 ML UDCUP PO PRN (20:50)
[2023-06-25 06:46] LABS: GLUCOMETER DEV NAME(LOC) BV2S.; GLUCOSE,POINT OF CARE 143 MG/DL (70-110)
[2023-06-25 08:18] VITALS: BP 138/89; PULSE 87; RESP 16; TEMP 97.3; O2SAT 97
[2023-06-25 16:36] LABS: GLUCOMETER DEV NAME(LOC) BV2S.; GLUCOSE,POINT OF CARE 218 MG/DL (70-110)
[2023-06-25 20:36] VITALS: BP 146/88; PULSE 107; RESP 16; TEMP 98.1; O2SAT 95
[2023-06-25 21:01] LABS: GLUCOMETER DEV NAME(LOC) BV2S.; GLUCOSE,POINT OF CARE 209 MG/DL (70-110)
[2023-06-26 08:21] VITALS: BP 121/85; PULSE 92; RESP 18; TEMP 98.2; O2SAT 97
[2023-06-26 08:46] LABS: GLUCOMETER DEV NAME(LOC) BV2S.; GLUCOSE,POINT OF CARE 135 MG/DL (70-110)
[2023-06-26 16:31] LABS: GLUCOMETER DEV NAME(LOC) BV2S.; GLUCOSE,POINT OF CARE 150 MG/DL (70-110)
[2023-06-26 20:09] VITALS: BP 119/79; PULSE 110; RESP 16; TEMP 97.7; O2SAT 96
[2023-06-26] MEDS: ZOLPIDEM TARTRATE 10 MG TABLET PO PRN (21:35)
[2023-06-27] MEDS: MODAFINIL 100 MG TABLET PO SCH (08:40)
[2023-06-27 09:10] VITALS: BP 128/82; PULSE 80; RESP 18; TEMP 97.7; O2SAT 98
[2023-06-27 16:30] LABS: GLUCOMETER DEV NAME(LOC) BV2S.; GLUCOSE,POINT OF CARE 276 MG/DL (70-110)
[2023-06-27 20:40] LABS: GLUCOMETER DEV NAME(LOC) BV2S.; GLUCOSE,POINT OF CARE 240 MG/DL (70-110)
[2023-06-27 21:44] VITALS: BP 99/57; PULSE 76; RESP 16; TEMP 98.6; O2SAT 98
[2023-06-28 08:29] VITALS: BP 123/60; PULSE 86; RESP 16; TEMP 97.8; O2SAT 96
[2023-06-28] MEDS: MODAFINIL 100 MG TABLET PO SCH (09:11)
[2023-06-28 19:29] LABS: GLUCOMETER DEV NAME(LOC) BV2S.; GLUCOSE,POINT OF CARE 300 MG/DL (70-110)
[2023-06-28 20:00] VITALS: BP 124/69; PULSE 103; RESP 16; TEMP 97.8; O2SAT 96
[2023-06-29 07:00] LABS: GLUCOMETER DEV NAME(LOC) BV2S.; GLUCOSE,POINT OF CARE 195 MG/DL (70-110)
[2023-06-29 08:34] LABS: BASOPHILS % (AUTO) 0.5 % (0.0-2.0); EOSINOPHILS % (AUTO) 3.3 % (1.0-6.0); HEMATOCRIT 37.6 % (36-46); HEMOGLOBIN 12.1 g/dL (12.0-16.0); LYMPHOCYTES # (AUTO) 3.4 K/uL (1.0-4.8); MEAN CORPUSCULAR HEMOGLOBIN 26.5 pg (26.0-34.0); MEAN CORPUSCULAR HGB CONC 32.2 G/dL (31.0-37.0); MEAN CORPUSCULAR VOLUME 82 fL (80-100); MONOCYTES # (AUTO) 0.5 K/uL (0.1-1.0); MONOCYTES % (AUTO) 5.6 % (2.0-9.0); NEUTROPHILS # (AUTO) 5.2 K/uL (1.8-7.7); NEUTROPHILS % (AUTO) 54.6 % (40.0-70.0); PLATELET COUNT (AUTO) 325 K/uL (150-450); RED BLOOD CELL COUNT(AUTO) 4.58 MIL/uL (4.00-5.20); RED CELL DISTRIBUTION WIDTH 13.7 % (11.5-14.5); WHITE BLOOD COUNT (AUTO) 9.6 K/uL (4.5-11.0)
[2023-06-29 09:50] VITALS: BP 129/71; PULSE 98; RESP 17; TEMP 97.8; O2SAT 97
[2023-06-29] MEDS: MODAFINIL 100 MG TABLET PO SCH (09:50)
[2023-06-29 17:05] LABS: GLUCOMETER DEV NAME(LOC) BV2S.; GLUCOSE,POINT OF CARE 165 MG/DL (70-110)
[2023-06-29 20:09] VITALS: BP 132/66; PULSE 114; RESP 18; TEMP 98.2; O2SAT 97
[2023-06-30 09:01] VITALS: BP 118/66; PULSE 103; RESP 17; TEMP 98.1; O2SAT 97
[2023-06-30 11:09] LABS: CLOZAPINE & NORCLOZAPINE 563 ng/mL; NORCLOZAPINE 130 ng/mL (Not Estab.)
[2023-06-30] MEDS: CloZAPine 100 MG TABLET PO SCH (20:31)
[2023-06-30 20:53] VITALS: BP 127/72; PULSE 99; RESP 18; TEMP 97.7; O2SAT 97
[2023-07-01 16:35] LABS: GLUCOMETER DEV NAME(LOC) BV2S.; GLUCOSE,POINT OF CARE 180 MG/DL (70-110)
[2023-07-01 18:43] VITALS: RESP 17
[2023-07-01 21:38] VITALS: BP 114/74; PULSE 109; RESP 16; TEMP 97.6; O2SAT 95
[2023-07-01 21:40] LABS: GLUCOMETER DEV NAME(LOC) BV2S.; GLUCOSE,POINT OF CARE 149 MG/DL (70-110)
[2023-07-02 05:51] LABS: GLUCOMETER DEV NAME(LOC) BV2S.; GLUCOSE,POINT OF CARE 140 MG/DL (70-110)
[2023-07-02 09:14] VITALS: BP 115/65; PULSE 96; RESP 17; TEMP 98.2; O2SAT 97
[2023-07-02 16:35] LABS: GLUCOMETER DEV NAME(LOC) BV2S.; GLUCOSE,POINT OF CARE 235 MG/DL (70-110)
[2023-07-02 17:40] VITALS: BP 138/74; PULSE 86; RESP 18; TEMP 96.6; O2SAT 97
[2023-07-02 22:15] VITALS: BP 126/76; PULSE 110; RESP 16; TEMP 99.8; O2SAT 95
[2023-07-03 09:31] VITALS: RESP 18
[2023-07-03 10:08] VITALS: BP 129/60; PULSE 98; RESP 17; TEMP 97.5; O2SAT 98
[2023-07-03] MEDS: DOCUSATE SODIUM 100 MG CAPSULE PO SCH (10:12)
[2023-07-03] MEDS: PHENYLEPHRINE/SHK LV/MIN OIL/PET 57 GM OINTMENT TP SCH (11:35)
[2023-07-03 16:56] LABS: GLUCOMETER DEV NAME(LOC) BV2S.; GLUCOSE,POINT OF CARE 209 MG/DL (70-110)
[2023-07-03 20:28] VITALS: BP 126/71; PULSE 104; RESP 18; TEMP 97.6; O2SAT 98
[2023-07-04 06:05] LABS: GLUCOMETER DEV NAME(LOC) BV2S.; GLUCOSE,POINT OF CARE 215 MG/DL (70-110)
[2023-07-04 09:42] VITALS: BP 102/76; PULSE 98; RESP 18; TEMP 97.6; O2SAT 96
[2023-07-04 20:15] LABS: GLUCOMETER DEV NAME(LOC) BV2S.; GLUCOSE,POINT OF CARE 207 MG/DL (70-110)
[2023-07-04 20:54] VITALS: BP 113/60; PULSE 102; RESP 17; TEMP 97; TEMP 97.9; O2SAT 97
[2023-07-05 08:22] VITALS: RESP 18
[2023-07-05 17:05] LABS: GLUCOMETER DEV NAME(LOC) BV2S.; GLUCOSE,POINT OF CARE 148 MG/DL (70-110)
[2023-07-05 20:21] VITALS: BP 117/74; PULSE 100; RESP 18; TEMP 97.8; O2SAT 99
[2023-07-06 06:06] LABS: GLUCOMETER DEV NAME(LOC) BV2S.; GLUCOSE,POINT OF CARE 108 MG/DL (70-110)
[2023-07-06 08:34] LABS: BASOPHILS % (AUTO) 0.6 % (0.0-2.0); EOSINOPHILS % (AUTO) 4.2 % (1.0-6.0); HEMATOCRIT 39.2 % (36-46); HEMOGLOBIN 12.5 g/dL (12.0-16.0); LYMPHOCYTES # (AUTO) 3.8 K/uL (1.0-4.8); LYMPHOCYTES % (AUTO) 41.4 % (22.0-44.0); MEAN CORPUSCULAR HEMOGLOBIN 26.2 pg (26.0-34.0); MEAN CORPUSCULAR HGB CONC 31.8 G/dL (31.0-37.0); MEAN CORPUSCULAR VOLUME 82 fL (80-100); MONOCYTES # (AUTO) 0.4 K/uL (0.1-1.0); MONOCYTES % (AUTO) 4.8 % (2.0-9.0); NEUTROPHILS # (AUTO) 4.5 K/uL (1.8-7.7); PLATELET COUNT (AUTO) 305 K/uL (150-450); RED BLOOD CELL COUNT(AUTO) 4.75 MIL/uL (4.00-5.20); RED CELL DISTRIBUTION WIDTH 14.2 % (11.5-14.5); WHITE BLOOD COUNT (AUTO) 9.1 K/uL (4.5-11.0)
[2023-07-06 09:34] VITALS: BP 154/67; PULSE 94; RESP 18; TEMP 97.7; O2SAT 98
[2023-07-06] MEDS: TUBERCULIN, PURIFIED PROTEIN DERIVATIVE 5 TU/0.1 ML SYRINGE ID ONE (14:57)
[2023-07-06 16:41] LABS: GLUCOMETER DEV NAME(LOC) BV2S.; GLUCOSE,POINT OF CARE 129 MG/DL (70-110)
[2023-07-06 20:30] VITALS: BP 125/86; PULSE 110; RESP 18; TEMP 97.7; O2SAT 97
[2023-07-07 06:16] LABS: GLUCOMETER DEV NAME(LOC) BV2S.; GLUCOSE,POINT OF CARE 114 MG/DL (70-110)
[2023-07-07 09:11] VITALS: BP 110/59; PULSE 99; RESP 17; TEMP 97.7; O2SAT 94
[2023-07-07 16:45] LABS: GLUCOMETER DEV NAME(LOC) BV2X.2; GLUCOSE,POINT OF CARE 122 MG/DL (70-110)
[2023-07-07 20:56] VITALS: BP 129/91; PULSE 106; RESP 18; TEMP 97.6; O2SAT 97
[2023-07-08 10:00] VITALS: BP 114/66; PULSE 90; RESP 17; TEMP 98; O2SAT 95
[2023-07-08 16:51] LABS: GLUCOMETER DEV NAME(LOC) BV2S.; GLUCOSE,POINT OF CARE 170 MG/DL (70-110)
[2023-07-08 20:54] VITALS: BP 150/83; PULSE 98; RESP 20; TEMP 97.1; O2SAT 98
[2023-07-09 08:57] VITALS: RESP 18
[2023-07-09 09:48] VITALS: BP 109/65; PULSE 89; RESP 18; TEMP 97.6; O2SAT 95
[2023-07-09 20:30] VITALS: BP 112/85; PULSE 106; RESP 17; TEMP 97.1; O2SAT 96
[2023-07-10 06:10] LABS: GLUCOMETER DEV NAME(LOC) BV2S.; GLUCOSE,POINT OF CARE 119 MG/DL (70-110)
[2023-07-10 08:39] VITALS: RESP 18
[2023-07-10 19:20] LABS: GLUCOMETER DEV NAME(LOC) BV2S.; GLUCOSE,POINT OF CARE 142 MG/DL (70-110)
[2023-07-10 21:16] VITALS: BP 126/71; PULSE 91; RESP 17; TEMP 98.1; O2SAT 97
[2023-07-11 13:38] VITALS: RESP 17
[2023-07-11 16:45] LABS: GLUCOMETER DEV NAME(LOC) BV2S.; GLUCOSE,POINT OF CARE 135 MG/DL (70-110)
[2023-07-11 20:19] VITALS: RESP 20
[2023-07-12 10:00] VITALS: BP 120/69; PULSE 89; RESP 18; TEMP 97.6; O2SAT 96
[2023-07-12 21:01] LABS: GLUCOMETER DEV NAME(LOC) BV2S.; GLUCOSE,POINT OF CARE 194 MG/DL (70-110)
[2023-07-12 21:31] VITALS: BP 142/87; PULSE 102; RESP 19; TEMP 97.9; O2SAT 96
[2023-07-13 09:01] VITALS: RESP 18
[2023-07-13 10:00] VITALS: BP 127/79; PULSE 99; RESP 18; TEMP 98.2; O2SAT 95
[2023-07-13 16:25] LABS: GLUCOMETER DEV NAME(LOC) BV2S.; GLUCOSE,POINT OF CARE 177 MG/DL (70-110)
[2023-07-13 20:12] VITALS: BP 129/64; PULSE 101; RESP 16; TEMP 98; O2SAT 97
[2023-07-14 08:11] LABS: BASOPHILS % (AUTO) 0.9 % (0.0-2.0); EOSINOPHILS % (AUTO) 2.8 % (1.0-6.0); HEMATOCRIT 38.2 % (36-46); HEMOGLOBIN 12.3 g/dL (12.0-16.0); LYMPHOCYTES # (AUTO) 3.7 K/uL (1.0-4.8); LYMPHOCYTES % (AUTO) 37.3 % (22.0-44.0); MEAN CORPUSCULAR HEMOGLOBIN 26.5 pg (26.0-34.0); MEAN CORPUSCULAR HGB CONC 32.3 G/dL (31.0-37.0); MEAN CORPUSCULAR VOLUME 82 fL (80-100); MONOCYTES # (AUTO) 0.5 K/uL (0.1-1.0); MONOCYTES % (AUTO) 4.8 % (2.0-9.0); NEUTROPHILS # (AUTO) 5.4 K/uL (1.8-7.7); NEUTROPHILS % (AUTO) 54.2 % (40.0-70.0); PLATELET COUNT (AUTO) 295 K/uL (150-450); RED BLOOD CELL COUNT(AUTO) 4.65 MIL/uL (4.00-5.20); RED CELL DISTRIBUTION WIDTH 14.3 % (11.5-14.5)
[2023-07-14 12:18] VITALS: RESP 17
[2023-07-14 16:10] LABS: GLUCOMETER DEV NAME(LOC) BV2S.; GLUCOSE,POINT OF CARE 155 MG/DL (70-110)
[2023-07-14 21:35] VITALS: BP 113/64; PULSE 97; RESP 16; TEMP 97.1; O2SAT 99
[2023-07-15 09:36] VITALS: RESP 17
[2023-07-15 21:05] VITALS: BP 114/62; PULSE 84; RESP 18; TEMP 97.5; O2SAT 95
[2023-07-15 23:46] LABS: GLUCOMETER DEV NAME(LOC) BV2S.; GLUCOSE,POINT OF CARE 110 MG/DL (70-110)
[2023-07-16 08:12] VITALS: BP 102/60; PULSE 81; RESP 18; TEMP 97.6; O2SAT 97
[2023-07-16 16:31] LABS: GLUCOMETER DEV NAME(LOC) BV2S.; GLUCOSE,POINT OF CARE 173 MG/DL (70-110)
[2023-07-16 20:58] VITALS: BP 109/61; PULSE 84; RESP 17; TEMP 98.6; O2SAT 97
[2023-07-17 09:07] VITALS: BP 98/57; PULSE 84; RESP 16; TEMP 97.2; O2SAT 95
[2023-07-17 09:57] VITALS: BP 110/73
[2023-07-17 13:07] LABS: CLOZAPINE & NORCLOZAPINE 550 ng/mL; NORCLOZAPINE 118 ng/mL (Not Estab.)
[2023-07-17 16:35] LABS: GLUCOMETER DEV NAME(LOC) BV2S.; GLUCOSE,POINT OF CARE 187 MG/DL (70-110)
[2023-07-17 20:20] VITALS: BP 125/85; PULSE 88; RESP 18; TEMP 98; O2SAT 98
[2023-07-17] MEDS: CloZAPine 100 MG TABLET PO SCH (20:25)
[2023-07-18 07:01] LABS: GLUCOMETER DEV NAME(LOC) BV2S.; GLUCOSE,POINT OF CARE 128 MG/DL (70-110)
[2023-07-18 13:49] VITALS: BP 111/87; PULSE 78; RESP 17; TEMP 97.6; O2SAT 99
[2023-07-18 16:27] VITALS: BP 113/72; PULSE 73; RESP 18
[2023-07-18 16:35] LABS: GLUCOMETER DEV NAME(LOC) BV2S.; GLUCOSE,POINT OF CARE 121 MG/DL (70-110)
[2023-07-19 06:56] LABS: GLUCOMETER DEV NAME(LOC) BV2S.; GLUCOSE,POINT OF CARE 90 MG/DL (70-110)
[2023-07-19 09:52] VITALS: BP 101/65; PULSE 88; RESP 18; TEMP 97.5; O2SAT 96
[2023-07-19 16:15] LABS: GLUCOMETER DEV NAME(LOC) BV2S.; GLUCOSE,POINT OF CARE 110 MG/DL (70-110)
[2023-07-19 18:40] VITALS: RESP 18
[2023-07-19 19:36] VITALS: RESP 16
[2023-07-19 20:25] VITALS: BP 136/93; PULSE 92; RESP 18; TEMP 98
[2023-07-19] MEDS ORDERED: ETHYL ALCOHOL 62% ANTISEPTIC NASAL SANITIZER 0.6 ML AMPUL NASAL SCH (21:00)
[2023-07-20 07:00] LABS: GLUCOMETER DEV NAME(LOC) BV2S.; GLUCOSE,POINT OF CARE 90 MG/DL (70-110)
[2023-07-20] MEDS: MUPIROCIN CALCIUM 2% 22 GM OINTMENT NASAL SCH (09:00)
[2023-07-20 16:45] LABS: GLUCOMETER DEV NAME(LOC) BV2S.; GLUCOSE,POINT OF CARE 164 MG/DL (70-110)
[2023-07-20 21:57] VITALS: BP 124/77; PULSE 96; RESP 18; TEMP 97.7
[2023-07-21 06:50] LABS: GLUCOMETER DEV NAME(LOC) BV2S.; GLUCOSE,POINT OF CARE 95 MG/DL (70-110)
[2023-07-21 16:50] LABS: GLUCOMETER DEV NAME(LOC) BV2S.; GLUCOSE,POINT OF CARE 156 MG/DL (70-110)
[2023-07-21 20:34] VITALS: BP 133/79; PULSE 89; RESP 18; TEMP 97.6
[2023-07-22 07:21] LABS: GLUCOMETER DEV NAME(LOC) BV2S.; GLUCOSE,POINT OF CARE 104 MG/DL (70-110)
[2023-07-22 09:00] VITALS: BP 145/85; PULSE 96; RESP 18; TEMP 97.7; O2SAT 96
[2023-07-22 20:54] VITALS: BP 117/64; PULSE 99; RESP 16; TEMP 97.8; O2SAT 96
[2023-07-23 06:11] LABS: GLUCOMETER DEV NAME(LOC) BV2S.; GLUCOSE,POINT OF CARE 82 MG/DL (70-110)
[2023-07-23 10:00] VITALS: BP 126/77; PULSE 86; RESP 17; TEMP 97.7; O2SAT 96
[2023-07-23 20:14] VITALS: BP 119/62; PULSE 85; RESP 18; TEMP 98; O2SAT 96
[2023-07-24 08:18] LABS: HEMATOCRIT 36.4 % (36-46); HEMOGLOBIN 11.6 g/dL (12.0-16.0); LYMPHOCYTES # (AUTO) 3.9 K/uL (1.0-4.8); LYMPHOCYTES % (AUTO) 41.4 % (22.0-44.0); MEAN CORPUSCULAR HEMOGLOBIN 26.5 pg (26.0-34.0); MEAN CORPUSCULAR HGB CONC 31.9 G/dL (31.0-37.0); MEAN CORPUSCULAR VOLUME 83 fL (80-100); MONOCYTES # (AUTO) 0.4 K/uL (0.1-1.0); MONOCYTES % (AUTO) 4.7 % (2.0-9.0); NEUTROPHILS # (AUTO) 4.6 K/uL (1.8-7.7); NEUTROPHILS % (AUTO) 48.9 % (40.0-70.0); PLATELET COUNT (AUTO) 259 K/uL (150-450); RED BLOOD CELL COUNT(AUTO) 4.38 MIL/uL (4.00-5.20); RED CELL DISTRIBUTION WIDTH 14.6 % (11.5-14.5); WHITE BLOOD COUNT (AUTO) 9.5 K/uL (4.5-11.0)
[2023-07-24 16:41] LABS: GLUCOMETER DEV NAME(LOC) BV2S.; GLUCOSE,POINT OF CARE 126 MG/DL (70-110)
[2023-07-24 20:09] VITALS: BP 127/72; PULSE 98; RESP 16; TEMP 98.1; O2SAT 96
[2023-07-25 07:16] LABS: GLUCOMETER DEV NAME(LOC) BV2S.; GLUCOSE,POINT OF CARE 86 MG/DL (70-110)
[2023-07-25 09:07] VITALS: BP 93/54; PULSE 80; RESP 18; TEMP 98.1; O2SAT 96
[2023-07-25 16:55] LABS: GLUCOMETER DEV NAME(LOC) BV2S.; GLUCOSE,POINT OF CARE 105 MG/DL (70-110)
[2023-07-26 06:51] LABS: GLUCOMETER DEV NAME(LOC) BV2S.; GLUCOSE,POINT OF CARE 85 MG/DL (70-110)
[2023-07-26 13:49] VITALS: BP 119/76; PULSE 94; RESP 18; TEMP 98.1; O2SAT 98
[2023-07-26 17:10] LABS: GLUCOMETER DEV NAME(LOC) BV2S.; GLUCOSE,POINT OF CARE 155 MG/DL (70-110)
[2023-07-26 21:09] VITALS: BP 152/99; PULSE 85; RESP 19; TEMP 97.6; O2SAT 100
[2023-07-27 09:00] VITALS: BP 130/73; PULSE 96; RESP 18; TEMP 98.1; O2SAT 98
[2023-07-27 11:40] LABS: GLUCOMETER DEV NAME(LOC) BV2S.; GLUCOSE,POINT OF CARE 82 MG/DL (70-110)
[2023-07-27 16:40] LABS: GLUCOMETER DEV NAME(LOC) BV2S.; GLUCOSE,POINT OF CARE 113 MG/DL (70-110)
[2023-07-27] MEDS: MetFORMIN HCL 500 MG TABLET PO SCH (17:16)
[2023-07-27 20:36] VITALS: BP 118/80; PULSE 96; TEMP 96.8; O2SAT 96
[2023-07-28 06:16] LABS: GLUCOMETER DEV NAME(LOC) BV2S.; GLUCOSE,POINT OF CARE 84 MG/DL (70-110)
[2023-07-28 09:15] VITALS: BP_SYST 107; BP_SYST 155; BP_DIAS 63; PULSE 86; PULSE 98; RESP 18; TEMP 97.8; TEMP 97.9; O2SAT 95
[2023-07-28] MEDS: BusPIRone HCL 5 MG TABLET PO SCH (10:32)
[2023-07-28 11:07] LABS: CLOZAPINE & NORCLOZAPINE 541 ng/mL; NORCLOZAPINE 129 ng/mL (Not Estab.)
[2023-07-28 16:51] LABS: GLUCOMETER DEV NAME(LOC) BV2S.; GLUCOSE,POINT OF CARE 169 MG/DL (70-110)
[2023-07-28] MEDS: CloZAPine 100 MG TABLET PO SCH (20:15)
[2023-07-28 20:25] VITALS: BP 116/71; PULSE 100; RESP 18; TEMP 98; O2SAT 97
[2023-07-28 20:55] LABS: GLUCOMETER DEV NAME(LOC) BV2S.; GLUCOSE,POINT OF CARE 102 MG/DL (70-110)
[2023-07-29 08:22] VITALS: BP 114/69; PULSE 95; RESP 18; TEMP 97; O2SAT 96
[2023-07-29 16:51] LABS: GLUCOMETER DEV NAME(LOC) BV2S.; GLUCOSE,POINT OF CARE 226 MG/DL (70-110)
[2023-07-29 21:18] VITALS: BP 101/79; PULSE 103; RESP 18; TEMP 98.2; O2SAT 97
[2023-07-30 05:41] LABS: GLUCOMETER DEV NAME(LOC) BV2S.; GLUCOSE,POINT OF CARE 146 MG/DL (70-110)
[2023-07-30 10:18] VITALS: RESP 18
[2023-07-30 22:15] VITALS: BP 116/74; PULSE 116; RESP 19; TEMP 97.8; O2SAT 98
[2023-07-31 08:02] LABS: BASOPHILS % (AUTO) 0.6 % (0.0-2.0); EOSINOPHILS % (AUTO) 4.2 % (1.0-6.0); HEMATOCRIT 36.5 % (36-46); HEMOGLOBIN 11.8 g/dL (12.0-16.0); LYMPHOCYTES # (AUTO) 3.6 K/uL (1.0-4.8); MEAN CORPUSCULAR HEMOGLOBIN 26.7 pg (26.0-34.0); MEAN CORPUSCULAR HGB CONC 32.2 G/dL (31.0-37.0); MEAN CORPUSCULAR VOLUME 83 fL (80-100); MONOCYTES # (AUTO) 0.4 K/uL (0.1-1.0); MONOCYTES % (AUTO) 5.1 % (2.0-9.0); NEUTROPHILS # (AUTO) 4.1 K/uL (1.8-7.7); NEUTROPHILS % (AUTO) 48.1 % (40.0-70.0); PLATELET COUNT (AUTO) 281 K/uL (150-450); RED BLOOD CELL COUNT(AUTO) 4.41 MIL/uL (4.00-5.20); RED CELL DISTRIBUTION WIDTH 14.5 % (11.5-14.5); WHITE BLOOD COUNT (AUTO) 8.5 K/uL (4.5-11.0)
[2023-07-31 08:48] VITALS: BP 123/78; PULSE 84; RESP 18; TEMP 98.2; O2SAT 96
[2023-07-31 18:01] LABS: GLUCOMETER DEV NAME(LOC) BV2S.; GLUCOSE,POINT OF CARE 188 MG/DL (70-110)
[2023-07-31 20:41] VITALS: BP 123/74; PULSE 89; RESP 16; TEMP 98; O2SAT 94
[2023-08-01 07:11] LABS: GLUCOMETER DEV NAME(LOC) BV2S.; GLUCOSE,POINT OF CARE 167 MG/DL (70-110)
[2023-08-01 10:20] VITALS: BP 125/76; PULSE 101; RESP 18; TEMP 98.1; O2SAT 96
[2023-08-01 17:01] LABS: GLUCOMETER DEV NAME(LOC) BV2S.; GLUCOSE,POINT OF CARE 182 MG/DL (70-110)
[2023-08-01 20:21] VITALS: BP 126/87; PULSE 94; RESP 18; TEMP 98.6; O2SAT 97
[2023-08-02 06:41] LABS: GLUCOMETER DEV NAME(LOC) BV2S.; GLUCOSE,POINT OF CARE 127 MG/DL (70-110)
[2023-08-02 10:22] VITALS: BP 144/83; PULSE 105; RESP 18; TEMP 98.2; O2SAT 95
[2023-08-02 16:46] LABS: GLUCOMETER DEV NAME(LOC) BV2S.; GLUCOSE,POINT OF CARE 233 MG/DL (70-110)
[2023-08-02 20:43] VITALS: BP 117/73; PULSE 99; RESP 18; TEMP 98; O2SAT 95
[2023-08-03 07:01] LABS: GLUCOMETER DEV NAME(LOC) BV2S.; GLUCOSE,POINT OF CARE 108 MG/DL (70-110)
[2023-08-03 08:24] VITALS: BP 107/66; PULSE 98; RESP 18; TEMP 97.8; O2SAT 100
[2023-08-03 16:56] LABS: GLUCOMETER DEV NAME(LOC) BV2S.; GLUCOSE,POINT OF CARE 200 MG/DL (70-110)
[2023-08-03 20:26] VITALS: BP 130/84; PULSE 102; RESP 18; TEMP 97.6; O2SAT 98
[2023-08-04 06:36] LABS: GLUCOMETER DEV NAME(LOC) BV2S.; GLUCOSE,POINT OF CARE 140 MG/DL (70-110)
[2023-08-04 08:26] VITALS: RESP 18
[2023-08-04 18:06] LABS: GLUCOMETER DEV NAME(LOC) BV2S.; GLUCOSE,POINT OF CARE 102 MG/DL (70-110)
[2023-08-04 20:47] VITALS: BP 104/75; PULSE 106; RESP 17; TEMP 97.9; O2SAT 100
[2023-08-05] MEDS: MUPIROCIN CALCIUM 2% 22 GM OINTMENT NASAL SCH (08:41)
[2023-08-05 17:06] LABS: GLUCOMETER DEV NAME(LOC) BV2S.; GLUCOSE,POINT OF CARE 167 MG/DL (70-110)
[2023-08-05 20:30] VITALS: BP 104/64; PULSE 83; RESP 18; TEMP 97.6; O2SAT 98
[2023-08-06 06:56] LABS: GLUCOMETER DEV NAME(LOC) BV2S.; GLUCOSE,POINT OF CARE 211 MG/DL (70-110)
[2023-08-06 10:49] VITALS: BP 123/81; PULSE 90; RESP 16; TEMP 97.5; O2SAT 95
[2023-08-06 17:15] LABS: GLUCOMETER DEV NAME(LOC) BV2S.; GLUCOSE,POINT OF CARE 273 MG/DL (70-110)
[2023-08-06 20:00] VITALS: BP 120/73; PULSE 98; RESP 18; TEMP 98.1; O2SAT 97
[2023-08-07 06:16] LABS: GLUCOMETER DEV NAME(LOC) BV2S.; GLUCOSE,POINT OF CARE 146 MG/DL (70-110)
[2023-08-07 08:34] VITALS: RESP 17
[2023-08-07 08:34] LABS: EOSINOPHILS % (AUTO) 3.7 % (1.0-6.0); HEMATOCRIT 37.7 % (36-46); HEMOGLOBIN 12.3 g/dL (12.0-16.0); LYMPHOCYTES # (AUTO) 3.4 K/uL (1.0-4.8); LYMPHOCYTES % (AUTO) 34.7 % (22.0-44.0); MEAN CORPUSCULAR HEMOGLOBIN 26.8 pg (26.0-34.0); MEAN CORPUSCULAR HGB CONC 32.7 G/dL (31.0-37.0); MEAN CORPUSCULAR VOLUME 82 fL (80-100); MONOCYTES # (AUTO) 0.5 K/uL (0.1-1.0); MONOCYTES % (AUTO) 5.3 % (2.0-9.0); NEUTROPHILS # (AUTO) 5.4 K/uL (1.8-7.7); NEUTROPHILS % (AUTO) 55.3 % (40.0-70.0); PLATELET COUNT (AUTO) 289 K/uL (150-450); RED BLOOD CELL COUNT(AUTO) 4.61 MIL/uL (4.00-5.20); RED CELL DISTRIBUTION WIDTH 14.2 % (11.5-14.5); WHITE BLOOD COUNT (AUTO) 9.7 K/uL (4.5-11.0)
[2023-08-07 16:56] LABS: GLUCOMETER DEV NAME(LOC) BV2S.; GLUCOSE,POINT OF CARE 231 MG/DL (70-110)
[2023-08-07 20:58] VITALS: BP 118/73; PULSE 91; RESP 17; TEMP 98.5; O2SAT 98
[2023-08-08 06:46] LABS: GLUCOMETER DEV NAME(LOC) BV2S.; GLUCOSE,POINT OF CARE 120 MG/DL (70-110)
[2023-08-08] MEDS: GuaiFENesin/D-METHORPHAN [SUGAR-FREE] 200-20MG/10 ML SYRUP UDCUP PO PRN (06:54)
[2023-08-08 10:21] VITALS: BP 113/71; PULSE 102; RESP 18; TEMP 98.7; O2SAT 96
[2023-08-08 17:01] LABS: GLUCOMETER DEV NAME(LOC) BV2S.; GLUCOSE,POINT OF CARE 215 MG/DL (70-110)
[2023-08-08 22:41] VITALS: BP 115/93; PULSE 98; RESP 16; TEMP 98; O2SAT 95
[2023-08-09 08:26] LABS: GLUCOMETER DEV NAME(LOC) BV2S.; GLUCOSE,POINT OF CARE 121 MG/DL (70-110)
[2023-08-09 08:34] VITALS: RESP 16
[2023-08-09 17:06] LABS: GLUCOMETER DEV NAME(LOC) BV2S.; GLUCOSE,POINT OF CARE 161 MG/DL (70-110)
[2023-08-09 20:24] VITALS: BP 93/53; PULSE 129; RESP 18; TEMP 98.1; O2SAT 98
[2023-08-10 06:11] LABS: GLUCOMETER DEV NAME(LOC) BV2S.; GLUCOSE,POINT OF CARE 166 MG/DL (70-110)
[2023-08-10 09:35] VITALS: BP 138/97; PULSE 98; RESP 18; TEMP 98.4; O2SAT 96
[2023-08-10 16:46] LABS: GLUCOMETER DEV NAME(LOC) BV2S.; GLUCOSE,POINT OF CARE 215 MG/DL (70-110)
[2023-08-11 06:31] LABS: GLUCOMETER DEV NAME(LOC) BV2S.; GLUCOSE,POINT OF CARE 159 MG/DL (70-110)
[2023-08-11 09:30] VITALS: BP 114/72; PULSE 100; RESP 18; TEMP 97.3; O2SAT 97
[2023-08-11 16:36] LABS: GLUCOMETER DEV NAME(LOC) BV2S.; GLUCOSE,POINT OF CARE 214 MG/DL (70-110)
[2023-08-11 20:52] VITALS: BP 144/85; PULSE 107; RESP 18; TEMP 98; O2SAT 96
[2023-08-12 06:21] LABS: GLUCOMETER DEV NAME(LOC) BV2S.; GLUCOSE,POINT OF CARE 198 MG/DL (70-110)
[2023-08-12 14:00] VITALS: RESP 16
[2023-08-12 17:42] LABS: GLUCOMETER DEV NAME(LOC) BV2S.; GLUCOSE,POINT OF CARE 312 MG/DL (70-110)
[2023-08-12 21:00] VITALS: BP 135/83; PULSE 94; RESP 18; TEMP 97.2; O2SAT 97
[2023-08-13 06:16] LABS: GLUCOMETER DEV NAME(LOC) BV2S.; GLUCOSE,POINT OF CARE 148 MG/DL (70-110)
[2023-08-13 08:27] VITALS: BP 116/75; PULSE 92; RESP 18; TEMP 97.8; O2SAT 97
[2023-08-13 20:26] LABS: GLUCOMETER DEV NAME(LOC) BV2S.; GLUCOSE,POINT OF CARE 245 MG/DL (70-110)
[2023-08-13 21:15] VITALS: BP 132/88; PULSE 100; RESP 16; TEMP 98.1; O2SAT 98
[2023-08-14 06:26] LABS: GLUCOMETER DEV NAME(LOC) BV2S.; GLUCOSE,POINT OF CARE 193 MG/DL (70-110)
[2023-08-14 08:09] LABS: BASOPHILS % (AUTO) 0.9 % (0.0-2.0); HEMATOCRIT 38.6 % (36-46); HEMOGLOBIN 12.6 g/dL (12.0-16.0); LYMPHOCYTES # (AUTO) 3.8 K/uL (1.0-4.8); LYMPHOCYTES % (AUTO) 39.3 % (22.0-44.0); MEAN CORPUSCULAR HEMOGLOBIN 26.8 pg (26.0-34.0); MEAN CORPUSCULAR HGB CONC 32.7 G/dL (31.0-37.0); MEAN CORPUSCULAR VOLUME 82 fL (80-100); MONOCYTES # (AUTO) 0.5 K/uL (0.1-1.0); MONOCYTES % (AUTO) 5.1 % (2.0-9.0); NEUTROPHILS % (AUTO) 51.7 % (40.0-70.0); PLATELET COUNT (AUTO) 323 K/uL (150-450); WHITE BLOOD COUNT (AUTO) 9.7 K/uL (4.5-11.0)
[2023-08-14 08:43] VITALS: BP 143/80; PULSE 107; RESP 19; TEMP 98.2; O2SAT 96
[2023-08-14] MEDS ORDERED: LINEZOLID 600 MG TABLET PO SCH (09:30)
[2023-08-14 17:00] LABS: GLUCOMETER DEV NAME(LOC) BV2S.; GLUCOSE,POINT OF CARE 223 MG/DL (70-110)
[2023-08-14] MEDS: LINEZOLID 600 MG TABLET PO SCH (20:12)
[2023-08-14 21:11] VITALS: BP 139/90; PULSE 104; RESP 18; TEMP 98; O2SAT 95
[2023-08-15 06:31] LABS: GLUCOMETER DEV NAME(LOC) BV2S.; GLUCOSE,POINT OF CARE 179 MG/DL (70-110)
[2023-08-15] MEDS: MetFORMIN HCL 500 MG TABLET PO SCH (06:36)
[2023-08-15 10:35] VITALS: BP 128/70; PULSE 69; RESP 18; TEMP 97.2; O2SAT 96
[2023-08-15 16:45] LABS: GLUCOMETER DEV NAME(LOC) BV2S.; GLUCOSE,POINT OF CARE 230 MG/DL (70-110)
[2023-08-15 20:27] VITALS: BP 130/79; PULSE 114; RESP 18; TEMP 98.7; O2SAT 98
[2023-08-16 08:30] VITALS: BP 135/83; PULSE 98; RESP 18; TEMP 97.5; O2SAT 96
[2023-08-16] MEDS: DOXYCYCLINE HYCLATE 100 MG TABLET PO SCH (09:06)
[2023-08-16 17:01] LABS: GLUCOMETER DEV NAME(LOC) BV2S.; GLUCOSE,POINT OF CARE 213 MG/DL (70-110)
[2023-08-16 20:50] VITALS: BP 131/76; PULSE 107; RESP 16; TEMP 97.4; O2SAT 96
[2023-08-17 06:21] LABS: GLUCOMETER DEV NAME(LOC) BV2S.; GLUCOSE,POINT OF CARE 177 MG/DL (70-110)
[2023-08-17 08:12] VITALS: BP 104/52; PULSE 92; RESP 18; TEMP 96.4; O2SAT 97
[2023-08-17 16:31] LABS: GLUCOMETER DEV NAME(LOC) BV2S.; GLUCOSE,POINT OF CARE 219 MG/DL (70-110)
[2023-08-17 20:31] VITALS: BP 156/77; PULSE 95; RESP 18; TEMP 97.2; O2SAT 97
[2023-08-18 08:48] VITALS: BP 108/49; PULSE 97; RESP 17; TEMP 96; O2SAT 96
[2023-08-18 17:10] LABS: GLUCOMETER DEV NAME(LOC) BV2S.; GLUCOSE,POINT OF CARE 236 MG/DL (70-110)
[2023-08-18 22:04] VITALS: BP 120/65; PULSE 106; RESP 19; TEMP 97.3; O2SAT 97
[2023-08-19 06:40] LABS: GLUCOMETER DEV NAME(LOC) BV2S.; GLUCOSE,POINT OF CARE 220 MG/DL (70-110)
[2023-08-19 09:11] VITALS: BP 121/69; PULSE 96; RESP 18; TEMP 97.2; O2SAT 97
[2023-08-19 16:45] LABS: GLUCOMETER DEV NAME(LOC) BV2S.; GLUCOSE,POINT OF CARE 228 MG/DL (70-110)
[2023-08-19 20:21] VITALS: BP 140/72; PULSE 100; RESP 16; TEMP 97.6; O2SAT 95
[2023-08-20 06:35] LABS: GLUCOMETER DEV NAME(LOC) BV2S.; GLUCOSE,POINT OF CARE 134 MG/DL (70-110)
[2023-08-20 08:42] VITALS: BP 143/114; PULSE 89; RESP 17; TEMP 96.1; O2SAT 97
[2023-08-20 09:39] VITALS: BP 119/73
[2023-08-20 16:51] LABS: GLUCOMETER DEV NAME(LOC) BV2S.; GLUCOSE,POINT OF CARE 190 MG/DL (70-110)
[2023-08-20 20:27] VITALS: BP 135/77; PULSE 89; RESP 18; TEMP 97.1; O2SAT 96
[2023-08-21 09:16] LABS: BASOPHILS % (AUTO) 0.7 % (0.0-2.0); EOSINOPHILS % (AUTO) 2.8 % (1.0-6.0); HEMATOCRIT 37.1 % (36-46); LYMPHOCYTES # (AUTO) 4.3 K/uL (1.0-4.8); LYMPHOCYTES % (AUTO) 39.5 % (22.0-44.0); MEAN CORPUSCULAR HEMOGLOBIN 26.6 pg (26.0-34.0); MEAN CORPUSCULAR HGB CONC 32.3 G/dL (31.0-37.0); MEAN CORPUSCULAR VOLUME 83 fL (80-100); MONOCYTES # (AUTO) 0.6 K/uL (0.1-1.0); MONOCYTES % (AUTO) 5.6 % (2.0-9.0); NEUTROPHILS # (AUTO) 5.6 K/uL (1.8-7.7); NEUTROPHILS % (AUTO) 51.4 % (40.0-70.0); PLATELET COUNT (AUTO) 302 K/uL (150-450); RED CELL DISTRIBUTION WIDTH 14.1 % (11.5-14.5)
[2023-08-21 12:29] VITALS: BP 130/78; PULSE 105; RESP 18; TEMP 96.6; O2SAT 94
[2023-08-21 16:46] LABS: GLUCOMETER DEV NAME(LOC) BV2S.; GLUCOSE,POINT OF CARE 155 MG/DL (70-110)
[2023-08-21] MEDS: CloZAPine 100 MG TABLET PO SCH (20:36)
[2023-08-21 21:25] VITALS: BP 100/50; PULSE 71; RESP 18; TEMP 97.5; O2SAT 98
[2023-08-21 21:44] VITALS: RESP 18
[2023-08-21 22:34] VITALS: RESP 18
[2023-08-22 06:15] LABS: GLUCOMETER DEV NAME(LOC) BV2S.; GLUCOSE,POINT OF CARE 156 MG/DL (70-110)
[2023-08-22 10:30] VITALS: BP 123/73; PULSE 92; RESP 17; TEMP 97.8; O2SAT 95
[2023-08-22 16:51] LABS: GLUCOMETER DEV NAME(LOC) BV2S.; GLUCOSE,POINT OF CARE 208 MG/DL (70-110)
[2023-08-22 20:35] VITALS: BP 119/65; PULSE 109; RESP 18; TEMP 97.4; O2SAT 96
[2023-08-23 06:26] LABS: GLUCOMETER DEV NAME(LOC) BV2S.; GLUCOSE,POINT OF CARE 232 MG/DL (70-110)
[2023-08-23 08:25] VITALS: BP 115/88; PULSE 102; RESP 18; TEMP 98.4; O2SAT 96
[2023-08-23] MEDS: PHENYLEPHRINE/SHK LV/MIN OIL/PET 57 GM OINTMENT TP PRN (08:59)
[2023-08-23 16:07] LABS: CLOZAPINE & NORCLOZAPINE 641 ng/mL; NORCLOZAPINE 150 ng/mL (Not Estab.)
[2023-08-23 18:25] LABS: GLUCOMETER DEV NAME(LOC) BV2S.; GLUCOSE,POINT OF CARE 236 MG/DL (70-110)
[2023-08-23 20:49] VITALS: BP 148/70; PULSE 103; RESP 18; TEMP 98.4; O2SAT 97
[2023-08-24 06:50] LABS: GLUCOMETER DEV NAME(LOC) BV2S.; GLUCOSE,POINT OF CARE 136 MG/DL (70-110)
[2023-08-24 08:20] VITALS: BP 103/66; PULSE 84; RESP 18; TEMP 98.4; O2SAT 96
[2023-08-24 16:41] LABS: GLUCOMETER DEV NAME(LOC) BV2S.; GLUCOSE,POINT OF CARE 139 MG/DL (70-110)
[2023-08-25 06:25] LABS: GLUCOMETER DEV NAME(LOC) BV2S.; GLUCOSE,POINT OF CARE 128 MG/DL (70-110)
[2023-08-25 08:22] VITALS: BP 143/83; PULSE 84; RESP 17; TEMP 97.9; O2SAT 95
[2023-08-25 18:00] LABS: GLUCOMETER DEV NAME(LOC) BV2S.; GLUCOSE,POINT OF CARE 159 MG/DL (70-110)
[2023-08-25 20:54] VITALS: BP 104/63; PULSE 97; RESP 18; TEMP 98.4; O2SAT 97
[2023-08-26 06:10] LABS: GLUCOMETER DEV NAME(LOC) BV2S.; GLUCOSE,POINT OF CARE 173 MG/DL (70-110)
[2023-08-26 10:30] VITALS: BP 110/65; PULSE 90; RESP 16; O2SAT 98
[2023-08-26 16:45] LABS: GLUCOMETER DEV NAME(LOC) BV2S.; GLUCOSE,POINT OF CARE 199 MG/DL (70-110)
[2023-08-26 20:28] VITALS: BP 105/58; PULSE 84; RESP 17; TEMP 98.1; O2SAT 98
[2023-08-27 06:15] LABS: GLUCOMETER DEV NAME(LOC) BV2S.; GLUCOSE,POINT OF CARE 138 MG/DL (70-110)
[2023-08-27 08:19] VITALS: BP 143/95; PULSE 98; RESP 18; TEMP 97.8; O2SAT 97
[2023-08-27 18:00] LABS: GLUCOMETER DEV NAME(LOC) BV2S.; GLUCOSE,POINT OF CARE 234 MG/DL (70-110)
[2023-08-27 21:29] VITALS: BP 125/75; PULSE 94; RESP 18; TEMP 97.7; O2SAT 97
[2023-08-28 06:20] LABS: GLUCOMETER DEV NAME(LOC) BV2S.; GLUCOSE,POINT OF CARE 183 MG/DL (70-110)
[2023-08-28 08:05] LABS: BASOPHILS % (AUTO) 0.9 % (0.0-2.0); HEMATOCRIT 37.4 % (36-46); HEMOGLOBIN 12.1 g/dL (12.0-16.0); LYMPHOCYTES # (AUTO) 4.2 K/uL (1.0-4.8); LYMPHOCYTES % (AUTO) 43.3 % (22.0-44.0); MEAN CORPUSCULAR HGB CONC 32.5 G/dL (31.0-37.0); MEAN CORPUSCULAR VOLUME 83 fL (80-100); MONOCYTES # (AUTO) 0.5 K/uL (0.1-1.0); NEUTROPHILS # (AUTO) 4.6 K/uL (1.8-7.7); NEUTROPHILS % (AUTO) 47.8 % (40.0-70.0); PLATELET COUNT (AUTO) 277 K/uL (150-450); RED CELL DISTRIBUTION WIDTH 14.1 % (11.5-14.5); WHITE BLOOD COUNT (AUTO) 9.7 K/uL (4.5-11.0)
[2023-08-28 17:16] LABS: GLUCOMETER DEV NAME(LOC) BV2S.; GLUCOSE,POINT OF CARE 271 MG/DL (70-110)
[2023-08-28] MEDS: CloZAPine 100 MG TABLET PO SCH (20:45)
[2023-08-28 20:54] VITALS: BP 100/45; PULSE 95; RESP 16; TEMP 98.4; O2SAT 97
[2023-08-29 07:06] LABS: GLUCOMETER DEV NAME(LOC) BV2S.; GLUCOSE,POINT OF CARE 130 MG/DL (70-110)
[2023-08-29 08:38] VITALS: BP 106/54; PULSE 85; RESP 18; TEMP 98.8; O2SAT 96
[2023-08-29 17:05] LABS: GLUCOMETER DEV NAME(LOC) BV2S.; GLUCOSE,POINT OF CARE 247 MG/DL (70-110)
[2023-08-29 20:18] VITALS: BP 122/69; PULSE 103; RESP 21; TEMP 98.3; O2SAT 97
[2023-08-29 21:11] LABS: GLUCOMETER DEV NAME(LOC) BV2S.; GLUCOSE,POINT OF CARE 213 MG/DL (70-110)
[2023-08-30 06:25] LABS: GLUCOMETER DEV NAME(LOC) BV2S.; GLUCOSE,POINT OF CARE 142 MG/DL (70-110)
[2023-08-30 08:49] VITALS: BP 115/52; PULSE 96; RESP 18; TEMP 98.2; O2SAT 95
[2023-08-30 16:46] LABS: GLUCOMETER DEV NAME(LOC) BV2S.; GLUCOSE,POINT OF CARE 178 MG/DL (70-110)
[2023-08-30 20:32] VITALS: BP 113/68; PULSE 95; RESP 16; TEMP 97.6; O2SAT 96
[2023-08-31 06:40] LABS: GLUCOMETER DEV NAME(LOC) BV2S.; GLUCOSE,POINT OF CARE 103 MG/DL (70-110)
[2023-08-31 08:10] VITALS: RESP 16
[2023-08-31 12:49] VITALS: BP 106/76; PULSE 110; RESP 16; TEMP 98.2; O2SAT 95
[2023-08-31 16:51] LABS: GLUCOMETER DEV NAME(LOC) BV2S.; GLUCOSE,POINT OF CARE 189 MG/DL (70-110)
[2023-08-31 20:59] VITALS: BP 120/70; PULSE 111; RESP 16; TEMP 97.8; O2SAT 97
[2023-09-01 06:30] LABS: GLUCOMETER DEV NAME(LOC) BV2S.; GLUCOSE,POINT OF CARE 127 MG/DL (70-110)
[2023-09-01 10:10] VITALS: BP 130/83; PULSE 90; RESP 16; TEMP 97.6; O2SAT 99
[2023-09-01 16:51] LABS: GLUCOMETER DEV NAME(LOC) BV2S.; GLUCOSE,POINT OF CARE 178 MG/DL (70-110)
[2023-09-01 20:09] VITALS: BP 145/76; PULSE 117; RESP 18; TEMP 97.2; O2SAT 98
[2023-09-02 06:50] LABS: GLUCOMETER DEV NAME(LOC) BV2S.; GLUCOSE,POINT OF CARE 123 MG/DL (70-110)
[2023-09-02 09:35] VITALS: BP 106/60; PULSE 90; RESP 18; TEMP 98.7; O2SAT 100
[2023-09-02 17:00] LABS: GLUCOMETER DEV NAME(LOC) BV2S.; GLUCOSE,POINT OF CARE 154 MG/DL (70-110)
[2023-09-02 21:49] VITALS: BP 136/72; PULSE 100; RESP 18; TEMP 97.9; O2SAT 99
[2023-09-03 06:46] LABS: GLUCOMETER DEV NAME(LOC) BV2S.; GLUCOSE,POINT OF CARE 133 MG/DL (70-110)
[2023-09-03 09:57] VITALS: RESP 18; TEMP 98
[2023-09-03 17:11] LABS: GLUCOMETER DEV NAME(LOC) BV2S.; GLUCOSE,POINT OF CARE 147 MG/DL (70-110)
[2023-09-03 20:37] VITALS: BP 103/62; PULSE 90; TEMP 98.1; O2SAT 94
[2023-09-04 06:40] LABS: GLUCOMETER DEV NAME(LOC) BV2S.; GLUCOSE,POINT OF CARE 159 MG/DL (70-110)
[2023-09-04 07:58] LABS: BASOPHILS % (AUTO) 0.5 % (0.0-2.0); EOSINOPHILS % (AUTO) 3.3 % (1.0-6.0); HEMATOCRIT 36.9 % (36-46); HEMOGLOBIN 11.8 g/dL (12.0-16.0); LYMPHOCYTES % (AUTO) 43.1 % (22.0-44.0); MEAN CORPUSCULAR HEMOGLOBIN 26.6 pg (26.0-34.0); MEAN CORPUSCULAR HGB CONC 32.1 G/dL (31.0-37.0); MEAN CORPUSCULAR VOLUME 83 fL (80-100); MONOCYTES # (AUTO) 0.5 K/uL (0.1-1.0); MONOCYTES % (AUTO) 7.7 % (2.0-9.0); NEUTROPHILS # (AUTO) 3.1 K/uL (1.8-7.7); NEUTROPHILS % (AUTO) 45.4 % (40.0-70.0); PLATELET COUNT (AUTO) 254 K/uL (150-450); RED BLOOD CELL COUNT(AUTO) 4.45 MIL/uL (4.00-5.20); RED CELL DISTRIBUTION WIDTH 14.2 % (11.5-14.5); WHITE BLOOD COUNT (AUTO) 6.9 K/uL (4.5-11.0)
[2023-09-04 09:34] VITALS: BP 116/65; PULSE 83; RESP 18; TEMP 97.7; O2SAT 89
[2023-09-04 17:10] LABS: GLUCOMETER DEV NAME(LOC) BV2S.; GLUCOSE,POINT OF CARE 309 MG/DL (70-110)
[2023-09-04 21:15] VITALS: BP 144/87; PULSE 107; RESP 18; TEMP 97.9; O2SAT 100
[2023-09-04 22:06] LABS: GLUCOMETER DEV NAME(LOC) BV2S.; GLUCOSE,POINT OF CARE 259 MG/DL (70-110)
[2023-09-05 09:04] VITALS: BP 128/66; PULSE 68; RESP 18; TEMP 98.2; O2SAT 96
[2023-09-05 16:56] LABS: GLUCOMETER DEV NAME(LOC) BV2S.; GLUCOSE,POINT OF CARE 183 MG/DL (70-110)
[2023-09-05 18:06] LABS: CLOZAPINE & NORCLOZAPINE 698 ng/mL; NORCLOZAPINE 155 ng/mL (Not Estab.)
[2023-09-05 21:24] VITALS: BP 140/74; PULSE 74; RESP 17; TEMP 97.6; O2SAT 98
[2023-09-06 09:00] VITALS: RESP 18
[2023-09-06 17:06] LABS: GLUCOMETER DEV NAME(LOC) BV2S.; GLUCOSE,POINT OF CARE 277 MG/DL (70-110)
[2023-09-06 22:20] VITALS: BP 120/73; PULSE 102; RESP 18; TEMP 98; O2SAT 96
[2023-09-07 06:51] LABS: GLUCOMETER DEV NAME(LOC) BV2S.; GLUCOSE,POINT OF CARE 164 MG/DL (70-110)
[2023-09-07 09:00] VITALS: BP 118/76; PULSE 99; RESP 17; TEMP 97.3; O2SAT 96
[2023-09-07 17:36] LABS: GLUCOMETER DEV NAME(LOC) BV2S.; GLUCOSE,POINT OF CARE 141 MG/DL (70-110)
[2023-09-07 20:52] VITALS: BP 150/85; PULSE 106; TEMP 97.5; O2SAT 97
[2023-09-07] MEDS ORDERED: CLOZ100T61 PO (21:36)
[2023-09-07] MEDS ORDERED: MODA100T65 PO (21:36)
[2023-09-07] MEDS ORDERED: MELA5TAB40 PO (21:36)
[2023-09-07] MEDS ORDERED: DIVA500T69 PO (21:36)
[2023-09-07] MEDS ORDERED: BUSP5TAB20 PO (21:36)
[2023-09-07] MEDS ORDERED: FLUO-418 PO (21:36)
[2023-09-08 08:28] VITALS: BP 118/54; PULSE 88; RESP 16; TEMP 97.6; O2SAT 93
[2023-09-08 10:00] VITALS: BP 119/75
== END 2023-09-08 12:14 | DRG 750 ==
LOC: B3A 23:38 → B2S 06-20 16:23
PROVIDERS: ADMIT Psychiatry & Neurology Psychiatry; ATTEND Psychiatry & Neurology Psychiatry
PROC: GZHZZZZ Group Psychotherapy (ICD-10-PCS; principal; 2023-06-05)
PROC: GZ51ZZZ Individual Psychotherapy, Behavioral (ICD-10-PCS; 2023-06-05)
DX: F25.0 Schizoaffective disorder, bipolar type (principal); E11.9 Type 2 diabetes mellitus without complications; R45.851 Suicidal ideations; E66.01 Morbid (severe) obesity due to excess calories; E78.5 Hyperlipidemia, unspecified; F17.200 Nicotine dependence, unspecified, uncomplicated; I10 Essential (primary) hypertension; F15.10 Other stimulant abuse, uncomplicated; F17.210 Nicotine dependence, cigarettes, uncomplicated; J44.9 Chronic obstructive pulmonary disease, unspecified; F31.30 Bipolar disorder, current episode depressed, mild or moderate severity, unspecified; F41.9 Anxiety disorder, unspecified; F94.0 Selective mutism; Z55.9 Problems related to education and literacy, unspecified; Z59.02 Unsheltered homelessness; Z63.9 Problem related to primary support group, unspecified; Z65.3 Problems related to other legal circumstances; Z88.6 Allergy status to analgesic agent; Z91.148 Patient's other noncompliance with medication regimen for other reason; Z68.41 Body mass index [BMI] 40.0-44.9, adult
CPT/HCPCS: 80053; 80061; 80159; 80164; 82962; 83036; 84443; 84702; 84703; 85025; 86592; 87081; 87389; Q9967